=== PATIENT | male | born 1945 | race Caucasian/White ===

== ENCOUNTER 2016-12-07 05:57 | Inpatient (IN) | payer MEDICARE, BC ==
[~2016-12-07 05:57] MED LIST: Albuterol/Ipratropium 3.0-0.5 MG/3 ML Neb Soln NEB ONE; cefOXitin 2 GM in Sodium Chloride 0.9% 50 ML IV ONE
[2016-12-07] MEDS ORDERED: Dextrose 5%-Lactated Ringers 1,000 ML IV SCH ×2 (06:00→07:00)
[2016-12-07] MEDS ORDERED: fentaNYL 250 MCG/5 ML SDV ONE ×2 (07:24→08:21)
[2016-12-07] MEDS ORDERED: Succinylcholine/Normal Saline 200 MG/10 ML Syringe ONE (07:24)
[2016-12-07] MEDS ORDERED: Propofol 200 MG/20 ML SDV ONE (07:24)
[2016-12-07] MEDS ORDERED: Rocuronium 50 MG/5 ML Vial ONE (07:24)
[2016-12-07] MEDS ORDERED: Ondansetron 4 MG/2 ML SDV ONE (07:24)
[2016-12-07] MEDS ORDERED: Midazolam 1 MG/ML 2 ML SDV ONE (07:24)
[2016-12-07] MEDS ORDERED: Dexamethasone 4 MG/ML SDV ONE (07:24)
[2016-12-07] MEDS ORDERED: Neostigmine Methylsulfate 1 MG/ML 5 ML Syringe ONE (07:24)
[2016-12-07] MEDS ORDERED: Etomidate 2 MG/ML 10 ML SDV ONE (07:26)
[2016-12-07] MEDS ORDERED: Levalbuterol HCl 1.25 MG/3 ML Neb NEB ONE (07:30)
[2016-12-07] MEDS ORDERED: ceFAZolin 2 GM in Premix Bag 1 BAG IV ONE (07:45)
[2016-12-07] MEDS ORDERED: ePHEDrine 50 MG/ML SDV ONE (08:05)
[2016-12-07] MEDS ORDERED: Naloxone 0.4 MG/ML SDV IV PRN (08:53)
[2016-12-07] MEDS ORDERED: HYDROmorphone/Normal Saline 15 MG/30 ML PCA IV PRN (09:00)
[2016-12-07] MEDS ORDERED: Ondansetron 4 MG/2 ML SDV IV PRN (10:17)
[2016-12-07] MEDS ORDERED: Levalbuterol HCl 1.25 MG/3 ML Neb INH PRN (10:24)
[2016-12-07] MEDS: Metoclopramide 10 MG/2 ML SDV IV SCH ×3 (10:49→23:35)
[2016-12-07] MEDS: Pantoprazole 40 MG Vial IV SCH (10:49)
[2016-12-07] MEDS ORDERED: Lactated Ringers 1,000 ML ONE (11:42)
[2016-12-07] MEDS: Levalbuterol HCl 1.25 MG/3 ML Neb INH SCH ×2 (13:32→21:00)
[2016-12-07] MEDS: Dextrose 5%-Lactated Ringers 1,000 ML IV SCH ×2 (14:31→20:54)
[2016-12-07] MEDS: ceFAZolin 2 GM in Sodium Chloride 0.9% 50 ML IV SCH ×2 (15:23→23:35)
[2016-12-07] MEDS: Carvedilol 12.5 MG Tab PO SCH (20:59)
[2016-12-07] MEDS: Tamsulosin 0.4 MG Cap.ER PO SCH (20:59)
[2016-12-07] MEDS: QVAR INHALER INH SCH (21:00)
[2016-12-07] MEDS ORDERED: Montelukast 10 MG Tab PO SCH (21:00)
[2016-12-08] MEDS: Dextrose 5%-Lactated Ringers 1,000 ML IV SCH (03:13)
[2016-12-08] MEDS: Metoclopramide 10 MG/2 ML SDV IV SCH ×4 (05:31→22:41)
[2016-12-08] MEDS: ceFAZolin 2 GM in Sodium Chloride 0.9% 50 ML IV SCH (07:32)
[2016-12-08] MEDS: QVAR INHALER INH SCH (07:32)
[2016-12-08] MEDS: Levalbuterol HCl 1.25 MG/3 ML Neb INH SCH (07:32)
[2016-12-08] MEDS ORDERED: Levalbuterol HCl 1.25 MG/3 ML Neb INH PRN (07:56)
[2016-12-08] MEDS ORDERED: Dextrose 5%-Lactated Ringers 1,000 ML IV SCH (08:00)
[2016-12-08] MEDS ORDERED: Losartan 50 MG Tab PO SCH (09:00)
[2016-12-08] MEDS: Carvedilol 12.5 MG Tab PO SCH ×2 (09:13→21:08)
[2016-12-08] MEDS: Pantoprazole 40 MG Vial IV SCH (11:19)
[2016-12-08] MEDS: HYDROmorphone 2 MG Tab PO PRN ×3 (11:33→19:40)
[2016-12-08] MEDS: Tamsulosin 0.4 MG Cap.ER PO SCH (21:08)
[2016-12-09] MEDS: Metoclopramide 10 MG/2 ML SDV IV SCH (05:14)
[2016-12-09 07:46] VITALS: BP 137/87
--- NOTE | 2016-12-10 08:40 | DISCH ---
ADMISSION DIAGNOSES: Gastroesophageal reflux disease refractory to medical management, moderate persistent asthma, dyslipidemia, erectile dysfunction, ejection fraction 39% to 40%, Lexiscan 01/22/2014, environmental allergies, hypertension, obstructive chronic bronchitis, osteoarthrosis involving lower leg, and seasonal affective disorder. 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 HISTORY: David Hebert is a 71-year-old male with longstanding history of GERD refractory to medical management. After preoperative evaluation and discussion of possible risks and possible complications, he wished to proceed with surgical procedure. HOSPITAL COURSE: had his surgery on 12/07/2016. He had no operative complications. On postop day 1, he was started on a clear liquid diet and advanced to full liquid diet. On postop day 2, his pain was well managed. He received dietary instructions. His activity was good. Vital signs were stable, and he was able to be discharged to home. PHYSICAL EXAMINATION: GENERAL: David Hebert is a 71-year-old male. He is alert and orientated. Height is 5 feet 11 inches. Weight is 187 pounds. SKIN: Warm and dry. Color is good. VITAL SIGNS: TPR is 97.7, 78, 18. Blood pressure 116/77. HEENT: Negative. NECK: Supple. HEART: Regular rate and rhythm. LUNGS: Clear. ABDOMEN: Dressings dry and intact. Abdominal binder is on. EXTREMITIES: Without peripheral edema. DISPOSITION: Discharged to home. CONDITION: Stable and improving. FOLLOWUP: Followup appointment with Dagoberto Eagle MD, at [facility] on 12/16/2016 at 8 a.m. HOME MEDICATIONS: Dilaudid 2 mg q.4 hours p.r.n. pain #50. He is to resume his home medication of albuterol; ProAir inhaler 2 puffs every 6 hours; QVAR 80 mcg 2 puffs inhalation twice daily; Pulmicort 0.5 mg inhalation twice daily; carvedilol 12.5 mg oral twice daily; Nexium 40 mg oral daily; Flonase 2 sprays to nasal daily; Advair 250/50 one puff twice daily; albuterol sulfate 2.5 mg/3 mL, 3 mL inhalation every 4 hours p.r.n. shortness of breath; Cozaar 50 mg oral daily; Ocuvite one tablet oral daily; Dulera 200/5 mcg 2 puffs oral twice daily; simvastatin 40 mg oral at bedtime; and Flomax 0.4 mg oral daily. DIET AFTER DISCHARGE: Full liquid diet for 2 weeks. Drink 8 to 10 glasses of water a day. ACTIVITY: No lifting greater than 10 pounds for 2 weeks. Driving; do not drive while on pain medication. Shower and bathing: May shower. Notify provider of fever, increased pain, nausea, or vomiting. Wound incision care; keep site clean and dry. Wear abdominal binder for 2 weeks and as tolerated. Special instructions; use incentive spirometer 10 times every hour while awake for 2 weeks.
--- NOTE | 2016-12-10 09:23 | PN ---
DATE OF SERVICE: 12/08/2016 The patient has been afebrile with stable vital signs. No major problem has been noted overnight. Plan will be to go to a full-liquid diet today, oral pain medication, and have Dietary see the patient regarding dietary management over the next few days. Will tentatively plan for discharge home tomorrow. Dagoberto Eagle MD /[id number]
--- NOTE | 2016-12-11 08:49 | OR ---
DATE OF PROCEDURE: 12/07/2016 PREOPERATIVE DIAGNOSIS: Gastroesophageal reflux disease refractory to medical management. POSTOPERATIVE DIAGNOSES: 1. Gastroesophageal reflux disease refractory to medical management associated with large paraesophageal diaphragmatic hernia. 2. Mediastinal lipoma. OPERATIVE PROCEDURES: 1. Diagnostic laparoscopy with a laparoscopic Lalitha fundoplication along with repair of paraesophageal diaphragmatic hernia with mesh (08799). 2. Excision of mediastinal lipoma (72361). ANESTHESIA: General. CARE SERVICES MANAGER: Tammi Delarosa PA-C. INDICATIONS FOR PROCEDURE: This is 71-year-old presenting with progressively worsening gastroesophageal reflux symptoms. Associated with this is quite a bit in the way of pulmonary symptoms, which were suspicious are related to the reflux problem as well. Plan is to proceed with a Lalitha fundoplication. Potential risks of the procedure, including bleeding, infection, injury to the viscera in the area, or possible complications related to the fundoplication such as dysphagia, gas-bloat syndrome, disorders of gastric emptying rate, as well as possibility of incomplete relief of reflux symptoms were all gone over, along with the remote possibility of cardiopulmonary, septic, or hemorrhagic complications leading to , and he wishes to proceed. DETAILS OF PROCEDURE: The patient was taken to the operating room. After general endotracheal anesthesia was induced, the patient was placed in the lithotomy position, Terry catheter was inserted, and the abdomen was prepped and draped. At 15 cm inferior and 5 cm left of xiphoid process, a transverse incision was made. Peritoneal cavity was entered under direct vision with Optiview trocar and 15 mmHg pressure with CO2. The laparoscope was reinserted. No underlying trocar insertion site injuries were seen. Following this, 4 additional trocars were placed across the upper mid abdomen, and general exploration was undertaken. Upon elevation of the liver, the patient was noted to have a quite large diaphragmatic hernia. This had a major paraesophageal component to it with roughly a third of the stomach being up into the chest. This was gradually reduced, and the patient, upon subsequent dissection, was noted not to have any significant shortening of the esophagus. The peritoneum along the edges of the diaphragmatic hernia was incised and reflected downward. This allowed further dissection of the esophagus from the diaphragmatic crura on each side, and then a retroesophageal window was established. Using continued Harmonic scalpel dissection, the attachments to the distal esophagus were freed up. This eventually led to a very satisfactory intraabdominal esophageal length with Yudy drain being released of any tension around the EG junction. This was measured at 5 cm. In the course of the mediastinal dissection, lipomatous tissue was obtained posterior to the esophagus, as well as a little bit anteriorly. The mediastinal lipoma was then delivered from the field. At this point, the crural repair was accomplished with a series of 0-Ethibond sutures, reinforced with PTFE pledgets. The size of the hiatal hernia led to the decision to proceed with reinforcement of this with Phasix mesh. This was cut such that it lay across the crural repair posteriorly and then alongside the esophagus over the diaphragm on each side, and this was fixed in position with titanium tacking screws. At this point, the omentum was divided away from the greater curvature of the stomach and the mid level of the greater curvature. This was done with Harmonic scalpel, and then dissection continued proximally, dividing the short gastric vessels, including the highest and posterior short gastric vessels. This resulted in a very satisfactory mobile fundus, the latter which was retrieved through the retroesophageal window. A guidewire was then passed orally per Anesthesia and over this, a 54-Spanish Savary dilator was positioned. A 2 cm free stitch fundoplication was then accomplished with 0-Ethibond sutures reinforced with PTFE pledgets. Each of these sutures included bites of the underlying esophagus to help fix it in position, and following the initial fundoplication sutures, on the left and then on the right side, sutures were taken between the diaphragm and the fundus, again with the same suture/pledget combination, to help fix the position of the fundoplication. At this point, no further problems were noted. Trocars were removed. The peritoneal cavity was deflated. The fascia at the 12-mm trocar site, used for the camera, was closed with 0-Vicryl stitch and the skin with 4-0 Vicryl skin stitch. Physician operator assistant i cementing, Tammi Delarosa, played an essential role in assisting in this case, helping to position the patient, retract structures as needed, as well as suturing and cutting sutures as indicated. Her presence improved the patient's safety and decreased the operative time. Dagoberto Eagle MD /[id number]
== END 2016-12-09 08:35 | disposition home or self-care (01) | DRG 327 ==
LOC: JP.SDS 05:57 → JP.MS 05:57 → EDSTATUS 08:00 → JP.2SS 09:45 → UNDOADMIN 09:45 → JP.MS 09:45
PROVIDERS: ADMIT Surgery; ATTEND Surgery
PROC: 0DV44ZZ Restriction of Esophagogastric Junction, Percutaneous Endoscopic Approach (ICD-10-PCS; principal; 2016-12-07)
PROC: 0BUR4JZ (ICD-10-PCS; principal; 2016-12-07)
PROC: 0WBC4ZX Excision of Mediastinum, Percutaneous Endoscopic Approach, Diagnostic (ICD-10-PCS; principal; 2016-12-07)
PROC: 0BUS4JZ (ICD-10-PCS; principal; 2016-12-07)
DX: K21.9 Gastro-esophageal reflux disease without esophagitis (principal); I50.32 Chronic diastolic (congestive) heart failure; K44.9 Diaphragmatic hernia without obstruction or gangrene; I11.0 Hypertensive heart disease with heart failure; G47.30 Sleep apnea, unspecified; Z87.891 Personal history of nicotine dependence; E78.5 Hyperlipidemia, unspecified; J44.9 Chronic obstructive pulmonary disease, unspecified; Z85.828 Personal history of other malignant neoplasm of skin; Z96.652 Presence of left artificial knee joint; Z91.012 Allergy to eggs; Z91.018 Allergy to other foods; Z91.010 Allergy to peanuts; Z88.8 Allergy status to other drugs, medicaments and biological substances; D17.4 Benign lipomatous neoplasm of intrathoracic organs
CPT/HCPCS: 88304; 94640; 94762; A9270-GY; C9113; J0690; J1100; J1170; J2250; J2405; J2704; J2765; J3010; J7042; J7050; J7120

== ENCOUNTER 2016-12-21 05:38 | Day surgery (SDC) | payer MEDICARE, BC ==
[2016-12-21] MEDS: Dextrose 5%-Lactated Ringers 1,000 ML IV SCH ×2 (06:42→10:31)
[2016-12-21] MEDS ORDERED: ceFAZolin 2 GM in Premix Bag 1 BAG IV ONE (07:15)
[2016-12-21] MEDS ORDERED: Meropenem 500 MG SDV ONE (08:00)
[2016-12-21] MEDS ORDERED: Lidocaine 1% with EPINEPHrine 1:100,000 50 ML MDV ONE (08:00)
[2016-12-21] MEDS ORDERED: Bupivacaine 0.5% 50 ML MDV ONE (08:00)
[2016-12-21] MEDS ORDERED: Midazolam 1 MG/ML 2 ML SDV ONE (08:27)
[2016-12-21] MEDS ORDERED: fentaNYL 100 MCG/2 ML SDV ONE ×3 (08:27→09:18)
[2016-12-21] MEDS ORDERED: Etomidate 2 MG/ML 10 ML SDV ONE ×4 (08:32→09:00)
[2016-12-21] MEDS ORDERED: Linezolid 200 MG/100 ML Bag IRR ONE (09:31)
[2016-12-21] MEDS ORDERED: Ketorolac 30 MG/ML SDV IM ONE (10:02)
[2016-12-21] MEDS ORDERED: HYDROmorphone 2 MG Tab PO PRN (10:44)
[2016-12-21 12:14] VITALS: BP 135/87
--- NOTE | 2016-12-23 07:35 | OR ---
DATE OF PROCEDURE: 12/21/2016 PREOPERATIVE DIAGNOSIS: Recurrent incarcerated left inguinal hernia. POSTOPERATIVE DIAGNOSES: 1. Recurrent incarcerated left inguinal hernia. 2. Segments of intraperitoneal mesh x2. 3. Left ilioinguinal nerve at high risk for nerve entrapment. OPERATIVE PROCEDURES: 1. Open repair of recurrent incarcerated left inguinal hernia with mesh (72672). 2. Removal of intraperitoneal mesh (80849). 3. Division of left ilioinguinal nerve (68265). ANESTHESIA: Local plus IV sedation. PREVENTIVE MAINTENANCE ENGINEER: Tammi Delarosa PA-C. INDICATIONS FOR PROCEDURE: This is a 71-year-old male presenting with increasing symptomatic large left inguinal hernia. This was repaired previously many years ago. The patient does not recount any mesh having been used in that area, and the previous operative records are not presently available. Plan is to proceed with an open repair of the recurrent hernia, which is not reducible entirely at this time, and we will likely use a mesh plug technique. Potential risks of procedure including bleeding, infection, injury to underlying viscera, possible recurrence of the hernia, and problems with nerve entrapment were all reviewed, and the patient wishes to proceed. DETAILS OF PROCEDURE: The patient was taken to the operating room and placed in a supine position. After IV sedation was administered, the abdomen and groin areas were prepped and draped. The left inguinal area was then anesthetized with 1% lidocaine mixed with Marcaine, and a standard left inguinal incision was made, reusing the previous incision and extending it somewhat laterally. This was carried down through the skin and subcutaneous tissue. At this point, a fairly tedious dissection ensued. As one dissected further, the patient was noted to have 2 segments of mesh present within the hernia. These had obviously prolapsed in a plane anterior to the Doni's ligament and then inferiorly to the Doni's ligament and inguinal ligament into the area of herniation. These were eventually dissected free from its surrounding soft tissues. Laterally, there was a large peritoneal defect at this point, and the patient had a broad defect through the medial and lateral floors of the inguinal region on the left side. During the course of dissection, the ilioinguinal nerve was noted to be within the field of dissection and certainly likely to be involved in postoperative nerve entrapment and scarring. Given this, this was dissected to the lateral aspect of the incision, divided there, and sent as a separate specimen. At this point, 2 extra large mesh plugs were then placed. One was placed somewhat medially and one lateral to that. The peritoneum was reapproximated at the lateral aspect and dissected free somewhat from the abdominal wall to allow the mesh plug to be placed into that location without grossly being against the viscera, which would likely be the sigmoid colon in this area. The medial plug was then affixed with multiple titanium tacking screws to the bone of Doni's ligament, helping to fix it in that position. The lateral plug was then affixed to the Doni's ligament medially with tacking screws. Then, in each case, the underside of the mesh was brought up underneath the conjoined tendon. It was affixed to the underside of the conjoined tendon with horizontal mattress sutures of 3-0 Vicryl stitch. This included some overlap superiorly between the 2 segments of mesh, and we were then able to secure the mesh laterally underneath the abdominal wall at that level as well. Two sutures were then placed to the inguinal ligament, intentionally making these very superficial over the ligament. These sutures were overlying and somewhat medial to the external iliac vessels, as these coursed underneath the inguinal ligament, as it was felt that we needed to get some fixation in that area in order to prevent herniation from that approach. Once these were all in place, the area was irrigated with Zyvox-containing saline solution. There were some remnants of some mesh at the level of the external oblique aponeurosis, which were, at this point, still quite firmly attached, and this layer was then approximated with a running #2 Vicryl stitch. The subcutaneous tissues were reapproximated with some #4-0 Vicryl stitch and the skin with a 4-0 Vicryl subcuticular stitch. Steri- Strips applied. The patient was taken to the recovery room in satisfactory condition. Physician assistant county attorney, Tammi Delarosa, played an essential role in assisting in this case, helping to position the patient, retract structures as needed, as well as suturing and cutting sutures as indicated. Her presence improved the patient's safety and decreased operative time. Dagoberto Eagle MD /[id number]
== END 2016-12-21 13:08 | disposition home or self-care (01) ==
LOC: JP.SDS 05:38
PROVIDERS: ATTEND Surgery
DX: K40.31 Unilateral inguinal hernia, with obstruction, without gangrene, recurrent (principal)
CPT/HCPCS: 49402; 49521; 64772; A9270; C1781; J0690; J1885; J2020; J2250; J3010; J7042; 88300; 88302; J2185

== ENCOUNTER 2017-02-10 12:32 | Inpatient (IN) | payer MEDICARE, BC ==
[2017-02-10] MEDS ORDERED: Sodium Chloride 0.9% 10 ML Syringe FLUSH PRN (13:37)
[2017-02-10] MEDS ORDERED: Polyethylene Glycol 3350 Powder 17 GM Packet PO PRN (13:37)
[2017-02-10] MEDS ORDERED: Acetaminophen 325 MG Tab PO PRN (13:37)
[2017-02-10] MEDS ORDERED: Ondansetron 4 MG Tab.DIS PO PRN (13:37)
--- NOTE | 2017-02-10 13:45 | PCM.HP ---
H&P History of Present Illness - General Date of Service: 02/10/17 Admit Problem/Dx: Admission Diagnosis/Problem Admission Diagnosis/Problem DVT, Deep venous thrombosis Source of Information: Patient, Family, Provider History Limitations: Reports: No Limitations - History of Present Illness Initial Comments - Free Text/Narative: and a 1 claudio Che presents as a direct admission from the surgery clinic and he presented there for a routine postoperative followup. While there he mentioned that he had some right ankle swelling and a little bit of stiffness. He was sent over for an ultrasound and this revealed an extensive right leg DVT. He reports that he has had only mild swelling for the past couple of days. Swelling only involves his ankle area and he was able to bike more than 8 miles yesterday with no pain in the leg. He does not mention any shortness of breath or cough. No fevers. No chest pain. In general he feels well and was very surprised that he had such a large blood clot. He does not have a history of blood clots and there is no family history of these either. He did have a Lalitha and hernia surgery about 7 weeks ago and has been doing well from the standpoint. He has not taken any pain pills. Right Feet Pain Score (Numeric/FACES): 6 - Related Data Allergies/Adverse Reactions: Allergies Allergy/AdvReac Type Severity Reaction Status Date / Time egg Allergy Severe Anaphylactic Verified 02/10/17 13:44 Shock peanut Allergy Hives Verified 02/10/17 13:44 tramadol Allergy Rash Verified 02/10/17 13:45 Home Medications: Home Meds Carvedilol 12.5 mg PO BID 06/17/13 [History] Simvastatin 40 mg PO BEDTIME 06/17/13 [History] Lutein/Minerals/Vit A,C & E [Ocuvite] 1 tab PO DAILY 08/04/13 [History] Losartan [Cozaar] 50 mg PO DAILY 01/08/15 [History] Tamsulosin HCl [Flomax] 0.4 mg PO DAILY 12/03/16 [History] Levalbuterol Tartrate [Xopenex HFA] 2 puff IH Q4HR PRN 12/21/16 [History] Fluticasone/Salmeterol [Advair 250-50 Diskus] 2 each IH DAILY 02/10/17 [History] Past Medical History HEENT History: Reports: Allergic Rhinitis, Impaired Vision Cardiovascular History: Reports: High Cholesterol, Hypertension, SOB on Exertion Respiratory History: Reports: Asthma, Pneumonia, Recurrent Gastrointestinal History: Reports: Colon Polyp, Gastritis, GERD, Hiatal Hernia Musculoskeletal History: Reports: Arthritis, Back Pain, Chronic, Osteoarthritis Neurological History: Reports: Concussion Oncologic (Cancer) History: Reports: Other (See Below) 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 Dermatologic History: Reports: Eczema - Infectious Disease History Infectious Disease History: Reports: Chicken Pox, Measles - Past Surgical History Head Surgeries/Procedures: Reports: None GI Surgical History: Reports: Colonoscopy, EGD, Hernia, Inguinal, Lalitha Fundoplication, Polypectomy Endocrine Surgical History: Reports: None Neurological Surgical History: Reports: None Musculoskeletal Surgical History: Reports: Knee Replacement, Shoulder Surgery Dermatological Surgical History: Reports: None Social & Family History - Family History Family Medical History: Noncontributory - Tobacco Use Smoking Status *Q: Former Smoker Years of Tobacco use: 20 Used Tobacco, but Quit: Yes Month Tobacco Last Used: june Second Hand Smoke Exposure: No - Caffeine Use Caffeine Use: Reports: Coffee Caffeine Use Comment: 3 cups daily - Alcohol Use Days Per Week of Alcohol Use: 0 - Recreational Drug Use Recreational Drug Use: No H&P Review of Systems - Review of Systems: Review Of Systems: See Below Free Text/Narrative: A complete 12 point review of systems was obtained. Pertinent positives and negatives are noted in the history of present illness. All other systems were reviewed and were negative except as noted. Exam - Exam Exam: See Below - Vital Signs Vital Signs: Last Vital Signs Temp 36.4 C 02/10/17 12:46 Pulse 70 02/10/17 12:46 Resp 18 02/10/17 12:46 BP 129/74 02/10/17 12:46 Pulse Ox 97 02/10/17 12:46 Weight: 83.461 kg - Exam Quality Assessment: No: Supplemental Oxygen General: Alert, Oriented, Cooperative. No: Mild Distress HEENT: Conjunctiva Clear, Mucosa Moist & Charlack. No: Scleral Icterus Neck: Supple, Trachea Midline. No: Lymphadenopathy, Thyromegaly Lungs: Clear to Auscultation, Normal Respiratory Effort Cardiovascular: Regular Rate, Regular Rhythm. No: Systolic Murmur Abdomen: Normal Bowel Sounds, Soft, Tenderness (very mild RLQ). No: Distention Back Exam: Normal Inspection, Full Range of Motion Extremities: Normal Pulses, Edema (mild right ankle and calf edema), Increased Warmth (right calf). No: Cyanosis, Calf Tenderness Peripheral Pulses: 2+: Dorsalis Pedis (L), Dorsalis Pedis (R) Skin: Warm, Dry, Other (varicose veins right lower leg) Neuro Extensive - Mental Status: Alert, Oriented x3, Nl Response to Commands Neuro Extensive - Motor, Sensory, Reflexes: CN II-XII Intact. No: Dysarthria, Abnormal Motor, Tremor Psychiatric: Alert, Normal Affect - Patient Data Result Diagrams: 02/10/17 13:55 02/10/17 13:55 Imaging Impressions last 24 hrs: venous ultrasound right leg - images personally reviewed - there is evidence for extensive DVT extending and from the proximal common femoral vein all the way down to the popliteal vein. *Q Meaningful Use (ADM) - VTE *Q VTE Criteria *Q: - VTE Risk Assess *Q Each Risk Factor Represents 1 Point: History of Prior Major Surgery, Varicose Veins, Swollen Legs, Current Total Score 1 Point Risk Factors: 3 Each Risk Factor Represents 2 Points: Age 60 - 74 Years Total Score 2 Point Risk Factors: 2 Each Risk Factor Represents 3 Points: None Total Score 3 Point Risk Factors: 0 Each Risk Factor Represents 5 Points: None Total Score 5 Point Risk Factors: 0 Venous Thromboembolism Risk Factor Score *Q: 5 - Stroke *Q Stroke Criteria *Q: - AMI *Q AMI Criteria *Q: - Problem List (1) Deep vein thrombosis (DVT) of right lower extremity SNOMED Code(s): 283395381 ICD Code: I82.401 - ACUTE EMBOLISM AND THOMBOS UNSP DEEP VEINS OF R LOW EXTREM Status: Acute Current Visit: Yes Qualifiers: Affected thrombotic vein of extremity: femoral Chronicity: acute Qualified Code(s): I82.411 - Acute embolism and thrombosis of right femoral vein (2) Mild persistent asthma SNOMED Code(s): 549470312 ICD Code: J45.30 - MILD PERSISTENT ASTHMA, UNCOMPLICATED Status: Chronic Current Visit: Yes Qualifiers: Asthma complication type: uncomplicated Qualified Code(s): J45.30 - Mild persistent asthma, uncomplicated Problem List Initiated/Reviewed/Updated: Yes Orders Last 24hrs: Active Orders 24 hr Category Date Time Status Patient Status [ADT] Routine ADT 02/10/17 13:37 Ordered Notify Provider Vital Signs [RC] ASDIRECTED Care 02/10/17 13:39 Ordered Oxygen Therapy [RC] PRN Care 02/10/17 13:37 Ordered Up ad Sapphire [RC] ASDIRECTED Care 02/10/17 13:37 Ordered VTE/DVT Education [RC] Per Unit Routine Care 02/10/17 13:37 Ordered Vital Signs [RC] Q4H Care 02/10/17 13:37 Ordered Regular Diet [DIET] Diet 02/10/17 Lunch Ordered BASIC METABOLIC PANEL,BMP [CHEM] AM Lab 02/11/17 05:11 Ordered BASIC METABOLIC PANEL,BMP [CHEM] Routine Lab 02/10/17 13:37 Ordered CBC W/O DIFF,HEMOGRAM [HEME] AM Lab 02/11/17 05:11 Ordered CBC WITH AUTO DIFF [HEME] Routine Lab 02/10/17 13:37 Ordered INR,PT,PROTHROMBIN TIME [COAG] AM Lab 02/11/17 05:11 Ordered INR,PT,PROTHROMBIN TIME [COAG] Routine Lab 02/10/17 13:37 Ordered Acetaminophen [Tylenol] Med 02/10/17 13:37 Ordered 650 mg PO Q4H PRN Enoxaparin [Lovenox] Med 02/10/17 13:45 Ordered 120 mg SUBCUT Q24H Ondansetron [Zofran ODT] Med 02/10/17 13:37 Ordered 4 mg PO Q6H PRN Polyethylene Glycol 3350 [MiraLAX] Med 02/10/17 13:37 Ordered 17 gm PO DAILY PRN Sodium Chloride 0.9% [Saline Flush] Med 02/10/17 13:37 Ordered 10 ml FLUSH ASDIRECTED PRN Warfarin [Coumadin] Med 02/10/17 13:41 Once 7.5 mg PO ONETIME ONE Saline Lock Insert [OM.PC] Routine Oth 02/10/17 13:37 Ordered Resuscitation Status Routine Resus Stat 02/10/17 13:37 Ordered Assessment/Plan Comment:: Assessment and plan - Acute, symptomatic right leg DVT - extends from the proximal common femoral vein distally to the calf. Mild ankle swelling and only minimal pain at this time. Likely provoked with recent surgery. No family history or personal history of blood clots. No active cancer known at this time. we discussed potential treatment options including initial bridging with heparin versus enoxaparin as well as more of a long-term management with warfarin versus one of the NOAC's. He elected to utilize warfarin based on cost. -Enoxaparin 1.5 mg per kilogram every 24 hours -Initiate warfarin -baseline and daily INR -Referral to the Coumadin clinic at the time of discharge -Anticipate 3-6 months of therapy Mild persistent asthma - no active symptoms at this time. -cont home meds Essential hypertension - plan to continue usual medications. Maintenance issues - - DVT prophylaxis - should be covered by enoxaparin and warfarin - GI prophylaxis - PPI - Nutrition - regular diet - Terry catheter - not indicated CODE STATUS - full code Admission justification - This patient will be admitted for inpatient services and is medically appropriate meeting medical necessity for inpatient admission as outlined in my documentation. I reasonably expect the patient will require inpatient services that span a period time over 2 midnights. I reasonably expect this patient to be discharged or transferred within 96 hours [facility]. Disposition - anticipate discharge home in a couple of days Primary care physician - Dr Gracie Loaiza M.D.
[2017-02-10] MEDS ORDERED: Enoxaparin 120 MG/0.8 ML Syringe SUBCUT SCH (16:00)
[2017-02-10] MEDS ORDERED: Warfarin 2.5 MG Tab PO ONE (16:00)
[2017-02-10] MEDS ORDERED: Simvastatin 20 MG Tab PO SCH (21:00)
[2017-02-10] MEDS: Carvedilol 12.5 MG Tab PO SCH (21:08)
[2017-02-11 08:07] VITALS: BP 147/78
[2017-02-11] MEDS: Carvedilol 12.5 MG Tab PO SCH (09:30)
--- NOTE | 2017-02-11 11:47 | PCM.DCSUM1 ---
Discharge Summary - Hospital Course Brief History: this 71-year-old male with recent Lalitha fundoplication and hernia surgery who presented with right leg swelling to the clinic and was directly admitted for management of a right leg DVT. - Discharge Data Discharge Date: 02/11/17 Discharge Disposition: Home, Self-Care 01 Condition: Good - Discharge Diagnosis/Problem(s) (1) Deep vein thrombosis (DVT) of right lower extremity SNOMED Code(s): 324803708 ICD Code: I82.401 - ACUTE EMBOLISM AND THOMBOS UNSP DEEP VEINS OF R LOW EXTREM Status: Acute Qualifiers: Affected thrombotic vein of extremity: femoral Chronicity: acute Qualified Code(s): I82.411 - Acute embolism and thrombosis of right femoral vein (2) Mild persistent asthma SNOMED Code(s): 495695472 ICD Code: J45.30 - MILD PERSISTENT ASTHMA, UNCOMPLICATED Status: Chronic Qualifiers: Asthma complication type: uncomplicated Qualified Code(s): J45.30 - Mild persistent asthma, uncomplicated - Patient Summary/Data Hospital Course: Chato presented to the surgery clinic for a routine follow-up and mentioned right ankle swelling and pain. Workup there revealed a large right leg DVT. He was admitted to the hospital for initiation of anticoagulation. Warfarin doxepin were initiated at the time of admission. Overnight there were no acute issues. The morning after admission he is essentially pain-free and feels well. He would like to go home at this time. His is comfortable giving him subcutaneous injections of Lovenox apparent. He has not had any bleeding issues with the Jose apparent during the hospital stay. I suspect that this blood clot was provoked with recent surgery. I don't believe that he needs additional workup at this time. I do recommend at least 3 and possibly 6 months of anticoagulation. At the time of discharge the plan is for him to continue Jose apparent 1.5 mg/kg every 24 hours for the next 4 days. He will be taking warfarin 7.5 mg daily. He will be returning to the hospital in 2 days for a repeat INR and then will be referred to the warfarin clinic starting next week. He was initially expected to be hospitalized for at least 2 midnights to manage this large DVT but clinically he improved much faster than I was expecting. He has excellent outpatient resources and is safe for hospital discharge at this time. - Patient Instructions Diet: Regular Diet as Tolerated Activity: As Tolerated Showering/Bathing: May Shower Notify Provider of: Fever, Increased Pain, Nausea and/or Vomiting Other/Special Instructions: 1. You were in the hospital for management of a right leg deep vein thrombosis. This blood clot will be treated with a combination of warfarin and enoxaparin. You will take enoxaparin 120 mg underneath your skin once daily for 4 days (first dose due tomorrow at lunch time). Your warfarin dosing will be 7.5 mg once a day in the afternoon. You should take warfarin as directed by the Coumadin clinic for at least 3 months and maybe up to 6 months for this provoked deep vein thrombosis. 2. Referral to in the Coumadin clinic at [facility] - diagnosis DVT, INR goal 2-3, length of need 3-6 months. 3. Please return to the the emergency room registration desk for an outpatient lab (INR - blood test to monitor warfarin levels) on Wednesday morning. I will contact you with the results and let you know if we need to adjust your Coumadin dosing or not. 4. Please seek medical attention if you develop fever greater than 101, have worsening of your leg swelling or you develop sudden onset of shortness of breath or chest pain. - Discharge Plan Prescriptions/Med Rec: Enoxaparin [Lovenox] 120 mg SUBCUT Q24H #4 syringe Warfarin [Coumadin] 7.5 mg PO DAILY #30 tablet Home Medications: Home Meds Carvedilol 12.5 mg PO BID 06/17/13 [History] Simvastatin 40 mg PO BEDTIME 06/17/13 [History] Lutein/Minerals/Vit A,C & E [Ocuvite] 1 tab PO DAILY 08/04/13 [History] Losartan [Cozaar] 50 mg PO DAILY 01/08/15 [History] Tamsulosin HCl [Flomax] 0.4 mg PO DAILY 12/03/16 [History] Levalbuterol Tartrate [Xopenex HFA] 2 puff IH Q4HR PRN 12/21/16 [History] Fluticasone/Salmeterol [Advair 250-50 Diskus] 2 each IH DAILY 02/10/17 [History] Enoxaparin [Lovenox] 120 mg SUBCUT Q24H #4 syringe 02/11/17 [Rx] Warfarin [Coumadin] 7.5 mg PO DAILY #30 tablet 02/11/17 [Rx] Patient Handouts: Warfarin: What You Need to Know, Warfarin Coagulopathy, How and Where to Give Subcutaneous Injections Using a Prefilled Syringe, Deep Vein Thrombosis Referrals: Ananda Bowman MD [Primary Care Provider] - (1-2 weeks - f/u hospital stay for right leg DVT) - Discharge Summary/Plan Comment DC Time >30 min.: No (25) - Patient Data Vitals - Most Recent: Last Vital Signs Temp 36.5 C 02/11/17 08:06 Pulse 74 02/11/17 09:30 Resp 18 02/11/17 08:06 BP 147/78 H 02/11/17 09:30 Pulse Ox 95 02/11/17 08:06 Weight - Most Recent: 83.461 kg I&O - Last 24 hours: Intake & Output 02/10/17 02/11/17 02/11/17 22:59 06:59 14:59 Intake Total 480 200 120 Balance 480 200 120 Lab Results - Last 24 hrs: Laboratory Results - last 24 hr 02/10/17 02/10/17 02/10/17 Range/Units 13:55 13:55 13:55 WBC 6.7 (4.5-11.0) K/uL RBC 3.84 L (4.30-5.90) M/uL Hgb 11.8 L D (12.0-15.0) g/dL Hct 37.3 L (40.0-54.0) % MCV 97 (80-98) fL MCH 31 (27-31) pg MCHC 32 (32-36) % Plt Count 217 (150-400) K/uL Neut % (Auto) 65 (36-66) % Lymph % (Auto) 21 L (24-44) % [place] % (Auto) 11 H (2-6) % Eos % (Auto) 4 (2-4) % Baso % (Auto) 0 (0-1) % PT 11.5 (9.5-12.0) sec INR 1.07 (0.80-1.20) Sodium 143 (140-148) mmol/L Potassium 3.9 (3.6-5.2) mmol/L Chloride 108 (100-108) mmol/L Carbon Dioxide 30 (21-32) mmol/L Anion Gap 4.7 L (5.0-14.0) mmol/L BUN 13 (7-18) mg/dL Creatinine 0.9 (0.8-1.3) mg/dL Est Cr Clr Drug Dosing 77.86 mL/min Estimated GFR (MDRD) > 60 (>60) Glucose 94 (74-106) mg/dL Calcium 8.7 (8.5-10.1) mg/dL 02/11/17 02/11/17 02/11/17 Range/Units 05:00 05:00 05:00 WBC 5.8 (4.5-11.0) K/uL RBC 3.59 L (4.30-5.90) M/uL Hgb 11.2 L (12.0-15.0) g/dL Hct 35.2 L (40.0-54.0) % MCV 98 (80-98) fL MCH 31 (27-31) pg MCHC 32 (32-36) % Plt Count 211 (150-400) K/uL Neut % (Auto) (36-66) % Lymph % (Auto) (24-44) % [place] % (Auto) (2-6) % Eos % (Auto) (2-4) % Baso % (Auto) (0-1) % PT 11.9 (9.5-12.0) sec INR 1.11 (0.80-1.20) Sodium 144 (140-148) mmol/L Potassium 4.0 (3.6-5.2) mmol/L Chloride 110 H (100-108) mmol/L Carbon Dioxide 29 (21-32) mmol/L Anion Gap 9.0 (5.0-14.0) mmol/L BUN 11 (7-18) mg/dL Creatinine 0.9 (0.8-1.3) mg/dL Est Cr Clr Drug Dosing 77.86 mL/min Estimated GFR (MDRD) > 60 (>60) Glucose 95 (74-106) mg/dL Calcium 8.5 (8.5-10.1) mg/dL Med Orders - Current: Current Medications Acetaminophen (Tylenol) 650 mg PO Q4H PRN PRN Reason: Pain (Mild 1-3)/fever Last Admin: 02/10/17 16:58 Dose: 650 mg Carvedilol (Coreg) 12.5 mg PO BID [facility] Last Admin: 02/11/17 09:30 Dose: 12.5 mg Enoxaparin Sodium (Lovenox) 120 mg SUBCUT Q24H [facility] Last Admin: 02/10/17 15:25 Dose: 120 mg Ondansetron HCl (Zofran Odt) 4 mg PO Q6H PRN PRN Reason: Nausea able to take PO Polyethylene Glycol (Miralax) 17 gm PO DAILY PRN PRN Reason: Constipation Simvastatin (Zocor) 40 mg PO BEDTIME [facility] Last Admin: 02/10/17 21:08 Dose: 40 mg Sodium Chloride (Saline Flush) 10 ml FLUSH ASDIRECTED PRN PRN Reason: Keep Vein Open Last Admin: 02/10/17 14:43 Dose: 10 ml Discontinued Medications Warfarin Sodium (Coumadin) 7.5 mg PO ONETIME ONE Stop: 02/10/17 16:01 Last Admin: 02/10/17 15:25 Dose: 7.5 mg *Q Meaningful Use (DIS) - VTE *Q VTE Criteria *Q: - Stroke *Q Stroke Criteria *Q: - AMI *Q AMI Criteria *Q:
[2017-02-11] MEDS ORDERED: Warfarin 2.5 MG Tab PO ONE (12:30)
[2017-02-11] MEDS ORDERED: Enoxaparin 120 MG/0.8 ML Syringe SUBCUT SCH (13:00)
--- NOTE | 2017-02-11 15:24 | PN ---
DATE OF SERVICE: 02/11/2017 SUBJECTIVE: was a direct admit from the clinic yesterday. He saw Dagoberto Eagle MD, for followup in his laparoscopic Lalitha fundoplication and inguinal hernia. He reported he was having some right leg swelling for the past 3 days and a dull ache. He was admitted to the hospital and found to have a DVT. REVIEW OF SYSTEMS: HEENT: Negative. NECK: Negative. CHEST: No chest pain. Fast irregular heart beat. Denies any shortness of breath. ABDOMEN: No abdominal pain. EXTREMITIES: As noted. NEUROLOGIC: Negative for headaches, dizziness, loss of coordination. Remainder of review of systems negative for any pertinent positives and negatives. OBJECTIVE: GENERAL: David Hebert is a 71-year-old male. VITAL SIGNS: Height is 5 feet 11 inches, weight is 184 pounds. TPR is 97.7, 77, 18. Blood pressure 147/78. HEENT: Negative. NECK: Supple. HEART: Regular rate and rhythm. LUNGS: Clear. ABDOMEN: Negative. EXTREMITIES: Reveal right lower extremity swelling. Pulse is good. NEUROLOGIC: Intact. PSYCHIATRIC: Mood and affect appropriate. SKIN: Without rashes. ASSESSMENT: Deep vein thrombosis, right lower extremity. Mild asthma. SP laparoscopic Lalitha fundoplication and SP inguinal hernia. PLAN: Anticoagulation studies were ordered. Factor V Leiden, prothrombin, anti- prothrombin, protein C deficiency, protein S deficiency. Elevated factor 8, 9, and 11. Dysfibrinognemia, hypercholesterolemia, glycoprotein, lupus anticoagulant, cardiolipin antibiotics, B2 glycoprotein 1 antibiotics, lipoprotein, sticky platelets syndrome. Michela Liz, Director of Nurses, questioned why Dagoberto Eagle MD was ordering anticoagulation therapy and why Surgery was seeing this patient because Dr. Loaiza did the admission and ordered his current anticoagulation therapy. She was checking with Mir Loaiza MD if he wanted these coagulation studies ordered by Dagoberto Eagle MD, at the time of this discharge. Dagoberto Eagle MD was notified. Tammi Delarosa PA-C /[id number]
== END 2017-02-11 12:30 | disposition home or self-care (01) | DRG 301 ==
LOC: JP.2SS 12:32
PROVIDERS: ADMIT Internal Medicine; ATTEND Internal Medicine
DX: I82.411 Acute embolism and thrombosis of right femoral vein (principal); J45.30 Mild persistent asthma, uncomplicated; Z98.890 Other specified postprocedural states; I10 Essential (primary) hypertension
CPT/HCPCS: 36415; 80048; 85025; 85027; 85610; A9270-GY; J1650; J7050

== ENCOUNTER 2017-03-30 00:53 | Observation (INO) | payer MEDICARE, BC ==
--- NOTE | 2017-03-30 02:02 | EDM.PDOC ---
[id number]: BACK PAIN Time Seen by Provider: 03/30/17 01:30 Source of Information: Reports: Patient, Family History Limitations: Reports: No Limitations - History of Present Illness INITIAL COMMENTS - FREE TEXT/NARRATIVE: 71-year-old male who has had worsening low back pain as well as cervical pain for the past 2-3 weeks tonight was suffering from intractable pain, he could not move his head, neck, and could not get out of bed. No incontinence or significant lower extremity weakness or paresthesias, but the pain was unbearable. This was after several doses of Dilaudid and a Tylenol with codeine. It took his 20 minutes just to get him out of bed and another 20 minutes to get in the car to come in for evaluation. He admits he thinks the pain medicine is starting to work because he is starting to move a little more freely but is still very uncomfortable. He was getting physical therapy, but that is being held until he can get an MRI because the physical therapist is concerned he may have a "fracture". Onset: Gradual Duration: Week(s): (Pain is worsening over the last 3 weeks) Location: Reports: Neck, Back Quality: Reports: Sharp, Stabbing Severity: Severe Improves with: Reports: Other (Standing or sitting up is somewhat better, staying still also helps) Worsens with: Reports: Other (Laying down is almost impossible) Associated Symptoms: Reports: Other (He is also struggling with chronic right lower leg pain). 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 (see below) (Several doses of Dilaudid and Tylenol with codeine) Neck Pain Score (Numeric/FACES): 6 - Related Data Allergies Allergy/AdvReac Type Severity Reaction Status Date / Time egg Allergy Severe Anaphylactic Verified 03/30/17 01:06 Shock peanut Allergy Hives Verified 03/30/17 01:06 tramadol Allergy Rash Verified 03/30/17 01:06 Home Meds: Home Meds Carvedilol 12.5 mg PO BID 06/17/13 [History] Simvastatin 40 mg PO BEDTIME 06/17/13 [History] Lutein/Minerals/Vit A,C & E [Ocuvite] 1 tab PO DAILY 08/04/13 [History] Losartan [Cozaar] 50 mg PO DAILY 01/08/15 [History] Tamsulosin HCl [Flomax] 0.4 mg PO DAILY 12/03/16 [History] Levalbuterol Tartrate [Xopenex HFA] 2 puff IH Q4HR PRN 12/21/16 [History] Fluticasone/Salmeterol [Advair 250-50 Diskus] 2 each IH DAILY 02/10/17 [History] Albuterol/Ipratropium [DuoNeb 3.0-0.5 MG/3 ML] 3 ml IH Q4HR PRN 03/30/17 [ History] Fluticasone Propionate [Flonase] 16 gm NS DAILY 03/30/17 [History] Montelukast [Singulair] 4 mg CHEW BEDTIME 03/30/17 [History] Warfarin [Coumadin] 5 mg PO DAILY 03/30/17 [History] Past Medical History HEENT History: Reports: Allergic Rhinitis, Impaired Vision Cardiovascular History: Reports: High Cholesterol, Hypertension, SOB on Exertion Respiratory History: Reports: Asthma, Pneumonia, Recurrent Gastrointestinal History: Reports: Colon Polyp, Gastritis, GERD, Hiatal Hernia Musculoskeletal History: Reports: Arthritis, Back Pain, Chronic, Osteoarthritis Neurological History: Reports: Concussion Oncologic (Cancer) History: Reports: Other (See Below) 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 Dermatologic History: Reports: Eczema - Infectious Disease History Infectious Disease History: Reports: Chicken Pox, Measles - Past Surgical History Head Surgeries/Procedures: Reports: None GI Surgical History: Reports: Colonoscopy, EGD, Hernia, Inguinal, Lalitha Fundoplication, Polypectomy Endocrine Surgical History: Reports: None Neurological Surgical History: Reports: None Musculoskeletal Surgical History: Reports: Knee Replacement, Shoulder Surgery Dermatological Surgical History: Reports: None Social & Family History - Family History Family Medical History: Noncontributory - Tobacco Use Smoking Status *Q: Never Smoker Years of Tobacco use: 20 Used Tobacco, but Quit: Yes Month Tobacco Last Used: june Second Hand Smoke Exposure: No - Caffeine Use Caffeine Use: Reports: Coffee Caffeine Use Comment: 3 cups daily - Alcohol Use Days Per Week of Alcohol Use: 0 - Recreational Drug Use Recreational Drug Use: No ED ROS GENERAL - Review of Systems Review Of Systems: See Below Constitutional: Denies: Fever, Chills HEENT: Reports: No Symptoms Respiratory: Denies: Shortness of Breath, Cough Cardiovascular: Denies: Chest Pain GI/Abdominal: Reports: Other (Recently had 2 abdominal surgeries, hiatal hernia and hernia repair this year). Denies: Abdominal Pain : Reports: No Symptoms Skin: Reports: No Symptoms Neurological: Denies: Headache, Paresthesia, Change in Speech Psychiatric: Reports: No Symptoms ED EXAM, UPPER BACK/NECK PAIN - Physical Exam Exam: See Below Exam Limited By: No Limitations General Appearance: Alert, Mild Distress (Patient is only mildly distressed at this time as he continues to move somewhat more freely) Eye Exam: Bilateral Eye: Normal Inspection Head Exam: Atraumatic Neck Exam: Paraspinous Muscle Tender (Significant paraspinous muscle tenderness and tightness from the lower cervical spine to the upper thoracic spine. Increased pain with extension of the neck) Cardiovascular/Respiratory: Regular Rate, Rhythm Back Exam: Paraspinal Tenderness (Very sore to the paraspinous area the lumbar spine as well) Neurologic: No Motor/Sensory Deficits Psychiatric: Normal Affect, Normal Mood Skin Exam: Normal Color Course - Vital Signs Last Recorded V/S: Last Vital Signs Temp 97.2 F 03/30/17 01:01 Pulse 76 03/30/17 01:01 Resp 18 03/30/17 01:01 BP 141/92 H 03/30/17 01:01 Pulse Ox 97 03/30/17 01:01 - Orders/Labs/Meds Orders: Active Orders 24 hr Category Date Time Status Sodium Chloride 0.9% [Saline Flush] Med 03/30/17 02:16 Active 10 ml FLUSH ASDIRECTED PRN Saline Lock Insert [OM.PC] Routine Oth 03/30/17 02:16 Ordered Medication Orders Hydromorphone HCl (Dilaudid) 1 mg IVPUSH Q1H PRN PRN Reason: Pain Non-Formulary Medication (Albuterol/Ipratropium [Duoneb 3.0-0.5 Mg/3 Ml]) 3 ml IH Q4HR PRN PRN Reason: Wheezing Non-Formulary Medication (Carvedilol [Carvedilol]) 12.5 mg PO BID [facility] Non-Formulary Medication (Fluticasone Propionate [Flonase]) 16 gm NS DAILY [place] Non-Formulary Medication (Fluticasone/Salmeterol [Advair 250-50 Diskus]) 2 each IH DAILY [facility] Non-Formulary Medication (Levalbuterol Tartrate [Xopenex Hfa]) 2 puff IH Q4HR PRN PRN Reason: Wheezing Non-Formulary Medication (Losartan [Cozaar]) 50 mg PO DAILY [facility] Non-Formulary Medication (Lutein/Minerals/Vit A,C & E [Ocuvite]) 1 tab PO DAILY [facility] Non-Formulary Medication (Montelukast [Singulair]) 4 mg CHEW BEDTIME [facility] Non-Formulary Medication (Simvastatin [Simvastatin]) 40 mg PO BEDTIME [facility] Non-Formulary Medication (Tamsulosin Hcl [Flomax]) 0.4 mg PO DAILY [facility] Non-Formulary Medication (Warfarin [Coumadin]) 5 mg PO DAILY [facility] Sodium Chloride (Saline Flush) 10 ml FLUSH ASDIRECTED PRN PRN Reason: Keep Vein Open Last Admin: 03/30/17 02:35 Dose: 10 ml Sodium Chloride (Saline Flush) 10 ml FLUSH ASDIRECTED PRN PRN Reason: Keep Vein Open Meds: Medications Generic Name Dose Route Start Last Admin Trade Name Freq PRN Reason Stop Dose Admin Hydromorphone HCl 1 mg 03/30/17 02:35 Dilaudid IVPUSH Q1H PRN Pain Non-Formulary Medication 3 ml 03/30/17 02:42 Albuterol/Ipratropium [Duoneb 3.0-0.5 Mg/3 Ml] IH Q4HR PRN Wheezing Non-Formulary Medication 12.5 mg 03/30/17 09:00 Carvedilol [Carvedilol] PO BID [facility]INGO Non-Formulary Medication 16 gm 03/30/17 09:00 Fluticasone Propionate [Flonase] NS DAILY [facility] Non-Formulary Medication 2 each 03/30/17 09:00 Fluticasone/Salmeterol [Advair 250-50 Diskus] IH DAILY [facility] Non-Formulary Medication 2 puff 03/30/17 02:42 Levalbuterol Tartrate [Xopenex Hfa] IH Q4HR PRN Wheezing Non-Formulary Medication 50 mg 03/30/17 09:00 Losartan [Cozaar] PO DAILY [facility] Non-Formulary Medication 1 tab 03/30/17 09:00 Lutein/Minerals/Vit A,C & E [Ocuvite] PO DAILY [facility] Non-Formulary Medication 4 mg 03/30/17 21:00 Montelukast [Singulair] CHEW BEDTIME [facility] Non-Formulary Medication 40 mg 03/30/17 21:00 Simvastatin [Simvastatin] PO BEDTIME [facility]ING[facility] Non-Formulary Medication 0.4 mg 03/30/17 09:00 Tamsulosin Hcl [Flomax] PO DAILY [facility] Non-Formulary Medication 5 mg 03/30/17 09:00 Warfarin [Coumadin] PO DAILY [place] Sodium Chloride 10 ml 03/30/17 02:16 03/30/17 02:35 Saline Flush FLUSH 10 ml ASDIRECTED PRN Administration Keep Vein Open Sodium Chloride 10 ml 03/30/17 02:32 Saline Flush FLUSH ASDIRECTED PRN Keep Vein Open - Re-Assessments/Exams Free Text/Narrative Re-Assessment/Exam: 03/30/17 02:00 We discussed the option of admitting the patient for pain control, possibly IV steroid treatment and obtaining an MRI as an inpatient which is much more efficient. Both the patient and his were in agreement with this plan because of their urgent feeling of the need for the MRI. I talked with Dr. David Anaya, on-call physician and he kindly agreed to come in and evaluate the patient to admit and then ultimately turn over to the hospitalist service tomorrow. Departure - Departure Time of Disposition: 02:53 Disposition: Admitted As Inpatient 64 Condition: Fair Clinical Impression: Pain in neck, Acute exacerbation of chronic low back pain - Discharge Information - My Orders Last 24 Hours: My Active Orders 03/30/17 02:16 Sodium Chloride 0.9% [Saline Flush] 10 ml FLUSH ASDIRECTED PRN Saline Lock Insert [OM.PC] Routine - Assessment/Plan Last 24 Hours: My Active Orders 03/30/17 02:16 Sodium Chloride 0.9% [Saline Flush] 10 ml FLUSH ASDIRECTED PRN Saline Lock Insert [OM.PC] Routine
[2017-03-30] MEDS ORDERED: Sodium Chloride 0.9% 10 ML Syringe FLUSH PRN ×2 (02:16→02:32)
[2017-03-30] MEDS ORDERED: Albuterol/Ipratropium 3.0-0.5 MG/3 ML Neb Soln INH PRN (02:42)
[2017-03-30] MEDS ORDERED: Levalbuterol Tartrate HFA 15 GM Inhaler INH PRN (02:42)
[2017-03-30] MEDS: HYDROmorphone 1 MG/ML Syringe IVPUSH PRN ×6 (03:31→10:48)
--- NOTE | 2017-03-30 03:33 | HP ---
CHIEF COMPLAINT: Severe neck and lumbar back pain. HISTORY OF PRESENT ILLNESS: A 71-year-old, who has had a lot of back trouble in the past about three-four years ago. Had an x-ray which showed significant arthritis in his lower back. He has been having for the last six weeks worsening back pain, and lately, he has been having severe pain in his neck also. He has been going to physical therapy, but they told him they would not work on him any more without an MRI because of the severe pain. He has been working with [facility]. Plan is to do an MRI and I think an order has been placed, but tonight, he was lying in bed and had severe pain in his neck and lower back. It took 20 minutes to get out of bed even after he took a Dilaudid. He came into the emergency room, was feeling better after the Dilaudid, sounds like it is worse when he lay's down. He has had ongoing problems with pain in his right foot and leg, which he has had a lot of problems with a fractured foot, which he had surgery which is a Work Comp injury and has arthritis in his right knee that he needs probably to have replaced. He had the left one done in the past. He has been taking Dilaudid, Tylenol with Codeine which does help a little bit, but lately has not been cutting the pain. He this year has had hiatal hernia surgery and had difficult hernia surgery in his groin, ended up developing a DVT in his right leg, which he is on anticoagulation now for. He has had no heart problems. Does have a history of hypertension, also has history of hyperlipidemia and asthma. CURRENT MEDICATIONS: DuoNeb p.r.n., carvedilol 12.5 mg b.i.d., Flonase nasal spray, two sprays in each nostril daily, Advair 250/50 b.i.d., Xopenex inhaler p.r.n., losartan 50 mg daily, lutein daily, Singulair 4 mg daily, simvastatin 40 mg at bedtime, Flomax 0.4 mg daily, warfarin 5 mg daily. ALLERGIES: EGG, PEANUT, TRAMADOL. SOCIAL HISTORY: Remote smoker. Quit 30 years ago and also quit alcohol at that time. FAMILY HISTORY: Noncontributory. REVIEW OF SYSTEMS: Denies headaches, vision changes, upper respiratory symptoms. No chest pain, but does get shortness of breath and his chest feels little bit tight with his asthma right now. No nausea, vomiting, diarrhea, or constipation. No urinary problems. He does have chronic swelling of his right foot which has been worse lately and has been having swelling in his knee on the right side. Denies any specific skin problems. No neurologic complaints other than his back and neck pain. PHYSICAL EXAMINATION: VITAL SIGNS: Weight 83.4 kg, temp 36.2, pulse 76, blood pressure 141/92, respirations 18, O2 saturation 97% on room air. GENERAL: The patient is alert and oriented x3, sitting up on the edge of the gurney. HEENT: Unremarkable. NECK: Fairly supple. It hurts when he moves. No masses, thyromegaly, JVD, or carotid bruits. He did have discomfort posteriorly in the paraspinal muscles. He has no specific muscle spasms or other deformity was identified. LUNGS: Clear. HEART: Regular without murmurs. ABDOMEN: Soft, nontender, no mass or organomegaly palpated. BACK: He did have really no tenderness or pain, deformity in the thoracic spine, but did have discomfort of the spinous process, paraspinal muscles in the lumbar spine, but no muscle spasm or other deformity was identified. EXTREMITIES: He did have swelling of his right foot and ankle. No pain in his calf. Did have swelling of his right knee. Does have some varicose veins. SKIN: Negative. NEURO: Cranial nerves II through XII are grossly intact. His right leg symptoms are difficult to tell if it is radicular or if it is from his other chronic problems. ASSESSMENT: Severe worsening neck and lumbar back pain. We will admit him under observation. Anticipate less than two midnight stay, IV Dilaudid. He seems to have tolerated the oral Dilaudid and we will see if we can get an MRI of the cervical and lumbar spine while he is in the hospital, transfer his care to the hospitalist service in the morning. OTHER MEDICAL PROBLEMS: As listed above. David Anaya MD /[id number]
[2017-03-30] MEDS ORDERED: Formoterol/Mometasone 200-5 MCG 8.8 GM Inhaler IH SCH (09:00)
[2017-03-30] MEDS: CARVEDILOL 12.5 MG PO SCH ×2 (10:43→20:40)
[2017-03-30] MEDS: Beta-Carotene (Vitamin A) w/Vitamin C & E plus Minerals Tab PO SCH (10:46)
[2017-03-30] MEDS: ADVAIR INH SCH ×2 (10:48→20:41)
[2017-03-30] MEDS: Enoxaparin 100 MG/1 ML Syringe SUBCUT SCH ×2 (10:49→22:13)
[2017-03-30] MEDS: Ondansetron 4 MG/2 ML SDV IVPUSH PRN ×2 (12:35→20:43)
--- NOTE | 2017-03-30 13:03 | MR ---
Lumbar Spine Comp wo Cont HISTORY: Severe pain. COMPARISON: None TECHNIQUE: The lumbar spine was imaged in the axial, coronal, and sagittal planes utilizing T1, T2, and STIR techniques. FINDINGS: The conus terminates in its anatomic location and is normal in appearance. The lumbar vert ebrae demonstrate normal alignment. No compression deformities are demonstrated. There is degenerati ve marrow endplate edema at L2/3. No destructive marrow signal changes are demonstrated. Evaluation of the disc spaces reveals the following findings: L1-L2: There is advanced degenerative disc space loss. There is a mild central disc bulge. There is no significant spinal or foraminal stenosis. L2-L3: There is a annular disc bulge. There is no spinal or foraminal stenosis. L3-L4: There is advanced disc space narrowing. There is a annular disc bulge. There is facet arthrop athy. There is moderate bilateral foraminal stenosis, right greater than left. There is no spinal st enosis. L4-L5: There is disc space loss. There is a mild disc bulge. There is facet hypertrophy. There is mo derate bilateral foraminal stenosis. L5-S1: There is disc space narrowing. There is a annular disc bulge. Facet arthropathy and bulging d isc contributes to severe left foraminal stenosis. There is mild narrowing on the right. There is no spinal stenosis. IMPRESSION: 1. Multilevel degenerative disc disease. There is disc space loss with disc bulges. There are no fin dings of spinal stenosis. 2. There are multiple sites of foraminal stenosis. The foraminal narrowing is most significant at th e left aspect of L5/S1. There is also bilateral moderate narrowing at L3/4 and L4/5.
--- NOTE | 2017-03-30 13:08 | MR ---
Cervical Spine Comp wo Cont HISTORY: Severe neck pain. COMPARISON: None TECHNIQUE: The cervical spine was imaged in the sagittal and axial planes utilizing T1, T2, STIR, an d gradient echo techniques. FINDINGS: Limited evaluation of the posterior fossa and brainstem demonstrate no abnormalities. Ther e is normal signal intensity throughout the visualized spinal cord. The vertebral bodies are normal in height. There is mild retrolisthesis at the C3/4 level. There is mild anterolisthesis at C4/5 and C5/6. No destructive marrow signal changes are demonstrated. Evaluation of the disc spaces reveals the following findings: The C1-C2 articulation demonstrates no abnormalities. C2-C3: There is no spinal or foraminal stenosis. C3-C4: There is retrolisthesis. There is central osteophytic disc complex. There is moderate spinal stenosis. The central canal measures 7 mm. Uncinate hypertrophy contributes to moderate bilateral fo raminal stenosis. C4-C5: There is anterior listhesis. There is facet hypertrophy. There is no significant spinal or fo raminal stenosis. C5-C6: Os. There is mild anterior listhesis. There is no significant spinal or foraminal stenosis. C6-C7: There is advanced disc space loss. There is mild central osteophytic disc. There is no signif icant spinal or foraminal stenosis. C7-T1: Within normal limits. IMPRESSION 1. Moderate central canal stenosis at C3/4. There is also moderate bilateral foraminal stenosis. 2. Additional degenerative findings as detailed above.
--- NOTE | 2017-03-30 14:12 | PCM.PN ---
- General Info Date of Service: 03/30/17 - Review of Systems General: Denies: Fever, Weakness, Chills Pulmonary: Reports: No Symptoms Cardiovascular: Reports: No Symptoms Gastrointestinal: Reports: No Symptoms Musculoskeletal: Reports: Neck Pain, Back Pain Systems Review Comment:: Mr. Hebert is a 71-year-old gentleman who was admitted early this morning with severe neck and lower back pain. He has been troubled with lower back pain over the past few weeks and intermittently has severe pain related to muscle spasm. Over the past few days is now developed neck pain bilaterally in the lateral posterior neck again associated with severe muscle spasms. MRI has been performed of the cervical and lumbar spine and shows several degenerative changes, there is moderate spinal stenosis and neural foraminal narrowing. He has no radicular features in the arms or legs. Lumbar spine also shows significant degenerative changes with disc space narrowing and neural foraminal narrowing. - Patient Data Vitals - Most Recent: Last Vital Signs Temp 97.0 F 03/30/17 12:26 Pulse 68 03/30/17 12:26 Resp 18 03/30/17 12:26 BP 123/94 H 03/30/17 12:26 Pulse Ox 97 03/30/17 12:26 Weight - Most Recent: 185 lb 0.014 oz I&O - Last 24 Hours: Intake & Output 03/29/17 03/30/17 03/30/17 22:59 06:59 14:59 Intake Total 480 Output Total 400 Balance 80 Lab Results Last 24 Hours: Laboratory Results - last 24 hr 03/30/17 03/30/17 03/30/17 Range/Units 04:15 04:15 04:20 WBC 8.0 (4.5-11.0) K/uL RBC 3.61 L (4.30-5.90) M/uL Hgb 11.1 L (12.0-15.0) g/dL Hct 34.7 L (40.0-54.0) % MCV 96 (80-98) fL MCH 31 (27-31) pg MCHC 32 (32-36) % Plt Count 229 (150-400) K/uL Neut % (Auto) 58 (36-66) % Lymph % (Auto) 22 L (24-44) % [place] % (Auto) 16 H (2-6) % Eos % (Auto) 3 (2-4) % Baso % (Auto) 1 (0-1) % PT 16.4 H (9.5-12.0) sec INR 1.51 H D (0.80-1.20) Sodium 141 (140-148) mmol/L Potassium 3.9 (3.6-5.2) mmol/L Chloride 106 (100-108) mmol/L Carbon Dioxide 31 (21-32) mmol/L Anion Gap 4.5 L (5.0-14.0) mmol/L BUN 10 (7-18) mg/dL Creatinine 1.0 (0.8-1.3) mg/dL Est Cr Clr Drug Dosing 69.78 mL/min Estimated GFR (MDRD) > 60 (>60) Glucose 91 (74-106) mg/dL Calcium 8.6 (8.5-10.1) mg/dL Total Bilirubin 0.7 (0.2-1.0) mg/dL AST 25 (15-37) U/L ALT 29 (12-78) U/L Alkaline Phosphatase 54 (46-116) U/L C-Reactive Protein 1.42 H (0.0-0.3) mg/dL Total Protein 6.3 L (6.4-8.2) g/dL Albumin 3.0 L (3.4-5.0) g/dL Globulin 3.3 (2.3-3.5) g/dL Albumin/Globulin Ratio 0.9 L (1.2-2.2) Med Orders - Current: Current Medications Albuterol/Ipratropium (Duoneb 3.0-0.5 Mg/3 Ml) 3 ml INH Q4H PRN PRN Reason: Wheezing Carvedilol (Coreg) 12.5 mg PO BID [facility] Last Admin: 03/30/17 10:43 Dose: 12.5 mg Enoxaparin Sodium (Lovenox) 90 mg SUBCUT Q12H [facility] Last Admin: 03/30/17 10:49 Dose: 90 mg Fluticasone Propionate (Flonase) 0 gm NASBOTH DAILY [facility] Hydromorphone HCl (Dilaudid) 1 mg IVPUSH Q1H PRN PRN Reason: Pain Last Admin: 03/30/17 10:48 Dose: 1 mg Levalbuterol HCl (Xopenex Hfa) 0 gm INH Q4H PRN PRN Reason: Wheezing Losartan Potassium (Cozaar) 50 mg PO DAILY [facility] Last Admin: 03/30/17 10:45 Dose: 50 mg Montelukast Sodium (Singulair) 4 mg CHEW BEDTIME [facility] Multivitamins/Minerals (Prosight) 1 tab PO DAILY [facility] Last Admin: 03/30/17 10:46 Dose: 1 tab Ondansetron HCl (Zofran) 4 mg IVPUSH Q4H PRN PRN Reason: Nausea/Vomiting Last Admin: 03/30/17 12:35 Dose: 4 mg Advair 500/50 (Ptom) 0 each INH BIDRT [facility] Last Admin: 03/30/17 10:48 Dose: 1 each Simvastain 40mg ( (Ptom)) 0 each PO BEDTIME [facility] Sodium Chloride (Saline Flush) 10 ml FLUSH ASDIRECTED PRN PRN Reason: Keep Vein Open Tamsulosin HCl (Flomax) 0.4 mg PO DAILY [facility] Last Admin: 03/30/17 10:47 Dose: 0.4 mg Warfarin Sodium (Coumadin) 5 mg PO DAILY@1300 [facility] Discontinued Medications Sodium Chloride (Saline Flush) 10 ml FLUSH ASDIRECTED PRN PRN Reason: Keep Vein Open Last Admin: 03/30/17 02:35 Dose: 10 ml - Exam Quality Assessment: DVT Prophylaxis General: Alert, Oriented, Cooperative, Moderate Distress Lungs: Clear to Auscultation, Normal Respiratory Effort Cardiovascular: Regular Rate, Regular Rhythm, No Murmurs GI/Abdominal Exam: Normal Bowel Sounds, Soft, Non-Tender, No Organomegaly, No Distention Back Exam: Decreased Range of Motion, Muscle Spasm, Paraspinal Tenderness Extremities: Normal Inspection, Normal Range of Motion, Non-Tender, No Pedal Edema, Normal Capillary Refill Skin: Warm, Dry, Intact Neurological: Normal Tone, Strength Equal Bilateral, Sensation Intact - Problem List Review Problem List Initiated/Reviewed/Updated: Yes - My Orders Last 24 Hours: My Active Orders 03/30/17 10:00 Enoxaparin [Lovenox] 90 mg SUBCUT Q12H 03/30/17 12:27 Ondansetron [Zofran] 4 mg IVPUSH Q4H PRN 03/30/17 14:04 HYDROmorphone [Dilaudid] 2 mg PO Q3H PRN LORazepam [Ativan] 0.5 mg PO Q4H PRN 03/30/17 14:05 PT Evaluation and Treatment [CONS] Routine - Plan Plan:: ASSESSMENT AND PLAN Cervical pain-chronic ache with intermittent spasms of pain that seemed to be related to muscle spasm. MRI shows degenerative changes with moderate spinal stenosis and neural foraminal narrowing. No symptoms of spinal cord or nerve root impingement. -Physical therapy consult -Pain medication as needed -Lorazepam as needed for muscle spasm Lumbar spine pain-MRI shows degenerative changes and disc space disease, no evidence of nerve root impingement or spinal stenosis. -Management as above -We'll plan for referral to chronic pain center in [place] Right leg deep vein thrombosis-INR is subtherapeutic -Therapeutic dosing of Lovenox -Continue warfarin therapy -Recheck INR in a.m. MAINTENANCE ISSUES -DVT prophylaxis;current therapy with Lovenox should provide adequate DVT prophylaxis -GI prophylaxis;not indicated -Terry catheter;not indicated -Nutrition;regular diet -Nicotinic dependence;not required CODE STATUS-full code ADMISSION STATUS-this patient will be admitted to observation status, expect no more than a one night hospital stay for evaluation and management of problems as outlined above. DISPOSITION-anticipate discharge to home after the hospital stay. PRIMARY CARE PROVIDER-Dr. Bowman
[2017-03-30] MEDS: Fluticasone Propionate Nasal Spray (PTOM) NASBOTH SCH (14:13)
[2017-03-30] MEDS: WARFARIN 5 MG PO SCH (14:13)
[2017-03-30] MEDS: LORazepam 0.5 MG Tab PO PRN ×2 (14:13→20:43)
[2017-03-30] MEDS ORDERED: Docusate Sodium 100 MG Cap PO PRN (14:18)
[2017-03-30] MEDS ORDERED: Ondansetron 4 MG/2 ML SDV IVPUSH ONE (15:30)
[2017-03-30] MEDS ORDERED: LORazepam 2 MG/ML MDV IVPUSH ONE (16:15)
[2017-03-30] MEDS: HYDROmorphone 2 MG Tab PO PRN ×2 (20:43→23:40)
[2017-03-30] MEDS ORDERED: SIMVASTATIN 40 MG PO SCH (21:00)
[2017-03-30] MEDS ORDERED: MONTELUKAST 4 MG CHEW SCH (21:00)
[2017-03-30] MEDS ORDERED: Simvastatin 20 MG Tab PO SCH (21:00)
[2017-03-31] MEDS: LORazepam 2 MG/ML MDV IVPUSH PRN ×2 (00:24→07:11)
--- NOTE | 2017-03-31 01:34 | PCM.SN ---
- Free Text/Narrative Note: time 2409 consult with ICU Nurse; Mr. Hebert is having back pain, anxiety and nausea, they have tried zofran, po pain medication. requesting Ativan a; back pain, anxiety, nausea p; Ativan 2 mg IV every 2 hours prn pain, anxiety and nausea. continue with present plan of care
[2017-03-31] MEDS: CARVEDILOL 12.5 MG PO SCH (10:14)
[2017-03-31] MEDS: Enoxaparin 100 MG/1 ML Syringe SUBCUT SCH (10:17)
[2017-03-31] MEDS: Beta-Carotene (Vitamin A) w/Vitamin C & E plus Minerals Tab PO SCH (10:17)
[2017-03-31] MEDS: Ondansetron 4 MG/2 ML SDV IVPUSH PRN ×2 (10:37→16:05)
[2017-03-31] MEDS ORDERED: Lactated Ringers 1,000 ML IV SCH (10:45)
[2017-03-31] MEDS ORDERED: Doxycycline 100 MG in Sodium Chloride 0.9% 100 ML IV SCH (11:00)
--- NOTE | 2017-03-31 11:18 | CR ---
Chest 1V Frontal FINDINGS: There is mild cardiac enlargement. The vascular structures are within normal limits.. No i nfiltrates or effusions are demonstrated. The skeletal structures are unremarkable. IMPRESSION: 1. No acute findings.
--- NOTE | 2017-03-31 12:59 | CT ---
Head wo Cont HISTORY: Headache COMPARISON: None TECHNIQUE: Noncontrast enhanced axial cuts were obtained of the brain. Total DLP: 753. FINDINGS:There is no cerebral or subdural hemorrhage. There is no mass effect or edema. The ventricl es and CSF spaces are appropriate for age. No space occupying lesions are demonstrated. The orbital structures are unremarkable. The sinuses demonstrate normal aeration. IMPRESSION: Negative exam.
[2017-03-31] MEDS: ADVAIR INH SCH (13:14)
[2017-03-31] MEDS: Fluticasone Propionate Nasal Spray (PTOM) NASBOTH SCH (13:14)
[2017-03-31] MEDS: Lactated Ringers 1,000 ML IV SCH ×2 (13:48→15:54)
[2017-03-31] MEDS: Morphine 2 MG/ML Syringe IVPUSH PRN ×3 (13:55→18:08)
[2017-03-31] MEDS: WARFARIN 5 MG PO SCH (14:05)
[2017-03-31] MEDS ORDERED: Pantoprazole 40 MG Vial IVPUSH SCH (16:00)
--- NOTE | 2017-03-31 16:25 | PCM.DCSUM1 ---
Discharge Summary - Hospital Course Brief History: Mr. Hebert is a 71-year-old gentleman who was admitted to observation status for further evaluation and management of new severe cervical pain. - Discharge Data Discharge Date: 03/31/17 Discharge Disposition: DC/Tfer to Acute Hospital 02 Condition: Serious - Discharge Diagnosis/Problem(s) (1) Severe headache SNOMED Code(s): 45942957 ICD Code: R51 - HEADACHE Status: Acute Current Visit: Yes (2) Nausea & vomiting SNOMED Code(s): 05196260 ICD Code: R11.2 - NAUSEA WITH VOMITING, UNSPECIFIED Status: Acute Current Visit: Yes (3) DVT (deep venous thrombosis) SNOMED Code(s): 904779812 ICD Code: I82.409 - ACUTE EMBOLISM AND THOMBOS UNSP DEEP VN UNSP LOWER EXTREMITY Status: Acute Current Visit: Yes (4) Pain in neck SNOMED Code(s): 44495219 ICD Code: M54.2 - CERVICALGIA Status: Acute Current Visit: Yes (5) Mild persistent asthma SNOMED Code(s): 077585564 ICD Code: J45.30 - MILD PERSISTENT ASTHMA, UNCOMPLICATED Status: Chronic Current Visit: No Qualifiers: Asthma complication type: uncomplicated Qualified Code(s): J45.30 - Mild persistent asthma, uncomplicated - Patient Summary/Data Consults: Consultations 03/30/17 14:05 PT Evaluation and Treatment [CONS] Routine Please Evaluate and Treat. PT Reason for Consult: Ambulation This query below is only for informational purposes and is not editable. Admission Diagnosis/Problem: Back pain Hospital Course: Mr. Hebert is a 71-year-old gentleman who presented to the emergency department with a 2 to three-day history of new pain in his neck. The pain and progressed the point that it was very severe and he was unable to sleep because the pain. He described a chronic ache in the posterior aspect of the neck would become more severe with turning his head [id number]. On admission he was given pain medication as needed and an MRI was ordered for the following morning. When seen for evaluation on the morning after admission he seemed to have significant muscle spasm in the neck associated with movement. MRI was obtained of the cervical spine and showed evidence of moderate spinal stenosis with areas of neural foraminal narrowing. He denied any radicular features, weakness or sensory changes. Shortly after the MRI was obtained he began to develop an intense headache associated with intractable nausea and vomiting. He was treated with pain medication and antiemetic therapy but symptoms persisted. Reevaluation with laboratory studies on the day of transfer showed a normal white blood cell count, a CRP of 2.5, and a sedimentation rate of 41. He did have mild to moderate hypertension but was otherwise hemodynamically stable and remained afebrile throughout his hospitalization at this facility. Other labs were unremarkable, CT scan of the head without contrast was also unremarkable. He does have a history of right leg swelling which developed approximately 6 weeks ago. At that time venous Doppler studies documented a large deep vein thrombosis involving the right leg. He was treated with Lovenox and started on oral anticoagulation with warfarin. Prior to this admission his most recent INR in the clinic had been within therapeutic range. On admission to this facility his INR was found to be subtherapeutic at 1.5. He was started on a therapeutic dose of Lovenox 90 mg subcutaneously every 12 hours. On the day of transfer his INR had come up to 1.86. Because of his anticoagulation with warfarin and Lovenox was felt that would not be safe to proceed with lumbar puncture for further evaluation of his severe headache. I discussed his clinical course and findings with the neurologist on-call at [facility] in [facility]. He will be transferred there via [facility] ambulance for further evaluation and management of his current symptoms. - Patient Instructions Diet: NPO Activity: As Tolerated Other/Special Instructions: Patient will be transferred to [facility] in [facility] via [facility] ambulance, for further subspecialty evaluation and management - Discharge Plan Home Medications: Home Meds Carvedilol 12.5 mg PO BID 06/17/13 [History] Simvastatin 40 mg PO BEDTIME 06/17/13 [History] Lutein/Minerals/Vit A,C & E [Ocuvite] 1 tab PO DAILY 08/04/13 [History] Losartan [Cozaar] 50 mg PO DAILY 01/08/15 [History] Tamsulosin HCl [Flomax] 0.4 mg PO DAILY 12/03/16 [History] Levalbuterol Tartrate [Xopenex HFA] 2 puff IH Q4HR PRN 12/21/16 [History] Albuterol/Ipratropium [DuoNeb 3.0-0.5 MG/3 ML] 3 ml IH Q4HR PRN 03/30/17 [ History] Fluticasone Propionate [Flonase] 2 spray NASBOTH DAILY 03/30/17 [History] Fluticasone/Salmeterol [Advair Diskus 500-50] 1 puff INH BID 03/30/17 [History] Montelukast [Singulair] 4 mg CHEW BEDTIME 03/30/17 [History] Warfarin [Coumadin] 5 mg PO DAILY 03/30/17 [History] Enoxaparin [Lovenox] 90 mg SUBCUT Q12H syringe 03/31/17 [Rx] Lactated Ringers [Ringers, Lactated] 125 ml IV ASDIRECTED #0 bag 03/31/17 [Rx] Morphine 2 - 4 mg IVPUSH Q1H PRN #0 syringe 03/31/17 [Rx] Ondansetron [Zofran] 4 mg IVPUSH Q4H PRN #0 vial 03/31/17 [Rx] Referrals: Ananda Bowman MD [Primary Care Provider] - - Patient Data Vitals - Most Recent: Last Vital Signs Temp 97.1 F 03/31/17 14:02 Pulse 83 03/31/17 14:02 Resp 15 03/31/17 14:02 BP 149/102 H 03/31/17 14:02 Pulse Ox 99 03/31/17 14:02 Weight - Most Recent: 185 lb 0.014 oz Lab Results - Last 24 hrs: Laboratory Results - last 24 hr 03/31/17 03/31/17 03/31/17 Range/Units 10:57 10:57 10:58 WBC 8.8 (4.5-11.0) K/uL RBC 4.13 L (4.30-5.90) M/uL Hgb 12.5 (12.0-15.0) g/dL Hct 39.0 L (40.0-54.0) % MCV 94 (80-98) fL MCH 30 (27-31) pg MCHC 32 (32-36) % Plt Count 256 (150-400) K/uL Neut % (Auto) 74 H (36-66) % Lymph % (Auto) 13 L (24-44) % Pepin % (Auto) 12 H (2-6) % Eos % (Auto) 1 L (2-4) % Baso % (Auto) 0 (0-1) % ESR 41 H (0-20) mm/hr PT 20.1 H (9.5-12.0) sec INR 1.83 H (0.80-1.20) Sodium 138 L (140-148) mmol/L Potassium 3.8 (3.6-5.2) mmol/L Chloride 104 (100-108) mmol/L Carbon Dioxide 28 (21-32) mmol/L Anion Gap 9.8 (5.0-14.0) mmol/L BUN 11 (7-18) mg/dL Creatinine 0.8 (0.8-1.3) mg/dL Est Cr Clr Drug Dosing 87.23 mL/min Estimated GFR (MDRD) > 60 (>60) Glucose 103 (74-106) mg/dL Calcium 8.8 (8.5-10.1) mg/dL Total Bilirubin 0.7 (0.2-1.0) mg/dL AST 23 (15-37) U/L ALT 31 (12-78) U/L Alkaline Phosphatase 61 (46-116) U/L C-Reactive Protein 2.30 H (0.0-0.3) mg/dL Total Protein 6.8 (6.4-8.2) g/dL Albumin 2.9 L (3.4-5.0) g/dL Globulin 3.9 H (2.3-3.5) g/dL Albumin/Globulin Ratio 0.7 L (1.2-2.2) Urine Color Urine Appearance Urine pH (4.5-8.0) Ur Specific [place] (1.008-1.030) Urine Protein (NEGATIVE) mg/dL Urine Glucose (UA) (NEGATIVE) mg/dL Urine Ketones (NEGATIVE) mg/dL Urine Occult Blood (NEGATIVE) Urine Nitrite (NEGAITVE) Urine Bilirubin (NEGATIVE) Urine Urobilinogen (NORMAL) mg/dL Ur Leukocyte Esterase (NEGATIVE) Urine RBC (0-5) Urine WBC (0-5) Ur Epithelial Cells Amorphous Sediment Urine Bacteria Urine Mucus 03/31/17 Range/Units 12:57 WBC (4.5-11.0) K/uL RBC (4.30-5.90) M/uL Hgb (12.0-15.0) g/dL Hct (40.0-54.0) % MCV (80-98) fL MCH (27-31) pg MCHC (32-36) % Plt Count (150-400) K/uL Neut % (Auto) (36-66) % Lymph % (Auto) (24-44) % Pepin % (Auto) (2-6) % Eos % (Auto) (2-4) % Baso % (Auto) (0-1) % ESR (0-20) mm/hr PT (9.5-12.0) sec INR (0.80-1.20) Sodium (140-148) mmol/L Potassium (3.6-5.2) mmol/L Chloride (100-108) mmol/L Carbon Dioxide (21-32) mmol/L Anion Gap (5.0-14.0) mmol/L BUN (7-18) mg/dL Creatinine (0.8-1.3) mg/dL Est Cr Clr Drug Dosing mL/min Estimated GFR (MDRD) (>60) Glucose (74-106) mg/dL Calcium (8.5-10.1) mg/dL Total Bilirubin (0.2-1.0) mg/dL AST (15-37) U/L ALT (12-78) U/L Alkaline Phosphatase (46-116) U/L C-Reactive Protein (0.0-0.3) mg/dL Total Protein (6.4-8.2) g/dL Albumin (3.4-5.0) g/dL Globulin (2.3-3.5) g/dL Albumin/Globulin Ratio (1.2-2.2) Urine Color Yellow Urine Appearance Slightly cloudy Urine pH 6.0 (4.5-8.0) Ur Specific [place] 1.020 (1.008-1.030) Urine Protein Negative (NEGATIVE) mg/dL Urine Glucose (UA) Normal (NEGATIVE) mg/dL Urine Ketones 15 H (NEGATIVE) mg/dL Urine Occult Blood Negative (NEGATIVE) Urine Nitrite Negative (NEGAITVE) Urine Bilirubin Negative (NEGATIVE) Urine Urobilinogen 1 (NORMAL) mg/dL Ur Leukocyte Esterase Negative (NEGATIVE) Urine RBC 0-5 (0-5) Urine WBC 0-5 (0-5) Ur Epithelial Cells Not seen Amorphous Sediment Moderate Urine Bacteria Rare Urine Mucus Moderate Med Orders - Current: Current Medications Albuterol/Ipratropium (Duoneb 3.0-0.5 Mg/3 Ml) 3 ml INH Q4H PRN PRN Reason: Wheezing Carvedilol (Coreg) 12.5 mg PO BID [facility] Last Admin: 03/31/17 10:14 Dose: 12.5 mg Docusate Sodium (Colace) 100 mg PO BID PRN PRN Reason: Constipation Last Admin: 03/30/17 20:43 Dose: 100 mg Enoxaparin Sodium (Lovenox) 90 mg SUBCUT Q12H [facility] Last Admin: 03/31/17 10:17 Dose: 90 mg Fluticasone Propionate (Flonase) 0 gm NASBOTH DAILY [facility] Last Admin: 03/31/17 13:14 Dose: Not Given Hydromorphone HCl (Dilaudid) 2 mg PO Q3H PRN PRN Reason: Pain Last Admin: 03/30/17 23:40 Dose: 2 mg Lactated Ringer's (Ringers, Lactated) 1,000 mls @ 125 mls/hr IV ASDIRECTED [facility] Last Admin: 03/31/17 15:54 Dose: 125 mls/hr Levalbuterol HCl (Xopenex Hfa) 0 gm INH Q4H PRN PRN Reason: Wheezing Lorazepam (Ativan) 0.5 mg PO Q4H PRN PRN Reason: Other Last Admin: 03/30/17 20:43 Dose: 0.5 mg Lorazepam (Ativan) 2 mg IVPUSH Q2H PRN PRN Reason: Nausea Last Admin: 03/31/17 07:11 Dose: 2 mg Losartan Potassium (Cozaar) 50 mg PO DAILY [facility] Last Admin: 03/31/17 10:16 Dose: 50 mg Montelukast Sodium (Singulair) 4 mg CHEW BEDTIME [facility] Last Admin: 03/30/17 20:42 Dose: 4 mg Morphine Sulfate (Morphine) 2 - 4 mg IVPUSH Q1H PRN PRN Reason: Pain Last Admin: 03/31/17 16:05 Dose: 2 mg Multivitamins/Minerals (Prosight) 1 tab PO DAILY [facility] Last Admin: 03/31/17 10:17 Dose: 1 tab Ondansetron HCl (Zofran) 4 mg IVPUSH Q4H PRN PRN Reason: Nausea/Vomiting Last Admin: 03/31/17 16:05 Dose: 4 mg Pantoprazole Sodium (Protonix Iv) 40 mg IVPUSH Q12H [facility] Last Admin: 03/31/17 15:53 Dose: 40 mg Advair 500/50 (Ptom) 0 each INH BIDRT [facility] Last Admin: 03/31/17 13:14 Dose: Not Given Simvastain 40mg ( (Ptom)) 0 each PO BEDTIME [facility] Last Admin: 03/30/17 20:42 Dose: 1 each Sodium Chloride (Saline Flush) 10 ml FLUSH ASDIRECTED PRN PRN Reason: Keep Vein Open Tamsulosin HCl (Flomax) 0.4 mg PO DAILY [facility] Last Admin: 03/31/17 10:15 Dose: 0.4 mg Warfarin Sodium (Coumadin) 5 mg PO DAILY@1300 [facility] Last Admin: 03/31/17 14:05 Dose: 5 mg Discontinued Medications Hydromorphone HCl (Dilaudid) 1 mg IVPUSH Q1H PRN PRN Reason: Pain Last Admin: 03/30/17 10:48 Dose: 1 mg Lactated Ringer's (Ringers, Lactated) 1,000 mls @ 500 mls/hr IV ASDIRECTED [facility] Stop: 03/31/17 14:46 Last Admin: 03/31/17 11:39 Dose: 500 mls/hr Doxycycline Hyclate 100 mg/ (Sodium Chloride) 100 mls @ 100 mls/hr IV Q12H [facility] Last Admin: 03/31/17 11:38 Dose: 100 mls/hr Lorazepam (Ativan) 0.5 mg IVPUSH ONETIME ONE Stop: 03/30/17 16:16 Last Admin: 03/30/17 16:29 Dose: 0.5 mg Ondansetron HCl (Zofran) 4 mg IVPUSH ONETIME ONE Stop: 03/30/17 15:31 Last Admin: 03/30/17 15:00 Dose: 4 mg Sodium Chloride (Saline Flush) 10 ml FLUSH ASDIRECTED PRN PRN Reason: Keep Vein Open Last Admin: 03/30/17 02:35 Dose: 10 ml *Q Meaningful Use (DIS) - VTE *Q VTE Criteria *Q: - Stroke *Q Stroke Criteria *Q: - AMI *Q AMI Criteria *Q:
[2017-03-31 16:43] VITALS: BP 154/104
[2017-03-31] MEDS ORDERED: Simvastatin 20 MG Tab PO SCH (21:00)
== END 2017-03-31 18:16 ==
LOC: JP.ED 00:53 → JP.ICU 02:32
PROVIDERS: ADMIT Family Medicine; ATTEND Hospitalist
DX: R51 Headache (principal); R11.2 Nausea with vomiting, unspecified; I82.409 Acute embolism and thrombosis of unspecified deep veins of unspecified lower extremity; M54.2 Cervicalgia; J45.30 Mild persistent asthma, uncomplicated; Z79.01 Long term (current) use of anticoagulants; Z79.899 Other long term (current) drug therapy; Z91.010 Allergy to peanuts; Z91.012 Allergy to eggs; Z88.8 Allergy status to other drugs, medicaments and biological substances; Z87.891 Personal history of nicotine dependence
CPT/HCPCS: 36415; 70450; 71010; 72141; 72148; 80053; 81001; 85025; 85610; 85651; 86140; 86666; 87040; 87476; 96361; 96365; 96372; 96375; 96376; 99285; A9270; C9113; G0378; J1170; J1650; J2060; J2270; J2405; J7030; J7050; J7120; 99217; 99219; 99284

== ENCOUNTER 2017-05-03 07:19 | Day surgery (SDC) | payer MEDICARE, BC ==
[~2017-05-03 07:19] MED LIST changes: -Albuterol/Ipratropium 3.0-0.5 MG/3 ML Neb Soln NEB ONE; +Bupivacaine 0.5%/EPINEPHrine 1:200,000 50 ML MDV ONE; +Meropenem 500 MG SDV ONE; -cefOXitin 2 GM in Sodium Chloride 0.9% 50 ML IV ONE
[2017-05-03] MEDS: Dextrose 5%-Lactated Ringers 1,000 ML IV SCH ×3 (08:24→22:51)
[2017-05-03] MEDS ORDERED: Propofol 200 MG/20 ML SDV ONE (08:36)
[2017-05-03] MEDS ORDERED: Glycopyrrolate 0.2 MG/ML 5 ML MDV ONE (08:36)
[2017-05-03] MEDS ORDERED: Succinylcholine 200 MG/10 ML MDV ONE (08:36)
[2017-05-03] MEDS ORDERED: Rocuronium 50 MG/5 ML Vial ONE (08:36)
[2017-05-03] MEDS ORDERED: Dexamethasone 4 MG/ML SDV ONE (08:36)
[2017-05-03] MEDS ORDERED: Ondansetron 4 MG/2 ML SDV ONE (08:36)
[2017-05-03] MEDS ORDERED: ceFAZolin 2 GM in Sodium Chloride 0.9% 50 ML IV ONE (09:00)
[2017-05-03] MEDS ORDERED: Albuterol/Ipratropium 3.0-0.5 MG/3 ML Neb Soln NEB ONE (09:00)
[2017-05-03] MEDS ORDERED: Etomidate 2 MG/ML 10 ML SDV ONE (09:29)
[2017-05-03] MEDS ORDERED: Lidocaine 1% with EPINEPHrine 1:100,000 50 ML MDV ONE (09:38)
[2017-05-03] MEDS ORDERED: Bupivacaine 0.5% 50 ML MDV ONE (09:38)
[2017-05-03] MEDS ORDERED: HYDROmorphone/Normal Saline 15 MG/30 ML PCA IV PRN (09:49)
[2017-05-03] MEDS ORDERED: Naloxone 0.4 MG/ML SDV IV PRN (09:50)
[2017-05-03] MEDS ORDERED: Cyclobenzaprine 10 MG Tab PO PRN (12:46)
[2017-05-03] MEDS ORDERED: Albuterol/Ipratropium 3.0-0.5 MG/3 ML Neb Soln INH PRN (12:47)
[2017-05-03] MEDS ORDERED: Ondansetron 4 MG/2 ML SDV IVPUSH PRN (12:47)
[2017-05-03] MEDS ORDERED: Warfarin 2.5 MG, Warfarin 5 MG PO ONE ×2 (14:00)
[2017-05-03] MEDS: Docusate Sodium 100 MG Cap PO SCH (15:19)
[2017-05-03] MEDS: Albuterol/Ipratropium 3.0-0.5 MG/3 ML Neb Soln INH SCH ×2 (17:25→20:20)
[2017-05-03] MEDS: ceFAZolin 2 GM in Sodium Chloride 0.9% 50 ML IV SCH (17:25)
[2017-05-03] MEDS: Acetaminophen/oxyCODONE 325-5 MG Tab PO PRN ×2 (17:28→22:43)
[2017-05-03] MEDS ORDERED: Tamsulosin 0.4 MG Cap.ER PO SCH (21:00)
[2017-05-03] MEDS ORDERED: SINGULAIR 4 MG PO SCH (21:00)
[2017-05-03] MEDS: Carvedilol 12.5 MG Tab PO SCH (21:20)
[2017-05-03] MEDS: ADVAIR INH SCH (21:24)
[2017-05-04] MEDS: ceFAZolin 2 GM in Sodium Chloride 0.9% 50 ML IV SCH ×2 (00:02→07:55)
[2017-05-04] MEDS: Acetaminophen/oxyCODONE 325-5 MG Tab PO PRN (03:03)
[2017-05-04] MEDS: Albuterol/Ipratropium 3.0-0.5 MG/3 ML Neb Soln INH SCH (07:56)
[2017-05-04] MEDS: ADVAIR INH SCH (07:56)
[2017-05-04 08:14] VITALS: BP 120/70
[2017-05-04] MEDS ORDERED: Losartan 50 MG Tab PO SCH (09:00)
[2017-05-04] MEDS ORDERED: Polyethylene Glycol 3350 Powder 17 GM Packet PO ONE (09:00)
[2017-05-04] MEDS ORDERED: Warfarin 2.5 MG, Warfarin 5 MG PO ONE ×2 (10:00)
[2017-05-04] MEDS: Docusate Sodium 100 MG Cap PO SCH (10:11)
[2017-05-04] MEDS: Carvedilol 12.5 MG Tab PO SCH (10:12)
--- NOTE | 2017-05-06 09:50 | DISCH ---
FINAL DIAGNOSIS: Recurrent incarcerated left inguinal hernia. SECONDARY DIAGNOSES: 1. History of deep vein thrombosis. 2. History of hyperlipidemia. 3. Mild congestive heart failure. 4. History of gastroesophageal reflux disease, status post Lalitha fundoplication. 5. Hypertension. 6. Obstructive sleep apnea, on CPAP. 7. Chronic neck pain and sciatica. OPERATIVE PROCEDURE: On 05/03/2017, open repair of recurrent incarcerated left inguinal hernia with mesh. HOSPITAL COURSE: This 71-year-old male is presenting with painful incarcerated recurrent hernia. This was repaired on the date of admission with mesh plug technique. Postoperatively, this patient has done reasonably well, except for some discomfort at the incision site, as one would expect. He has been switched over to Percocet overnight and will be discharged home with Percocet 5/325 mg 1 to 2 tabs q.4 hours p.r.n. pain #50, along with ibuprofen to be taken p.r.n. Previously, he has had problems with constipation following surgery, and we will be quite aggressive with that, so he is not straining the hernia repair, and he will be resuming his usual medications. We will give Lovenox today, as well as Coumadin at slightly higher than the baseline dose. He has 5 more Lovenox to take beginning tomorrow, and he has been instructed to finish those off, and he also will be seen in the Coumadin clinic on in 48 hours, and they will adjust his Coumadin dosing at that time as necessary. DISCHARGE MEDICATION: Include Lovenox and Coumadin as noted above, and Percocet 5/325 mg 1 to 2 tabs q.4 hours p.r.n. pain #50, ibuprofen 600 mg q.i.d. p.r.n., senna plus two tablets p.o. daily x2 months and then p.r.n., MiraLAX 85 grams in 20 ounces of Gatorade daily x2 weeks and then daily p.r.n. Followup with Dr. Eagle will be at [facility] on 05/12/2017.
--- NOTE | 2017-05-09 10:33 | OR ---
DATE OF PROCEDURE: 05/03/2017 PREOPERATIVE DIAGNOSIS: Recurrent incarcerated left inguinal hernia. POSTOPERATIVE DIAGNOSIS: Recurrent incarcerated left inguinal hernia. OPERATIVE PROCEDURE: Open repair of recurrent incarcerated left inguinal hernia with mesh- plug technique ([id number]). ANESTHESIA: General. INDICATION FOR PROCEDURE: This is a 71-year-old male presenting with recurrence of a recently repaired multiply recurrent left inguinal hernia. The plan is to proceed with repair of this. We initially were contemplating doing this laparoscopically, but there appeared to be quite a bit in the way of dense inflammation and incarceration of the hernia at this point making safe reduction from the laparoscopic approach somewhat problematic. Given this, an open approach would be once again undertaken. Potential risks including bleeding, infection, injury to underlying viscera, possible recurrence of the hernia once again were all reviewed, and the patient wishes to proceed. DETAILS OF PROCEDURE: The patient was taken to the operating room and placed in a supine position. After general endotracheal anesthesia was induced, the abdomen and groin areas were prepped and draped. The previous left inguinal incision was then made and carried down through the skin and subcutaneous tissue, and through the external oblique aponeurosis. The cord structures were able to be reflected downward. The patient did have intact mesh directly posterior to the cord structures. The hernia appeared to have recurred going more or less anterior to the previous mesh, downward toward the area of the pubic tubercle. This area will be initially dissected free and returned back into the peritoneal cavity. An extra large mesh plug was then selected. This was initially fixed to the pubic tubercle and medial aspect of Doni's ligament with titanium tacking screws; the underside of the conjoint tendon medially, superiorly, and laterally with horizontal mattress sutures of 0 Vicryl stitch. Once these were in place, the conjoint tendon was then once again sutured to the beginning of the pubic tubercle to that point, and the exposed area of the Doni's ligament with a running #1 Vicryl stitch as well. At this point, the repair appeared to be reasonably completed. The external oblique aponeurosis was then approximated with some 3-0 Vicryl stitch, and the skin with a 4-0 Vicryl subcuticular stitch. Dressing was applied. The patient was taken to the recovery room in a satisfactory condition. Dagoberto Eagle MD /[id number]
== END 2017-05-04 10:30 | disposition home or self-care (01) ==
LOC: JP.SDS 07:19 → JP.MS 10:45 → JP.SDS 05-04 10:30
PROVIDERS: ATTEND Surgery
DX: K40.31 Unilateral inguinal hernia, with obstruction, without gangrene, recurrent (principal); E78.5 Hyperlipidemia, unspecified; J45.40 Moderate persistent asthma, uncomplicated; I10 Essential (primary) hypertension; J44.9 Chronic obstructive pulmonary disease, unspecified; Z88.5 Allergy status to narcotic agent; Z91.012 Allergy to eggs; Z91.010 Allergy to peanuts; Z79.899 Other long term (current) drug therapy; Z98.890 Other specified postprocedural states
CPT/HCPCS: 36415; 49521; 80048; 83735; 84100; 85027; 85610; 94762; A9270; C1781; J0330; J0690; J1100; J1170; J1650; J2405; J3010; J7042; J7050; J7620; J2185; J2704

== ENCOUNTER 2019-08-07 05:21 | Inpatient (IN) | payer MEDICARE ==
[2019-08-07] MEDS: Nozin Nasal Sanitizer NASBOTH SCH ×2 (05:49→21:53)
[2019-08-07] MEDS ORDERED: Povidone-Iodine 10% Soln 118.25 ML Bottle ONE (06:31)
[2019-08-07] MEDS ORDERED: Lactated Ringers 1,000 ML IV SCH (07:00)
[2019-08-07] MEDS ORDERED: fentaNYL 100 MCG/2 ML SDV ONE ×3 (07:26→08:09)
[2019-08-07] MEDS ORDERED: Midazolam 1 MG/ML 2 ML SDV ONE ×3 (07:26→08:09)
[2019-08-07] MEDS ORDERED: ceFAZolin 2 GM in Premix Bag 1 BAG IV ONE (07:30)
[2019-08-07] MEDS ORDERED: ceFAZolin 2 GM in Sodium Chloride 0.9% 50 ML IV ONE (07:30)
[2019-08-07] MEDS ORDERED: Lactated Ringers 1,000 ML ONE (08:57)
[2019-08-07] MEDS ORDERED: Magnesium Hydroxide 400 MG/5 ML Susp 30 ML Cup PO PRN (09:30)
[2019-08-07] MEDS ORDERED: Acetaminophen 325 MG Tab PO PRN (09:30)
[2019-08-07] MEDS ORDERED: Acetaminophen/HYDROcodone 325-5 MG Tab PO PRN (09:30)
[2019-08-07] MEDS ORDERED: Albuterol/Ipratropium 3.0-0.5 MG/3 ML Neb Soln INH PRN (09:39)
[2019-08-07] MEDS ORDERED: Albuterol 8 GM Inhaler INH PRN (09:39)
--- NOTE | 2019-08-07 10:23 | CR ---
Knee 1V or 2V Rt: 08/07/2019 9:46 AM INDICATION: post op right total knee COMPARISON: 02/28/2019. FINDINGS/IMPRESSION: Interval changes of right total knee arthroplasty are present without apparent hardware complication or periprosthetic fracture. Remote patellar fracture again noted. Expected postsurgical changes are present, including subcutaneous and intra-articular air.
[2019-08-07] MEDS: Acetaminophen/oxyCODONE 325-5 MG Tab PO PRN ×3 (12:23→20:28)
[2019-08-07] MEDS: Morphine 2 MG/ML Syringe IVPUSH PRN ×6 (12:37→21:47)
[2019-08-07] MEDS: Ketorolac 30 MG/ML SDV IVPUSH SCH ×2 (13:27→21:55)
[2019-08-07] MEDS: ceFAZolin 1 GM in Premix Bag 1 BAG IV SCH ×2 (15:06→21:56)
[2019-08-07] MEDS: Pantoprazole 40 MG Tab.CR PO SCH (16:33)
[2019-08-07] MEDS: Sodium Chloride 0.9% 1,000 ML IV SCH (16:55)
[2019-08-07] MEDS: Ondansetron 4 MG/2 ML SDV IVPUSH PRN (20:35)
[2019-08-07] MEDS ORDERED: SACUBITRIL PO SCH (21:00)
[2019-08-07] MEDS ORDERED: Non-Formulary Medication 1 Each (Fluticasone/Salmeterol [Advair 250-50 Diskus] 1 PUFF) INH SCH (21:00)
[2019-08-07] MEDS ORDERED: [UNRECOGNIZED DRUG - OTHER] PO SCH (21:00)
[2019-08-07] MEDS ORDERED: VALSARTAN PO SCH (21:00)
[2019-08-07] MEDS ORDERED: Non-Formulary Medication 1 Each (Simvastatin [Simvastatin] 40 MG) PO SCH (21:00)
[2019-08-07] MEDS: ADVAIR INH SCH (21:53)
[2019-08-07] MEDS: Docusate Sodium 100 MG Cap PO SCH (21:53)
[2019-08-07] MEDS: ENTRESTO PO SCH (21:54)
[2019-08-07] MEDS: Simvastatin 20 MG Tab PO SCH (21:55)
[2019-08-08] MEDS: Acetaminophen/oxyCODONE 325-5 MG Tab PO PRN ×3 (01:06→20:10)
[2019-08-08] MEDS: Sodium Chloride 0.9% 1,000 ML IV SCH ×2 (01:07→18:12)
[2019-08-08] MEDS: Ketorolac 30 MG/ML SDV IVPUSH SCH ×3 (05:27→21:35)
[2019-08-08] MEDS: ceFAZolin 1 GM in Premix Bag 1 BAG IV SCH ×2 (05:32→16:52)
[2019-08-08] MEDS: ADVAIR INH SCH ×2 (07:23→21:31)
[2019-08-08] MEDS: Pantoprazole 40 MG Tab.CR PO SCH ×2 (07:39→15:32)
[2019-08-08] MEDS ORDERED: PAROXETINE 10 MG PO SCH (09:00)
[2019-08-08] MEDS: Docusate Sodium 100 MG Cap PO SCH ×2 (09:31→21:32)
[2019-08-08] MEDS: Enoxaparin 30 MG/0.3 ML Syringe SUBCUT SCH (09:32)
[2019-08-08] MEDS: Fluticasone Propionate Nasal Spray 16 GM Bottle NASBOTH SCH (09:32)
[2019-08-08] MEDS: Tamsulosin 0.4 MG Cap.ER PO SCH (09:32)
[2019-08-08] MEDS: Furosemide 20 MG Tab PO SCH (09:32)
[2019-08-08] MEDS: PARoxetine 20 MG Tab PO SCH (09:33)
[2019-08-08] MEDS: ENTRESTO PO SCH ×2 (09:33→21:32)
[2019-08-08] MEDS: Metoprolol Succinate 50 MG Tab.ER PO SCH (09:34)
[2019-08-08] MEDS: LUTEIN 10 MG PO SCH (09:41)
[2019-08-08] MEDS: Ondansetron 4 MG/2 ML SDV IVPUSH PRN ×2 (10:38→16:55)
[2019-08-08] MEDS: Nozin Nasal Sanitizer NASBOTH SCH ×2 (12:09→21:30)
[2019-08-08] MEDS ORDERED: Warfarin 5 MG Tab PO ONE (15:00)
[2019-08-08] MEDS: Morphine 2 MG/ML Syringe IVPUSH PRN ×2 (15:38→18:06)
[2019-08-08] MEDS: Simvastatin 20 MG Tab PO SCH (21:33)
[2019-08-09] MEDS: ceFAZolin 1 GM in Premix Bag 1 BAG IV SCH ×2 (00:26→07:22)
[2019-08-09] MEDS: Acetaminophen/oxyCODONE 325-5 MG Tab PO PRN ×2 (00:31→09:52)
[2019-08-09] MEDS: Ketorolac 30 MG/ML SDV IVPUSH SCH (05:18)
[2019-08-09] MEDS: ADVAIR INH SCH (07:16)
[2019-08-09] MEDS: Pantoprazole 40 MG Tab.CR PO SCH (07:21)
[2019-08-09] MEDS: Tamsulosin 0.4 MG Cap.ER PO SCH (08:34)
[2019-08-09] MEDS: Nozin Nasal Sanitizer NASBOTH SCH (08:34)
[2019-08-09] MEDS: Docusate Sodium 100 MG Cap PO SCH (08:34)
[2019-08-09] MEDS: PARoxetine 20 MG Tab PO SCH (08:35)
[2019-08-09] MEDS: Furosemide 20 MG Tab PO SCH (08:35)
[2019-08-09] MEDS: Fluticasone Propionate Nasal Spray 16 GM Bottle NASBOTH SCH (08:35)
[2019-08-09] MEDS: ENTRESTO PO SCH (08:36)
[2019-08-09] MEDS: LUTEIN 10 MG PO SCH (08:37)
[2019-08-09] MEDS: Metoprolol Succinate 50 MG Tab.ER PO SCH (08:37)
[2019-08-09] MEDS: Enoxaparin 30 MG/0.3 ML Syringe SUBCUT SCH (10:09)
[2019-08-09 10:42] VITALS: BP 104/61; PULSE 73
--- NOTE | 2019-08-09 12:28 | PCM.SURGPN ---
- General Info Date of Service: 08/08/19 Date of Surgery/Procedure: 08/07/19 POD#: 1 Functional Status: Reports: Pain Controlled, Tolerating Diet, Ambulating, Urinating - Review of Systems General: Reports: Fever, Chills HEENT: Reports: No Symptoms Pulmonary: Reports: No Symptoms Cardiovascular: Reports: No Symptoms Gastrointestinal: Reports: Nausea Genitourinary: Reports: No Symptoms Musculoskeletal: Reports: Leg Pain Skin: Reports: No Symptoms Neurological: Reports: No Symptoms Psychiatric: Reports: No Symptoms - Patient Data Vitals - Most Recent: Last Vital Signs Temp 37.1 C 08/09/19 10:41 Pulse 73 08/09/19 10:41 Resp 16 08/09/19 10:41 BP 104/61 08/09/19 10:41 Pulse Ox 93 L 08/09/19 10:41 Weight - Most Recent: 85.729 kg I&O - Last 24 Hours: Intake & Output 08/08/19 08/09/19 08/09/19 22:59 06:59 14:59 Intake Total 2323 565 400 Balance 2323 565 400 Lab Results Last 24 Hrs: Laboratory Results - last 24 hr 08/09/19 08/09/19 08/09/19 Range/Units 05:30 05:30 05:30 WBC 8.7 (4.5-11.0) K/uL RBC 2.96 L (4.30-5.90) M/uL Hgb 8.9 L (12.0-15.0) g/dL Hct 28.7 L (40.0-54.0) % MCV 97 (80-98) fL MCH 30 (27-31) pg MCHC 31 L (32-36) % Plt Count 132 L (150-400) K/uL Neut % (Auto) 71 H (36-66) % Lymph % (Auto) 14 L (24-44) % [place] % (Auto) 13 H (2-6) % Eos % (Auto) 2 (2-4) % Baso % (Auto) 0 (0-1) % PT 14.3 H (9.5-12.0) sec INR 1.35 H (0.80-1.20) Sodium 138 L (140-148) mmol/L Potassium 3.8 (3.6-5.2) mmol/L Chloride 105 (100-108) mmol/L Carbon Dioxide 25 (21-32) mmol/L Anion Gap 11.8 (5.0-14.0) mmol/L BUN 13 (7-18) mg/dL Creatinine 0.9 (0.8-1.3) mg/dL Est Cr Clr Drug Dosing 73.23 mL/min Estimated GFR (MDRD) > 60 (>60) Glucose 90 (74-106) mg/dL Calcium 7.8 L (8.5-10.1) mg/dL Med Orders - Current: Current Medications Acetaminophen (Tylenol) 650 mg PO Q4H PRN PRN Reason: Pain/Fever Last Admin: 08/07/19 20:29 Dose: 650 mg Hydrocodone Bitart/Acetaminophen (Index 325-5 Mg) 1 tab PO Q3H PRN PRN Reason: Pain (mild 1-3) Last Admin: 08/07/19 14:10 Dose: 1 tab Albuterol (Ventolin Hfa) 0 gm INH Q4H PRN PRN Reason: Shortness of Breath Albuterol/Ipratropium (Duoneb 3.0-0.5 Mg/3 Ml) 3 ml INH Q4H PRN PRN Reason: Wheezing Bandage/Support Products ( [employer]al [employer]) 1 applic NASBOTH BID [facility] Last Admin: 08/09/19 08:34 Dose: 1 applic Docusate Sodium (Colace) 100 mg PO BID [facility] Last Admin: 08/09/19 08:34 Dose: 100 mg Enoxaparin Sodium (Lovenox) 30 mg SUBCUT DAILY [facility] Last Admin: 08/09/19 10:09 Dose: 30 mg Fluticasone Propionate (Flonase) 0 gm NASBOTH DAILY [facility] Last Admin: 08/09/19 08:35 Dose: 1 applic Furosemide (Lasix) 20 mg PO DAILY [facility] Last Admin: 08/09/19 08:35 Dose: 20 mg Cefazolin Sodium/Dextrose 1 gm (/ Premix) 50 mls @ 100 mls/hr IV Q8H [facility] Last Admin: 08/09/19 07:22 Dose: 100 mls/hr Ketorolac Tromethamine (Toradol) 30 mg IVPUSH Q8H [facility] Stop: 08/12/19 14:01 Last Admin: 08/09/19 05:18 Dose: 30 mg Magnesium Hydroxide (Milk Of Magnesia) 30 ml PO BID PRN PRN Reason: Constipation Metoprolol Succinate (Toprol Xl) 50 mg PO DAILY [facility] Last Admin: 08/09/19 08:37 Dose: 50 mg Morphine Sulfate (Morphine) 2 mg IVPUSH Q1H PRN PRN Reason: Breakthrough Pain Last Admin: 08/08/19 18:06 Dose: 2 mg Ondansetron HCl (Zofran) 4 mg IVPUSH Q6H PRN PRN Reason: Nausea/Vomiting Last Admin: 08/08/19 16:55 Dose: 4 mg Oxycodone/Acetaminophen (Percocet 325-5 Mg) 1 - 2 tab PO Q4H PRN PRN Reason: Pain Last Admin: 08/09/19 09:52 Dose: 2 tab Pantoprazole Sodium (Protonix) 40 mg PO BIDAC [facility] Last Admin: 08/09/19 07:21 Dose: 40 mg Paroxetine HCl (Paxil) 10 mg PO DAILY [facility] Last Admin: 08/09/19 08:35 Dose: 10 mg Lutein 10mg Tab ( (Ptom)) 0 each PO DAILY [facility] Last Admin: 08/09/19 08:37 Dose: 1 each Advair Diskus 250/50 ((Ptom)) 1 each INH BIDRT [facility] Last Admin: 08/09/19 07:16 Dose: 1 each Entresto 49mg/51mg (Tab (Ptom)) 0 each PO BID [facility] Last Admin: 08/09/19 08:36 Dose: 1 each Simvastatin (Zocor) 40 mg PO BEDTIME [facility] Last Admin: 08/08/19 21:33 Dose: 40 mg Tamsulosin HCl (Flomax) 0.4 mg PO DAILY [facility] Last Admin: 08/09/19 08:34 Dose: 0.4 mg Warfarin Sodium (Coumadin) 10 mg PO ONETIME ONE Stop: 08/09/19 12:31 Last Admin: 08/09/19 11:46 Dose: 10 mg Discontinued Medications Fentanyl (Sublimaze) Confirm Administered Dose 100 mcg .ROUTE .STK-MED ONE Stop: 08/07/19 07:27 Fentanyl (Sublimaze) Confirm Administered Dose 100 mcg .ROUTE .STK-MED ONE Stop: 08/07/19 07:52 Fentanyl (Sublimaze) Confirm Administered Dose 100 mcg .ROUTE .STK-MED ONE Stop: 08/07/19 08:10 Tranexamic Acid 870 mg/ Sodium (Chloride) 58.7 mls @ 235 mls/hr IV ONETIME ONE Stop: 08/07/19 07:44 Last Admin: 08/07/19 08:00 Dose: 235 mls/hr Lactated Ringer's (Ringers, Lactated) 1,000 mls @ 75 mls/hr IV ASDIRECTED [facility] Last Admin: 08/07/19 06:18 Dose: 75 mls/hr Cefazolin Sodium 2 gm/ Sodium (Chloride) 50 mls @ 100 mls/hr IV ONETIME ONE Stop: 08/07/19 07:59 Last Admin: 08/07/19 07:35 Dose: 100 mls/hr Lactated Ringer's (Ringers, Lactated) Confirm Administered Dose 1,000 mls @ as directed .ROUTE .STK-MED ONE Stop: 08/07/19 08:58 Cefazolin Sodium/Dextrose 1 gm (/ Premix) 50 mls @ 100 mls/hr IV Q8H [facility] Stop: 08/08/19 06:59 Last Admin: 08/08/19 05:32 Dose: 100 mls/hr Sodium Chloride (Normal Saline) 1,000 mls @ 125 mls/hr IV ASDIRECTED [facility] Last Admin: 08/08/19 18:12 Dose: 125 mls/hr Tranexamic Acid 870 mg/ Sodium (Chloride) 58.7 mls @ 235 mls/hr IV ONETIME ONE Stop: 08/07/19 11:14 Last Admin: 08/07/19 11:18 Dose: 235 mls/hr Ketorolac Tromethamine (Toradol) 15 mg IVPUSH Q8H [facility] Stop: 08/12/19 14:01 Last Admin: 08/08/19 05:27 Dose: 15 mg Midazolam HCl (Versed 1 Mg/Ml) Confirm Administered Dose 2 mg .ROUTE .STK-MED ONE Stop: 08/07/19 07:27 Midazolam HCl (Versed 1 Mg/Ml) Confirm Administered Dose 2 mg .ROUTE .STK-MED ONE Stop: 08/07/19 07:52 Midazolam HCl (Versed 1 Mg/Ml) Confirm Administered Dose 2 mg .ROUTE .STK-MED ONE Stop: 08/07/19 08:10 Povidone Iodine (Betadine 10% Soln) Confirm Administered Dose 1 ml .ROUTE .STK- MED ONE Stop: 08/07/19 06:32 Last Admin: 08/07/19 08:24 Dose: 25 ml Warfarin Sodium (Coumadin) 10 mg PO ONETIME ONE Stop: 08/08/19 15:01 Last Admin: 08/08/19 15:31 Dose: 10 mg Warfarin Sodium (Coumadin) 10 mg PO ONETIME ONE Stop: 08/09/19 15:01 - Exam Wound/Incisions: Dressing Dry and Intact General: Alert, Oriented HEENT: Pupils Equal Neck: Supple Lungs: Clear to Auscultation, Normal Respiratory Effort Cardiovascular: Regular Rate, Regular Rhythm GI/Abdominal Exam: Normal Bowel Sounds, Soft, Non-Tender, No Distention Extremities: Joint Swelling, Limited Range of Motion Skin: Warm, Dry Neurological: No New Focal Deficit Psy/Mental Status: Alert, Normal Affect, Normal Mood - Problem List & Annotations (1) Status post total right knee replacement SNOMED Code(s): 2310313485382, 4451142260617 Code(s): Z96.651 - PRESENCE OF RIGHT ARTIFICIAL KNEE JOINT Status: Acute Current Visit: Yes - Problem List Review Problem List Initiated/Reviewed/Updated: Yes - My Orders Last 24 Hours: Active Orders 24 hr Category Date Time Status Admission Status [Patient Status] [ADT] Routine ADT 08/08/19 11:30 Active Ready for Discharge [RC] PER UNIT ROUTINE Care 08/09/19 10:32 Active INR,PT,PROTHROMBIN TIME [COAG] AM Lab 08/10/19 05:11 Ordered Ketorolac [Toradol] Med 08/08/19 14:00 Active 30 mg IVPUSH Q8H Warfarin [Coumadin] Med 08/09/19 12:30 Once 10 mg PO ONETIME ONE ceFAZolin [Ancef] 1 gm Med 08/08/19 16:00 Active Premix Bag 1 bag IV Q8H Medication Orders Acetaminophen (Tylenol) 650 mg PO Q4H PRN PRN Reason: Pain/Fever Last Admin: 08/07/19 20:29 Dose: 650 mg Hydrocodone Bitart/Acetaminophen (Index 325-5 Mg) 1 tab PO Q3H PRN PRN Reason: Pain (mild 1-3) Last Admin: 08/07/19 14:10 Dose: 1 tab Albuterol (Ventolin Hfa) 0 gm INH Q4H PRN PRN Reason: Shortness of Breath Albuterol/Ipratropium (Duoneb 3.0-0.5 Mg/3 Ml) 3 ml INH Q4H PRN PRN Reason: Wheezing Bandage/Support Products ( Nasal [employer]) 1 applic NASBOTH BID [facility] Last Admin: 08/09/19 08:34 Dose: 1 applic Admin: 08/08/19 21:30 Dose: 1 applic Admin: 08/08/19 12:09 Dose: Admin: 08/07/19 21:53 Dose: Not Given Admin: 08/07/19 05:49 Dose: 1 applic Docusate Sodium (Colace) 100 mg PO BID [facility] Last Admin: 08/09/19 08:34 Dose: 100 mg Admin: 08/08/19 21:32 Dose: 100 mg Admin: 08/08/19 09:31 Dose: 100 mg Admin: 08/07/19 21:53 Dose: 100 mg Enoxaparin Sodium (Lovenox) 30 mg SUBCUT DAILY [facility] Last Admin: 08/09/19 10:09 Dose: 30 mg Admin: 08/08/19 09:32 Dose: 30 mg Fluticasone Propionate (Flonase) 0 gm NASBOTH DAILY [facility] Last Admin: 08/09/19 08:35 Dose: 1 applic Admin: 08/08/19 09:32 Dose: 1 applic Furosemide (Lasix) 20 mg PO DAILY [facility] Last Admin: 08/09/19 08:35 Dose: 20 mg Admin: 08/08/19 09:32 Dose: 20 mg Cefazolin Sodium/Dextrose 1 gm (/ Premix) 50 mls @ 100 mls/hr IV Q8H [facility] Last Admin: 08/09/19 07:22 Dose: 100 mls/hr Infusion: 08/09/19 00:56 Dose: 100 mls/hr Admin: 08/09/19 00:26 Dose: 100 mls/hr Infusion: 08/08/19 17:22 Dose: 100 mls/hr Admin: 08/08/19 16:52 Dose: 100 mls/hr Ketorolac Tromethamine (Toradol) 30 mg IVPUSH Q8H [facility] Stop: 08/12/19 14:01 Last Admin: 08/09/19 05:18 Dose: 30 mg Admin: 08/08/19 21:35 Dose: 30 mg Admin: 08/08/19 14:18 Dose: 30 mg Magnesium Hydroxide (Milk Of Magnesia) 30 ml PO BID PRN PRN Reason: Constipation Metoprolol Succinate (Toprol Xl) 50 mg PO DAILY [facility] Last Admin: 08/09/19 08:37 Dose: 50 mg Admin: 08/08/19 09:34 Dose: 50 mg Morphine Sulfate (Morphine) 2 mg IVPUSH Q1H PRN PRN Reason: Breakthrough Pain Last Admin: 08/08/19 18:06 Dose: 2 mg Admin: 08/08/19 15:38 Dose: 2 mg Admin: 08/07/19 21:47 Dose: 2 mg Admin: 08/07/19 18:46 Dose: 2 mg Admin: 08/07/19 16:41 Dose: 2 mg Admin: 08/07/19 14:37 Dose: 2 mg Admin: 08/07/19 13:12 Dose: 2 mg Admin: 08/07/19 12:37 Dose: 2 mg Ondansetron HCl (Zofran) 4 mg IVPUSH Q6H PRN PRN Reason: Nausea/Vomiting Last Admin: 08/08/19 16:55 Dose: 4 mg Admin: 08/08/19 10:38 Dose: 4 mg Admin: 08/07/19 20:35 Dose: 4 mg Oxycodone/Acetaminophen (Percocet 325-5 Mg) 1 - 2 tab PO Q4H PRN PRN Reason: Pain Last Admin: 08/09/19 09:52 Dose: 2 tab Admin: 08/09/19 00:31 Dose: 2 tab Admin: 08/08/19 20:10 Dose: 2 tab Admin: 08/08/19 12:10 Dose: 2 tab Admin: 08/08/19 01:06 Dose: 2 tab Admin: 08/07/19 20:28 Dose: 2 tab Admin: 08/07/19 16:42 Dose: 2 tab Admin: 08/07/19 12:23 Dose: 1 tab Pantoprazole Sodium (Protonix) 40 mg PO BIDAC [facility] Last Admin: 08/09/19 07:21 Dose: 40 mg Admin: 08/08/19 15:32 Dose: 40 mg Admin: 08/08/19 07:39 Dose: 40 mg Admin: 08/07/19 16:33 Dose: 40 mg Paroxetine HCl (Paxil) 10 mg PO DAILY [facility] Last Admin: 08/09/19 08:35 Dose: 10 mg Admin: 08/08/19 09:33 Dose: 10 mg Lutein 10mg Tab ( (Ptom)) 0 each PO DAILY [facility] Last Admin: 08/09/19 08:37 Dose: 1 each Admin: 08/08/19 09:41 Dose: 1 each Advair Diskus 250/50 ((Ptom)) 1 each INH BIDRT [facility] Last Admin: 08/09/19 07:16 Dose: 1 each Admin: 08/08/19 21:31 Dose: 1 each Admin: 08/08/19 07:23 Dose: 1 each Admin: 08/07/19 21:53 Dose: 1 each Entresto 49mg/51mg (Tab (Ptom)) 0 each PO BID [facility] Last Admin: 08/09/19 08:36 Dose: 1 each Admin: 08/08/19 21:32 Dose: 1 each Admin: 08/08/19 09:33 Dose: 1 each Admin: 08/07/19 21:54 Dose: 1 each Simvastatin (Zocor) 40 mg PO BEDTIME [facility] Last Admin: 08/08/19 21:33 Dose: 40 mg Admin: 08/07/19 21:55 Dose: 40 mg Tamsulosin HCl (Flomax) 0.4 mg PO DAILY [facility] Last Admin: 08/09/19 08:34 Dose: 0.4 mg Admin: 08/08/19 09:32 Dose: 0.4 mg Warfarin Sodium (Coumadin) 10 mg PO ONETIME ONE Stop: 08/09/19 12:31 Last Admin: 08/09/19 11:46 Dose: 10 mg - Assessment Assessment (Free Text/Narrative):: Did very well yesterday after procedure. More pain and didn't sleep well last night. Having slight chills and temp spike to 100. No other symptoms of infection and WBC 9.6 this morning. - Plan Plan (Free Text/Narrative):: Continue IV Ancef thru tonight, D/C if afebrile, recheck CBC, BMP, PT/INR in am. Coumadin 10 mg today. Continue PT/OT.
[2019-08-09] MEDS ORDERED: Warfarin 5 MG Tab PO ONE ×2 (12:30→15:00)
--- NOTE | 2019-08-15 09:47 | OR ---
CORRECTED COPY: 08/15/2019 DATE OF PROCEDURE: 08/07/2019 SURGEON: Mateo Araujo MD PREOPERATIVE DIAGNOSIS: Osteoarthritis, right knee. POSTOPERATIVE DIAGNOSIS: Osteoarthritis, right knee. PROCEDURE PERFORMED: Right total knee arthroplasty using [employer] components with a size 9 femur, 29 mm patellar button, 10 mm insert. ANESTHESIA: Spinal with sedation. INDICATIONS: is a 73-year-old gentleman with history of progressive pain in the right knee for the past year. He has a history of previous trauma to the right knee including partial patellectomy. X-rays reveal end-stage osteoarthritis. He now presents for right total knee arthroplasty. Risks, benefits, potential complications of the procedure were discussed. DESCRIPTION OF PROCEDURE: After adequate anesthesia was obtained, the patient was placed supine with a tourniquet about the upper thigh. The leg was prepped and draped in a sterile fashion. Leg was then exsanguinated and then an incision was made in the anterior aspect of the knee, carried down through the subcutaneous tissues. Incision was made slightly more lateral than typical due to an old medial scar and attempt was made to increase the width of the skin bridge to prevent wound complications. Medial parapatellar approach was utilized. The patella was everted and showed significant wear. The patella was very wide, but extremely narrow in the anterior inferior dimension due to previous patellectomy. Intramedullary canal of the femur was drilled. A guide was placed and distal femur was cut. Extramedullary tibial guide was then placed, secured and proximal tibia was cut with an oscillating saw. The remaining menisci were excised. The femur was then sized to a 9 component, cutting jig was placed and the remaining femoral cuts were made. The trial was placed and an intramedullary notch cut was made for a posterior cruciate sacrificing component. The tibia was then sized, baseplate was secured with small pins. Metaphysis was drilled and punched. The trial polyethylene was placed. Knee was taken through range of motion and was pretty stable. Patella was resurfaced with the 29 mm patellar button, which was the largest that the superior and inferior dimension of the patella could accommodate. This did show some lateral tracking and a lateral release was performed. The trials were removed. The knee was thoroughly irrigated with pulse lavage. Bone surfaces were dried. Components were cemented in place. Excess cement was removed. The knee was held in full extension as the cement cured with the trial insert. The trial was removed, the knee was irrigated, and the final polyethylene was snapped into position. The knee was irrigated once again with pulse lavage, followed by a dilute Betadine solution, which was left in place for 2-1/2 minutes and then irrigated once again with pulse lavage. The knee was closed with #2 Ethibond in interrupted fashion, 2-0 Vicryl in the subcu and running 3-0 Monocryl. Steri- Strips were applied. Light compressive dressing was then placed. The patient tolerated procedure well with no complications, taken from the operating room in stable condition. Mateo Araujo MD /[id number] MTDD
== END 2019-08-09 13:37 | disposition home or self-care (01) | DRG 470 ==
LOC: JP.SDS 05:21 → JP.MS 09:30 → JP.SDSSCHI 09:30 → UNDOADMOB 09:30 → JP.SDS 08-08 11:29 → INTOOBSV 08-08 11:30 → JP.SDSSCHI 08-08 11:30 → OBSVTOIN 08-08 11:30 → UNDODISIN 08-09 12:20
PROVIDERS: ADMIT Specialist; ATTEND Specialist
PROC: 0SRC0J9 Replacement of Right Knee Joint with Synthetic Substitute, Cemented, Open Approach (ICD-10-PCS; principal; 2019-08-08)
DX: M17.11 Unilateral primary osteoarthritis, right knee (principal); I50.32 Chronic diastolic (congestive) heart failure; J44.9 Chronic obstructive pulmonary disease, unspecified; I11.0 Hypertensive heart disease with heart failure; Z99.81 Dependence on supplemental oxygen; Z85.828 Personal history of other malignant neoplasm of skin; Z96.659 Presence of unspecified artificial knee joint; G47.33 Obstructive sleep apnea (adult) (pediatric); Z86.718 Personal history of other venous thrombosis and embolism; K21.9 Gastro-esophageal reflux disease without esophagitis; F41.9 Anxiety disorder, unspecified; I25.10 Atherosclerotic heart disease of native coronary artery without angina pectoris; J45.40 Moderate persistent asthma, uncomplicated; Z85.22 Personal history of malignant neoplasm of nasal cavities, middle ear, and accessory sinuses; E78.5 Hyperlipidemia, unspecified; E04.9 Nontoxic goiter, unspecified; M19.90 Unspecified osteoarthritis, unspecified site; Z79.899 Other long term (current) drug therapy; Z91.018 Allergy to other foods; Z91.012 Allergy to eggs; Z88.5 Allergy status to narcotic agent
CPT/HCPCS: 36415; 73560-26-RT; 73560-RT; 80048; 85025; 85027; 85610; 86850; 86900; 86901; 94640; 97110-GP; 97116-GP; 97140-GP; 97162-GP; 97165-GO; 97530-GP; A9270-GY; C1713; C1776; J0690; J1650; J1885; J2250; J2270; J2405; J3010; J7030; J7050; J7120

== ENCOUNTER 2020-03-15 06:47 | Day surgery (SDC) | payer MEDICARE ==
[2020-03-15] MEDS ORDERED: fentaNYL 250 MCG/5 ML SDV ONE (07:37)
[2020-03-15] MEDS ORDERED: Neostigmine Methylsulfate 1 MG/ML 5 ML Syringe ONE (07:38)
[2020-03-15] MEDS ORDERED: Etomidate 2 MG/ML 10 ML SDV ONE (07:38)
[2020-03-15] MEDS ORDERED: Dexamethasone 4 MG/ML SDV ONE (07:38)
[2020-03-15] MEDS ORDERED: Ondansetron 4 MG/2 ML SDV ONE (07:38)
[2020-03-15] MEDS ORDERED: Rocuronium 50 MG/5 ML Vial ONE (07:38)
[2020-03-15] MEDS ORDERED: Propofol 200 MG/20 ML SDV ONE (07:38)
[2020-03-15] MEDS ORDERED: Glycopyrrolate 0.2 MG/ML 5 ML MDV ONE (07:38)
[2020-03-15] MEDS ORDERED: Albuterol/Ipratropium 3.0-0.5 MG/3 ML Neb Soln NEB ONE (07:45)
[2020-03-15] MEDS ORDERED: Sodium Chloride 0.9% 1,000 ML IV SCH (07:45)
[2020-03-15] MEDS ORDERED: metroNIDAZOLE/Normal Saline 500 MG in Premix Bag 1 BAG IV ONE (08:00)
[2020-03-15] MEDS ORDERED: ceFAZolin 2 GM in Premix Bag 1 BAG IV ONE (08:00)
[2020-03-15] MEDS ORDERED: ceFAZolin 2 GM in Sodium Chloride 0.9% 100 ML IV ONE (08:00)
[2020-03-15] MEDS: Lidocaine 1% with EPINEPHrine 1:100,000 50 ML MDV ONE ×2 (09:02→09:35)
[2020-03-15] MEDS: Bupivacaine 0.5% 50 ML MDV ONE ×2 (09:03→09:35)
[2020-03-15] MEDS ORDERED: Benzocaine/Cetylpyridinium/Menthol Lozenge MUCMEM PRN (09:48)
[2020-03-15] MEDS ORDERED: Acetaminophen/HYDROcodone 325-5 MG Tab PO PRN (09:48)
[2020-03-15] MEDS ORDERED: Docusate Sodium 100 MG Cap PO PRN (09:48)
[2020-03-15] MEDS ORDERED: Zolpidem 5 MG Tab PO PRN (09:48)
[2020-03-15] MEDS ORDERED: hydrOXYzine HCL 100 MG/2 ML SDV IM PRN (09:48)
[2020-03-15] MEDS ORDERED: fentaNYL 100 MCG/2 ML SDV IVPUSH PRN (09:49)
--- NOTE | 2020-03-15 11:06 | OR ---
DATE OF PROCEDURE: 03/15/2020 SURGEON: Poli Escoto MD PREOPERATIVE DIAGNOSIS: Incarcerated recurrent inguinal hernia, left. POSTOPERATIVE DIAGNOSIS: Incarcerated recurrent inguinal hernia, left. PROCEDURE: Laparoscopic total extraperitoneal hernia repair, converted to open hernia repair. COMPLICATIONS: None. IMPORT/EXPORT FREIGHT FORWARDER: None. ANESTHESIA: General. RISKS: Risks, benefits, alternatives, and limitations including, but not limited to infection, bleeding, injury to abdominal structures, requirement for open surgery, cardiovascular issues, and other risks not listed here were explained to the patient, who wished to proceed. PROCEDURE IN DETAIL: The patient was placed in supine position. An infraumbilical midline incision was made. This was then carried down with electrocautery to the external oblique which was opened. The rectus sheath was parted to the left and interposed on the left side. A Pean was used to dissect the preperitoneal plane. The balloon was introduced and advanced and insufflated. It was immediately noted that the patient had incarcerated bowel precluding any safe laparoscopic repair. Therefore, this was converted to an open procedure. The fascia was closed with #1 Vicryl, after the air was removed. Skin was closed with 3-0 Vicryl and 4-0 Vicryl in an interrupted running fashion. The previous incision was opened. This was carried down to electrocautery. The patient was noted to have an incarcerated small bowel through an indirect hernia to the side of the mesh. Sharp dissection was used to deflect this incarcerated bowel back into the abdomen. An extra-large plug and patch system was then placed. This was hand-sewn with interrupted Vicryl sutures. The overlay patch was then placed in proximity to the pubic symphysis and then also closed. The external oblique, which had been fused anatomically at this time, was also closed over the defect. Skin was closed with 3-0 Vicryl and 4-0 Vicryl in interrupted running fashion and Dermabond was applied. The patient tolerated the procedure well. Poli Escoto MD /[id number]
[2020-03-15 11:37] VITALS: BP 126/68; PULSE 85
== END 2020-03-15 12:16 | disposition home or self-care (01) ==
LOC: JP.SDS 06:47
PROVIDERS: ATTEND Surgery
DX: K40.31 Unilateral inguinal hernia, with obstruction, without gangrene, recurrent (principal); Z53.31 Laparoscopic surgical procedure converted to open procedure; I11.0 Hypertensive heart disease with heart failure; I50.22 Chronic systolic (congestive) heart failure; I25.10 Atherosclerotic heart disease of native coronary artery without angina pectoris; K21.9 Gastro-esophageal reflux disease without esophagitis; F41.9 Anxiety disorder, unspecified; D68.59 Other primary thrombophilia; J44.1 Chronic obstructive pulmonary disease with (acute) exacerbation; Z79.899 Other long term (current) drug therapy; Z79.51 Long term (current) use of inhaled steroids; Z79.82 Long term (current) use of aspirin; Z91.018 Allergy to other foods; Z91.012 Allergy to eggs; Z91.010 Allergy to peanuts; Z88.8 Allergy status to other drugs, medicaments and biological substances; Z11.59 Encounter for screening for other viral diseases
CPT/HCPCS: 49521; A9270; C1781; J0171; J0690; J1100; J2405; J2710; J2795; J3010; J3410; J3490; J7030; J7050; U0002; J2704; J7620-GY

== ENCOUNTER 2020-10-01 05:30 | Day surgery (SDC) | payer MEDICARE ==
[2020-10-01] MEDS ORDERED: Dextrose 5%-Lactated Ringers 1,000 ML IV SCH (06:00)
[2020-10-01] MEDS ORDERED: Acetaminophen 500 MG Tab PO ONE (06:00)
[2020-10-01] MEDS ORDERED: Lidocaine 1% with EPINEPHrine 1:100,000 50 ML MDV ONE (06:53)
[2020-10-01] MEDS ORDERED: Bupivacaine 0.5% 50 ML MDV ONE (06:53)
[2020-10-01] MEDS ORDERED: Albuterol/Ipratropium 3.0-0.5 MG/3 ML Neb Soln NEB ONE (07:00)
[2020-10-01] MEDS ORDERED: fentaNYL 250 MCG/5 ML SDV ONE (07:13)
[2020-10-01] MEDS ORDERED: Neostigmine Methylsulfate 1 MG/ML 5 ML Syringe ONE (07:14)
[2020-10-01] MEDS ORDERED: Dexamethasone 4 MG/ML SDV ONE (07:14)
[2020-10-01] MEDS ORDERED: Rocuronium 50 MG/5 ML Vial ONE (07:14)
[2020-10-01] MEDS ORDERED: Ondansetron 4 MG/2 ML SDV ONE (07:14)
[2020-10-01] MEDS ORDERED: Succinylcholine 200 MG/10 ML MDV ONE (07:14)
[2020-10-01] MEDS ORDERED: Glycopyrrolate 0.2 MG/ML 5 ML MDV ONE (07:14)
[2020-10-01] MEDS ORDERED: Propofol 200 MG/20 ML SDV ONE (07:14)
[2020-10-01] MEDS ORDERED: ceFAZolin 2 GM in Premix Bag 1 BAG IV ONE (07:15)
[2020-10-01] MEDS ORDERED: Meropenem 500 MG SDV ONE (08:55)
[2020-10-01] MEDS ORDERED: Acetaminophen/HYDROcodone 325-5 MG Tab PO PRN (10:58)
[2020-10-01 11:59] VITALS: BP 106/66; PULSE 79
--- NOTE | 2020-10-13 11:10 | OR ---
DATE OF PROCEDURE: 10/01/2020 SURGEON: Dagoberto Eagle MD PREOPERATIVE DIAGNOSIS: Incarcerated recurrent left inguinal hernia. POSTOPERATIVE DIAGNOSES: 1. Incarcerated recurrent direct left inguinal hernia. 2. Migration of a portion of intraperitoneal mesh becoming adherent to the sigmoid colon. OPERATIVE PROCEDURES: Left inguinal exploration with, 1. Open repair of incarcerated recurrent left inguinal hernia with mesh ([id number]). 2. Removal of portion of intraperitoneal mesh adherent to sigmoid colon ([id number]). ANESTHESIA: General. PHYSICAL FITNESS TRAINER: Tammi Delarosa PA-C INDICATIONS FOR PROCEDURE: The patient presents with recurrence of the left inguinal hernia and he has had 2 previous repairs on this side and at this point, had incarcerated segment over the area of the inguinal floor. Plan is to proceed with an open repair. Given the complexity of the situation, a general anesthetic will be planned. Potential risks of the procedure including bleeding, infection, injury to the nerves or surrounding viscera in the area, problems with the hernia mesh becoming infected or the hernia recurring once again were all reviewed, and the patient wishes to proceed. DETAILS OF PROCEDURE: The patient was taken to the operating room and placed in the supine position. After general endotracheal anesthesia was induced, the abdomen and groin areas were prepped and draped. The previous left inguinal incision was then reused and carried down through the skin and subcutaneous tissue and through the external oblique aponeurosis, the patient was noted to have recurrence of the hernia between the 2 portions of the mesh plug that were present one medial and one lateral. This appeared to be in a plane medial to the inferior epigastric vessels, thus, it would be a direct hernia. Upon incision of the hernia sac, some omentum was present. This was dissected free. As one dissected further, it was noted that some of the previous mesh had migrated intraperitoneally was adherent to the sigmoid colon. This was carefully dissected free from the sigmoid colon without any significant deserosalization being evident in that portion of the mesh excised. An extra large mesh plug was then placed into the defect. It was affixed to the Doni ligament with titanium tacking screws and then to the edges of the conjoint tendon and adjacent segments of mesh with horizontal mattress sutures of 0 Vicryl stitch. At that point, no further major problems were noted. The conjoined tendon was reapproximated to the shelving portion of the inguinal ligament with a #1 Vicryl stitch. The flat portion of the mesh plug system was not reemployed in this case, and the external oblique aponeurosis was approximated with some 3-0 Vicryl stitch, subcutaneous tissue with 4-0 Vicryl stitch, and the skin with giovanna. Prior to closure, the wound was anesthetized with 1% lidocaine mixed with Marcaine. Physician assistant wrestling coach, Tammi Delarosa, played an essential role in assisting in this case, helping to position the patient, retract structures as needed, as well as suturing and cutting sutures when indicated. Her presence improved the patient's safety and decreased the operative time. Dagoberto Eagle MD /[id number]
== END 2020-10-01 12:04 | disposition home or self-care (01) ==
LOC: JP.SDS 05:30
PROVIDERS: ATTEND Surgery
DX: K40.31 Unilateral inguinal hernia, with obstruction, without gangrene, recurrent (principal); E78.5 Hyperlipidemia, unspecified; I50.22 Chronic systolic (congestive) heart failure; D68.59 Other primary thrombophilia; J45.20 Mild intermittent asthma, uncomplicated; I11.0 Hypertensive heart disease with heart failure; G47.33 Obstructive sleep apnea (adult) (pediatric); Z79.899 Other long term (current) drug therapy; Z88.8 Allergy status to other drugs, medicaments and biological substances; Z91.010 Allergy to peanuts; Z79.82 Long term (current) use of aspirin; Z98.890 Other specified postprocedural states; Z87.891 Personal history of nicotine dependence
CPT/HCPCS: 49521; 88300; 94640; A9270; C1713; C1781; J0330; J0690; J1100; J2020; J2185; J2405; J2704; J2710; J3010; J3490; J7121; J7620-GY

== ENCOUNTER 2020-11-07 07:19 | Day surgery (SDC) | payer MEDICARE ==
[2020-11-07] MEDS ORDERED: Dextrose 5%-Lactated Ringers 1,000 ML IV SCH (08:00)
[2020-11-07] MEDS ORDERED: Midazolam 1 MG/ML 2 ML SDV ONE (08:25)
[2020-11-07] MEDS ORDERED: fentaNYL 100 MCG/2 ML SDV ONE (08:25)
[2020-11-07] MEDS ORDERED: Propofol 200 MG/20 ML SDV ONE (08:26)
[2020-11-07] MEDS ORDERED: Albuterol/Ipratropium 3.0-0.5 MG/3 ML Neb Soln NEB ONE (08:30)
[2020-11-07 11:22] VITALS: BP 117/76; PULSE 62
--- NOTE | 2020-11-11 10:36 | OR ---
DATE OF PROCEDURE: 11/07/2020 SURGEON: Dagoberto Eagle MD PREOPERATIVE DIAGNOSIS: Recurrent gastroesophageal reflux disease. POSTOPERATIVE DIAGNOSIS: Large recurrent hiatal hernia with active gastroesophageal reflux disease. OPERATIVE PROCEDURE: Esophagogastroduodenoscopy with: 1. Biopsies of esophagogastric junction for histologic evaluation. 2. Biopsies of antrum for CLOtest. ANESTHESIA: IV sedation. INDICATION FOR PROCEDURE: The patient is a 74-year-old status post a laparoscopic Lalitha fundoplication in 2017. Up until recently, he has done quite well. He has now developed recurrent problems with heartburn and regurgitation with throat irritation as such associated with the reflux. Plan was to proceed with upper GI endoscopy with biopsies and/or dilation as indicated. Potential risks including bleeding and perforation were discussed, and the patient wishes to proceed. DETAILS OF PROCEDURE: The patient was taken to the operating room, placed in a left lateral decubitus position. IV sedation was administered, after which the upper GI endoscope was passed orally through the length of the esophagus, into the stomach with retroflexion view of the fundus, and thereafter through the pyloric channel, and into the junction of the third and fourth portions of the duodenum. Findings included some redness in the hypopharynx and larynx. The upper esophageal sphincter and esophageal body were unremarkable. The patient did have roughly a 4 to 5 cm recurrent hiatal hernia which was associated with active gastroesophageal reflux disease at the EG junction. No stricturing or plaquing was seen. At the level of the hiatal hernia, there were some gastric erosions likely related to the mechanical stress of that portion of stomach rolling over back and forth across the diaphragm during the respiratory cycle. Remainder of the stomach and the duodenum were unremarkable. At this point, biopsies were obtained from the antrum and sent for CLOtest for H. pylori. Multiple biopsies from the esophagogastric junction were then obtained and sent for histologic evaluation. Minimal bleeding from the biopsy sites was seen and the procedure then concluded. Plan at this point would be to proceed with a repeat laparoscopy, possible laparotomy and either redo fundoplication and hiatal hernia repair and a resectional procedure depending on the quality of the tissues identified at the time of the procedure the latter of which would include a partial gastrectomy and/or esophagogastrectomy with Colleen-en-Y reconstruction. This was reviewed with the patient and and they wished to proceed. The surgery will be scheduled for next week. The patient will be set up to see Dr. 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 The potential risks of procedure were reviewed at length with the patient and and they wished to proceed. Dagoberto Eagle MD /[id number]
== END 2020-11-07 12:11 | disposition home or self-care (01) ==
LOC: JP.SDS 07:19
PROVIDERS: ATTEND Surgery
DX: K21.9 Gastro-esophageal reflux disease without esophagitis (principal); K44.9 Diaphragmatic hernia without obstruction or gangrene; G47.33 Obstructive sleep apnea (adult) (pediatric); I50.9 Heart failure, unspecified; J45.909 Unspecified asthma, uncomplicated; Z98.84 Bariatric surgery status
CPT/HCPCS: 43239; 87081; 94640; J2250; J2704; J3010; J7121; J7620-GY

== ENCOUNTER 2020-11-10 06:18 | Emergency (ER) | payer MEDICARE ==
[2020-11-10 06:48] VITALS: BP 105/64; PULSE 71
[2020-11-10] MEDS ORDERED: fentaNYL 100 MCG/2 ML SDV IM ONE (06:51)
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
--- NOTE | 2020-11-10 07:22 | CRLCR ---
INDICATION: fall, pain HISTORY: Pain after fall. COMPARISON: None. TECHNIQUE: Right wrist, 3 views. FINDINGS: No fracture is identified. The proximal and distal rows of the carpus are intact. There is no lunate or perilunate dislocation on the lateral projection. No articular erosion. No periarticular osteopenia. No radiopaque foreign body. IMPRESSION: No acute fracture is demonstrated. Dictated by Poli Rojas MD @ 11/10/2020 7:21:17 AM Dictated by: Poli Rojas MD @ 11/10/2020 07:21:26 (Electronically Signed)
== END 2020-11-10 08:05 | disposition home or self-care (01) ==
LOC: JP.ED 06:18
DX: S63.501A Unspecified sprain of right wrist, initial encounter (principal); E78.00 Pure hypercholesterolemia, unspecified; I10 Essential (primary) hypertension; J45.909 Unspecified asthma, uncomplicated; K21.9 Gastro-esophageal reflux disease without esophagitis; M19.90 Unspecified osteoarthritis, unspecified site; Z79.01 Long term (current) use of anticoagulants; Z91.012 Allergy to eggs; Z91.018 Allergy to other foods; Z91.010 Allergy to peanuts; Z88.5 Allergy status to narcotic agent; Z91.048 Other nonmedicinal substance allergy status; Z79.82 Long term (current) use of aspirin; Z79.899 Other long term (current) drug therapy; W00.0XXA Fall on same level due to ice and snow, initial encounter
CPT/HCPCS: 73110; 96372; 99283; J3010

== ENCOUNTER 2020-11-15 05:32 | Inpatient (IN) | payer MEDICARE ==
[2020-11-15] MEDS ORDERED: Dextrose 5%-Lactated Ringers 1,000 ML IV SCH (06:00)
[2020-11-15] MEDS ORDERED: Acetaminophen 500 MG Tab PO ONE (06:00)
[2020-11-15] MEDS ORDERED: Albuterol/Ipratropium 3.0-0.5 MG/3 ML Neb Soln NEB ONE (06:00)
[2020-11-15] MEDS ORDERED: cefOXitin 2 GM in Sodium Chloride 0.9% 50 ML IV ONE (06:00)
[2020-11-15] MEDS ORDERED: Meropenem 500 MG SDV ONE (06:33)
[2020-11-15] MEDS ORDERED: fentaNYL 250 MCG/5 ML SDV ONE ×3 (07:01→08:11)
[2020-11-15] MEDS ORDERED: Glycopyrrolate 0.2 MG/ML 5 ML MDV ONE (07:02)
[2020-11-15] MEDS ORDERED: Rocuronium 50 MG/5 ML Vial ONE (07:02)
[2020-11-15] MEDS ORDERED: Dexamethasone 4 MG/ML SDV ONE (07:02)
[2020-11-15] MEDS ORDERED: Succinylcholine 200 MG/10 ML MDV ONE (07:02)
[2020-11-15] MEDS ORDERED: Ondansetron 4 MG/2 ML SDV ONE (07:02)
[2020-11-15] MEDS ORDERED: Neostigmine Methylsulfate 1 MG/ML 5 ML Syringe ONE (07:02)
[2020-11-15] MEDS ORDERED: Propofol 200 MG/20 ML SDV ONE (07:02)
[2020-11-15] MEDS: Formoterol/Mometasone 200-5 MCG 8.8 GM Inhaler IH SCH ×3 (07:06→20:04)
[2020-11-15] MEDS ORDERED: Lidocaine 2% Jelly 10 ML Urojet ONE (07:26)
[2020-11-15] MEDS ORDERED: Ketamine 500 MG/5 ML MDV IV SCH (07:30)
[2020-11-15] MEDS ORDERED: Ketamine 50 MG in Sodium Chloride 0.9% 49.5 ML IV SCH (07:30)
[2020-11-15] MEDS ORDERED: Ropivacaine 44 ML, dexAMETHasone 8 MG, EPINEPHrine 0.4 MG, Sodium Chloride 0.9% 33.6 ML NERVRT SCH ×4 (07:30)
[2020-11-15] MEDS ORDERED: diphenhydrAMINE 25 MG Cap PO PRN (10:01)
[2020-11-15] MEDS ORDERED: Ondansetron 4 MG/2 ML SDV IVPUSH PRN (10:01)
[2020-11-15] MEDS ORDERED: diphenhydrAMINE 50 MG/ML SDV IVPUSH PRN ×2 (10:01→11:00)
[2020-11-15] MEDS ORDERED: Naloxone 0.4 MG/ML SDV IVPUSH PRN (10:01)
[2020-11-15] MEDS ORDERED: Acetaminophen 500 MG Tab PO PRN (11:00)
[2020-11-15] MEDS ORDERED: Cyclobenzaprine 10 MG Tab PO PRN (11:00)
[2020-11-15] MEDS ORDERED: hydrOXYzine HCL 100 MG/2 ML SDV IM PRN (11:00)
[2020-11-15] MEDS ORDERED: Labetalol 20 MG/4 ML Syringe IVPUSH PRN (11:00)
[2020-11-15] MEDS ORDERED: Naloxone 0.4 MG/ML SDV IV PRN (11:00)
[2020-11-15] MEDS ORDERED: Albuterol/Ipratropium 3.0-0.5 MG/3 ML Neb Soln INH PRN (11:00)
[2020-11-15] MEDS: HYDROmorphone/Normal Saline 15 MG/30 ML PCA IV PRN (11:08)
[2020-11-15] MEDS: Dextrose 5%-Lactated Ringers 1,000 ML IV SCH ×2 (11:18→23:58)
[2020-11-15] MEDS: Albuterol/Ipratropium 3.0-0.5 MG/3 ML Neb Soln INH SCH ×3 (11:22→20:04)
[2020-11-15] MEDS ORDERED: Scopolamine 1.5 MG Transdermal Patch TOP SCH (11:30)
[2020-11-15] MEDS: SCOPOLAMINE PATCH CHECK TOP SCH (13:51)
[2020-11-15] MEDS: cefOXitin 2 GM in Sodium Chloride 0.9% 50 ML IV SCH ×2 (13:51→19:34)
[2020-11-15] MEDS: Acetaminophen 500 MG Tab PO SCH ×2 (14:34→21:04)
[2020-11-15] MEDS: Pantoprazole 40 MG Vial IVPUSH SCH (14:34)
[2020-11-15] MEDS: MVI, Adult with Vitamin K 10 ML, Thiamine 200 MG, Zinc/Copper/Manganese/Selenium 1 ML i... IV SCH ×4 (16:31)
[2020-11-15] MEDS: ENTRESTO PO SCH (20:05)
[2020-11-15] MEDS: Ondansetron 4 MG/2 ML SDV IVPUSH PRN (20:09)
[2020-11-16] MEDS: cefOXitin 2 GM in Sodium Chloride 0.9% 50 ML IV SCH ×4 (01:57→20:22)
[2020-11-16] MEDS ORDERED: Iopamidol 612 MG/ML 50 ML SDV PO STA (03:36)
[2020-11-16] MEDS: Acetaminophen 500 MG Tab PO SCH ×3 (05:40→22:26)
[2020-11-16] MEDS: Albuterol/Ipratropium 3.0-0.5 MG/3 ML Neb Soln INH SCH ×4 (06:58→20:34)
[2020-11-16] MEDS: Formoterol/Mometasone 200-5 MCG 8.8 GM Inhaler IH SCH ×2 (08:28→20:26)
[2020-11-16] MEDS: valACYclovir 1,000 MG Tab PO SCH (08:56)
[2020-11-16] MEDS: Bisacodyl 5 MG Tab PO SCH ×2 (08:56→20:26)
[2020-11-16] MEDS: PARoxetine 20 MG Tab PO SCH (08:57)
[2020-11-16] MEDS: Enoxaparin 100 MG/1 ML Syringe SUBCUT SCH (08:57)
[2020-11-16] MEDS: Aspirin 81 MG Tab.Chew PO SCH (08:57)
[2020-11-16] MEDS: Docusate Sodium 100 MG Cap PO SCH ×2 (08:58→20:26)
[2020-11-16] MEDS: SCOPOLAMINE PATCH CHECK TOP SCH (08:59)
[2020-11-16] MEDS: ENTRESTO PO SCH ×2 (08:59→20:27)
[2020-11-16] MEDS: Metoprolol Succinate 25 MG Tab.ER PO SCH (09:00)
[2020-11-16] MEDS: Pantoprazole 40 MG Vial IVPUSH SCH (13:30)
[2020-11-16] MEDS: MVI, Adult with Vitamin K 10 ML, Thiamine 200 MG, Zinc/Copper/Manganese/Selenium 1 ML i... IV SCH ×4 (17:01)
[2020-11-16] MEDS: Ondansetron 4 MG/2 ML SDV IVPUSH PRN (18:08)
[2020-11-16] MEDS ORDERED: Lidocaine 2% Jelly 10 ML Urojet MUCMEM ONE (18:33)
[2020-11-16] MEDS: Tamsulosin 0.4 MG Cap.ER PO SCH (20:27)
[2020-11-17] MEDS: Dextrose 5%-Lactated Ringers 1,000 ML IV SCH ×2 (01:13→20:52)
[2020-11-17] MEDS: Ondansetron 4 MG/2 ML SDV IVPUSH PRN ×2 (01:53→19:22)
[2020-11-17] MEDS: Acetaminophen 500 MG Tab PO SCH ×3 (05:24→21:02)
[2020-11-17] MEDS: Metoclopramide 10 MG/2 ML SDV IVPUSH PRN ×3 (05:28→20:36)
[2020-11-17] MEDS: Albuterol/Ipratropium 3.0-0.5 MG/3 ML Neb Soln INH SCH ×4 (07:19→20:48)
[2020-11-17] MEDS: Formoterol/Mometasone 200-5 MCG 8.8 GM Inhaler IH SCH ×2 (08:26→20:48)
[2020-11-17] MEDS: Metoprolol Succinate 25 MG Tab.ER PO SCH (08:42)
[2020-11-17] MEDS: Aspirin 81 MG Tab.Chew PO SCH (08:43)
[2020-11-17] MEDS: Bisacodyl 5 MG Tab PO SCH ×2 (08:43→20:47)
[2020-11-17] MEDS: valACYclovir 1,000 MG Tab PO SCH (08:43)
[2020-11-17] MEDS: Enoxaparin 100 MG/1 ML Syringe SUBCUT SCH (08:43)
[2020-11-17] MEDS: PARoxetine 20 MG Tab PO SCH (08:43)
[2020-11-17] MEDS: SCOPOLAMINE PATCH CHECK TOP SCH (08:44)
[2020-11-17] MEDS: ENTRESTO PO SCH ×2 (08:44→20:49)
[2020-11-17] MEDS: Docusate Sodium 100 MG Cap PO SCH ×2 (08:44→20:47)
[2020-11-17] MEDS ORDERED: Cyanocobalamin (Vitamin B12) 1,000 MCG/ML SDV IM ONE (09:00)
[2020-11-17] MEDS: Pantoprazole 40 MG Vial IVPUSH SCH (13:31)
[2020-11-17] MEDS: MVI, Adult with Vitamin K 10 ML, Thiamine 200 MG, Zinc/Copper/Manganese/Selenium 1 ML i... IV SCH ×8 (14:10→16:35)
[2020-11-17] MEDS: Tamsulosin 0.4 MG Cap.ER PO SCH (20:48)
[2020-11-18] MEDS: HYDROmorphone/Normal Saline 15 MG/30 ML PCA IV PRN (04:08)
[2020-11-18] MEDS: Acetaminophen 500 MG Tab PO SCH ×3 (06:22→22:22)
[2020-11-18] MEDS: Dextrose 5%-Lactated Ringers 1,000 ML IV SCH ×2 (06:26→22:25)
[2020-11-18] MEDS: Albuterol/Ipratropium 3.0-0.5 MG/3 ML Neb Soln INH SCH ×4 (07:14→20:22)
[2020-11-18] MEDS: PARoxetine 20 MG Tab PO SCH (08:09)
[2020-11-18] MEDS: LORazepam 0.5 MG Tab PO PRN ×3 (08:09→20:24)
[2020-11-18] MEDS: Formoterol/Mometasone 200-5 MCG 8.8 GM Inhaler IH SCH ×2 (08:10→20:19)
[2020-11-18] MEDS: ENTRESTO PO SCH ×2 (08:10→20:23)
[2020-11-18] MEDS: Aspirin 81 MG Tab.Chew PO SCH (08:10)
[2020-11-18] MEDS: Enoxaparin 100 MG/1 ML Syringe SUBCUT SCH (08:10)
[2020-11-18] MEDS: Docusate Sodium 100 MG Cap PO SCH ×2 (08:10→20:23)
[2020-11-18] MEDS: Bisacodyl 5 MG Tab PO SCH ×2 (08:10→20:22)
[2020-11-18] MEDS: Metoprolol Succinate 25 MG Tab.ER PO SCH (08:11)
[2020-11-18] MEDS: valACYclovir 1,000 MG Tab PO SCH (08:11)
--- NOTE | 2020-11-18 09:29 | PN ---
DATE OF SERVICE: 11/18/2020 SUBJECTIVE: reports his pain is controlled. His oral intake was 470. Terry catheter was removed, and prior to that he had 3250 output. MARIA ESTHER drain put out 100 mL of a light pink drainage. He has been afebrile, up, ambulating. Staff has noted an increase in anxiety. OBJECTIVE: GENERAL: David Hebert is a 74-year-old male. He is alert and orientated. VITAL SIGNS: TPR 96.6, 75, 16, blood pressure 119/75. HEENT: Negative. NECK: Supple. HEART: Regular rate and rhythm. LUNGS: Clear. ABDOMEN: Dressings dry and intact. Abdominal binder is on. MARIA ESTHER drain intact. EXTREMITIES: Without peripheral edema. ASSESSMENT: Diagnostic laparoscopy turned to laparotomy. 1. Esophagogastrectomy with Colleen-en-Y ET. 2. Repair of recurrent paraesophageal hernia. POSTOPERATIVE DIAGNOSES: Recurrent paraesophageal hernia with severe scarring of stomach and esophageal gastrojejunostomy. Date of procedure: 11/15/2020. Surgeon: Dagoberto Eagle MD. PLAN: 1. Ativan mg p.o. q.4 hours p.r.n. anxiety. 2. Ensure Clear q.i.d. and p.r.n. 3. Dietary consultation. 4. Step 2 gastric bypass diet without cereal. 5. Communication order: 3 med cups per hour, 1 every 20 minutes to assure adequate oral intake. 6. We will evaluate p.r.n. or in a.m. Tammi Delarosa PA-C /[id number]
--- NOTE | 2020-11-18 10:19 | CR ---
UGI Limited HISTORY: Postbariatric surgery FINDINGS: Patient swallowed water-soluble contrast. Upright views of the abdomen show no evidence of extravasation or obstruction. There is a surgical drain left upper quadrant. There is a small amount of free intraperitoneal air postop. IMPRESSION: Status post bariatric surgery No extravasation or obstruction seen
[2020-11-18] MEDS: Pantoprazole 40 MG Delayed-Release Granules 1 Packet PO SCH (12:14)
--- NOTE | 2020-11-18 15:01 | PN ---
DATE OF SERVICE: 11/17/2020 The patient has been afebrile with stable vital signs. Having some dysphagia likely related to some esophageal dysmotility. He is able to keep medications down. Plan will be order a step-2 diet without solids and Brodie today. He retained urine overnight and Terry catheter was placed. He has been getting his Flomax, and we will try getting the bladder catheter out tomorrow. Dagoberto Eagle MD /[id number]
[2020-11-18] MEDS: MVI, Adult with Vitamin K 10 ML, Thiamine 200 MG, Zinc/Copper/Manganese/Selenium 1 ML i... IV SCH ×4 (15:20)
--- NOTE | 2020-11-18 16:10 | PN ---
DATE OF SERVICE: 11/16/2020 The patient is postop day 1 from an esophagogastrectomy and closure of recurrent paraesophageal hernia for recurrent reflux disease, but clinically he has done well overnight. Upper GI looks good. We will restart his usual medications today. He reports already started on Entresto and Toprol yesterday. We will give some bowel stimulation clear liquid diet today, but add some Ensure Clear and then progress to more of a step-2 diet tomorrow. Dagoberto Eagle MD /[id number]
[2020-11-18] MEDS: Tamsulosin 0.4 MG Cap.ER PO SCH (20:23)
[2020-11-19] MEDS: Acetaminophen 500 MG Tab PO SCH (05:36)
[2020-11-19 06:58] VITALS: BP 126/75; PULSE 84
[2020-11-19] MEDS: Albuterol/Ipratropium 3.0-0.5 MG/3 ML Neb Soln INH SCH (07:10)
[2020-11-19] MEDS ORDERED: HYDROmorphone 2 MG Tab PO PRN (07:13)
[2020-11-19] MEDS ORDERED: Magnesium Hydroxide 400 MG/5 ML Susp 30 ML Cup PO ONE (07:30)
[2020-11-19] MEDS: Pantoprazole 40 MG Delayed-Release Granules 1 Packet PO SCH (08:04)
[2020-11-19] MEDS: Enoxaparin 100 MG/1 ML Syringe SUBCUT SCH (08:04)
[2020-11-19] MEDS: Bisacodyl 5 MG Tab PO SCH (08:04)
[2020-11-19] MEDS: LORazepam 0.5 MG Tab PO PRN (08:04)
[2020-11-19] MEDS: Aspirin 81 MG Tab.Chew PO SCH (08:04)
[2020-11-19] MEDS: Docusate Sodium 100 MG Cap PO SCH (08:04)
[2020-11-19] MEDS: ENTRESTO PO SCH (08:05)
[2020-11-19] MEDS: valACYclovir 1,000 MG Tab PO SCH (08:05)
[2020-11-19] MEDS: Metoprolol Succinate 25 MG Tab.ER PO SCH (08:05)
[2020-11-19] MEDS: PARoxetine 20 MG Tab PO SCH (08:05)
[2020-11-19] MEDS: Formoterol/Mometasone 200-5 MCG 8.8 GM Inhaler IH SCH (08:08)
[2020-11-19] MEDS ORDERED: Warfarin 5 MG Tab PO ONE (09:00)
--- NOTE | 2020-11-19 09:22 | DISCH ---
ADMISSION DIAGNOSES: Gastroesophageal reflux disease refractory to medical management, anxiety, asthma, dyslipidemia, ejection fraction 39% to 40%, environmental allergies, history of deep venous thrombosis, chronic low back pain, essential hypertension, and chronic systolic congestive heart failure. DISCHARGE DIAGNOSES: Diagnostic laparoscopy turned to laparotomy for: 1. Esophagogastrectomy with Colleen-en-Y. 2. Repair of recurrent paraesophageal hernia. POSTOPERATIVE DIAGNOSES: 1. Recurrent paraesophageal hernia with severe scarring of stomach and esophagogastrojejunostomy. 2. Date of procedure: 11/15/2020. Surgeon: Dagoberto Eagle MD. HISTORY: David Hebert is a 74-year-old male who is status post Lalitha fundoplication with continued GERD, refractory to medical management and surgical procedure. After preoperative evaluation and discussion of possible risks and possible complications, he wished to proceed with surgical procedure. HOSPITAL COURSE: had his surgery on 11/15/2020. He had no operative complications. On postoperative day #1, he was started on Lovenox, his home medication, IV was decreased. He was given Ensure 3 times a day and bowel stimulation. On postoperative day 2, he was started on step 2 gastric bypass diet with no cereal. Terry was discontinued, but had to be put back in later that day. On postoperative day 3, Terry was discontinued. He was started on Ativan 0.5 mg for anxiety and nausea. He was given 3 med cups to gradually increase oral intake, and on postoperative day 4, he was able to be discharged to home without any complications. He had adequate dietary instruction. OBJECTIVE: GENERAL: David Hebert is a pleasant 74-year-old male, height is 5 feet 11 inches, weight is 188 pounds. BMI is 26. VITAL SIGNS: TPR is 97.7, 84, and 18. Blood pressure 126/75. HEENT: Negative. NECK: Supple. HEART: Regular rate and rhythm. LUNGS: Clear. ABDOMEN: Dressings dry and intact. Aquacel dressing is on. Abdominal binder is on. EXTREMITIES: Without peripheral edema. DISPOSITION: Discharged to home. CONDITION: Stable and improving. HOME MEDICATION: 1. Ativan 0.5 mg p.o. q.6 hours p.r.n. anxiety, #20. 2. Colace 100 mg p.o. b.i.d., #60. 3. Dilaudid 2 mg every 4 hours p.r.n. pain, #30. 4. Dulcolax 10 mg tabs p.o. b.i.d., #30. 5. Zofran ODT 4 mg q.6 hours p.r.n. nausea. He is to resume his home medication: 1. Tylenol 1000 mg every 8 hours p.r.n. 2. Valacyclovir 1000 mg p.o. daily. 3. Coumadin 5 mg p.o. daily. 4. Flomax 0.4 mg p.o. daily. 5. Simvastatin 40 mg at bedtime. 6. Entresto 49/51 mg, 1 tablet b.i.d. 7. Pantoprazole 40 mg p.o. b.i.d. 8. Paxil 10 mg p.o. daily. 9. Metoprolol-XL 25 mg p.o. daily. 10.Flonase 2 sprays in each nostril once daily. 11.Advair 250/50 Diskus 1 puff inhalation b.i.d. 12.Diprolene 0.5% lotion 1 applicator topical b.i.d. 13.Aspirin 81 mg p.o. daily. 14.DuoNeb 3 mL inhalation every 4 hours p.r.n. wheezing. 15.Albuterol inhaler 2 puffs every 4 hours p.r.n. wheezing. 16.Dulcolax. FOLLOWUP APPOINTMENTS: With Dagoberto Eagle MD, on 11/27/2020 at 10 a.m. DIET: Step 2 gastric bypass diet without cereal. Drink 8 to 10 glasses of water a day. ACTIVITY: Walk 6 times daily inside your home. No lifting greater than 10 pounds for 6 weeks. INSTRUCTIONS: Incision care: Wear abdominal binder for 6 weeks if tolerated. Take off Aquacel dressing in 3 days, on Wednesday11/22/2020. Shower: May shower. Drive: Do not drive for 1 week. SPECIAL INSTRUCTIONS: Use incentive spirometer 10 times every hour while awake for 1 week. /[id number]
--- NOTE | 2020-11-27 11:32 | OR ---
DATE OF PROCEDURE: 11/15/2020 SURGEON: Dagoberto Eagle MD PREOPERATIVE DIAGNOSIS: Recurrent gastroesophageal reflux disease associated with chronic paraesophageal diaphragmatic hernia. POSTOPERATIVE DIAGNOSES: 1. Recurrent gastroesophageal reflux disease associated with chronic paraesophageal diaphragmatic hernia. 2. Severe scarring and distortion of stomach and esophagogastric junction necessitating resectional procedure. OPERATIVE PROCEDURES: Diagnostic laparoscopy converted to laparotomy with: 1. Esophagogastrectomy with Colleen-en-Y esophagojejunostomy (70161). 2. Repair of recurrent paraesophageal diaphragmatic hernia (37496). ANESTHESIA: General. RECEPTION INTERVIEWER: Tammi Delarosa PA-C. INDICATIONS FOR PROCEDURE: A 74-year-old presenting with quite severe recurrent gastroesophageal reflux disease, status post previous Lalitha fundoplication. Recent endoscopy showed recurrence of the hiatal hernia and active inflammation in the area of the distal esophagus. Plan is to proceed with a diagnostic laparoscopy, laparotomy if necessary. We will inspect the area of the previous fundoplication and if it is feasible we will take this down and redo of fundoplication along with hiatal hernia repair that would be undertaken. If there is severe scarring and distortion at the area around the esophagogastric junction and fundoplication, resectional procedure may be warranted to be sure that we are able to control the reflux symptoms. Potential risks of the procedure including bleeding, infection, leaks from GI tract closures, problems with recurrence of the reflux over time, ongoing dysphagia, disorders of gastric emptying rate, and increased reflux symptoms were all reviewed along with the possibility of cardiopulmonary, septic, or hemorrhagic complications leading to , and the patient wishes to proceed. DETAILS OF PROCEDURE: The patient was taken to the operating room, and after general endotracheal anesthesia was induced, he was placed in a lithotomy position, Terry catheter was inserted, and the abdomen prepped and draped. 15 cm inferior and 5 cm left of the xiphoid process, a transverse incision was made, the peritoneal cavity entered under direct vision with an Optiview trocar inflated to 15 mmHg pressure with CO2. 5 mm trocars were then placed in the left subcostal area, right mid abdomen, and in the xiphoid area. Bilateral transversus abdominis plane blocks were then placed. The liver was then retracted. Initial dissection revealed large paraesophageal hernia to have occurred. As the dissection proceed, it became evident that this tissue is very thinned out and friable in the area of esophagogastric junction, previous fundoplication, and it would be safe to proceed with a resectional procedure. Trocars were removed and the upper midline incision was made, carried to the full-thickness abdominal wall. At this point, some additional adhesions between the liver and the area of the fundoplication and recurrent hiatal hernia were taken down and the liver was retracted medially. This allowed cautery dissection around the area of the edges of hiatal hernia and eventual reduction of the esophagus and previous fundoplication into the intraabdominal location. The diaphragmatic hernia was then closed at this point with some 0 Ethibond sutures reinforced with PTFE pledgets. The stomach was then opened and an anvil of a 28 mm EEA stapler was then passed into what was fairly dilated distal esophagus. The area just above the esophagogastric junction was then divided with MAN black loads removing some of the distal esophagus. The area of gastrotomy and previous fundoplication were then resected with a series of MAN black and purple loads as well and specimen consisting of the esophagogastrectomy and previous fundoplication were then delivered from the field. At this point, the anvil of the EEA stapler system which was located in the esophagus was brought out through the end of the esophagus just posterior of the staple line. The Colleen limb was then fashioned with the small bowel being divided 30 cm distal to the ligament of Treitz. This was then traced out 80 cm further distally where the [id number] enteroenterostomy was accomplished with internal firing of the Endo-MAN 60 mm stapler. Common opening was then closed transversely with the same stapler and angles anastomosed and mesenteric defect approximated with some 3-0 Vicryl stitch. The opening made bluntly in the avascular portion of the transverse mesocolon. This came up nicely to the area of the divided esophagus without tension. The Colleen limb was then opened and main body of EEA stapler passed few centimeters within the small bowel, brought up the anvil united with it thus creating the esophagojejunostomy. Upon removal of the stapler, double donuts of mucosa were noted within it. Of note, the proximal ring of tissue was consistent with esophageal mucosa confirming that an esophagogastrectomy had been performed. The small bowel was closed off with a MAN stapler and the esophagojejunostomy was then reinforced with some 3-0 Vicryl seromuscular stitch over the anterior 2/3rd of the anastomosis. The area was irrigated with antibiotic-containing saline solution and the esophagojejunostomy was reinforced with some fibrin sealant. Point where the small bowel passed through the transverse mesocolon was then reinforced with some 3-0 Vicryl seromuscular stitch to limit chances of hernia formation through that defect. Single Wesley-Sanchez drain was then placed through the left lateral trocar site and positioned adjacent to the esophagojejunostomy, from there up into the splenic fossa. The midline fascia was then approximated with #2 Vicryl stitch, subcutaneous tissue with some 4-0 Vicryl stitch, and the skin with giovanna. Dressing was applied. The patient was taken to the recovery room in satisfactory condition. Physician assistant professor of geography, Tammi Delarosa PA-C, played an essential role in assisting in this case helping to position the patient, retract structures as needed, as well as suturing and cutting sutures when indicated. Her presence improved patient safety and decreased operative time. Dagoberto Eagle MD /[id number]
== END 2020-11-19 09:44 | disposition home or self-care (01) | DRG 327 ==
LOC: JP.SDSSCHI 05:32 → JP.SDS 05:32 → JP.MS 09:50 → EDSTATUS 13:15
PROVIDERS: ADMIT Surgery; ATTEND Surgery
PROC: 0D150ZA Bypass Esophagus to Jejunum, Open Approach (ICD-10-PCS; principal; 2020-11-15)
PROC: 0DB60ZZ Excision of Stomach, Open Approach (ICD-10-PCS; 2020-11-15)
PROC: 0DB50ZZ Excision of Esophagus, Open Approach (ICD-10-PCS; 2020-11-15)
PROC: 0BQT0ZZ Repair Diaphragm, Open Approach (ICD-10-PCS; 2020-11-15)
PROC: 0DJ04ZZ Inspection of Upper Intestinal Tract, Percutaneous Endoscopic Approach (ICD-10-PCS; 2020-11-15)
DX: K21.9 Gastro-esophageal reflux disease without esophagitis (principal); K44.0 Diaphragmatic hernia with obstruction, without gangrene; I50.22 Chronic systolic (congestive) heart failure; F41.9 Anxiety disorder, unspecified; E78.5 Hyperlipidemia, unspecified; M54.5 Low back pain; G89.29 Other chronic pain; I11.0 Hypertensive heart disease with heart failure; Z96.659 Presence of unspecified artificial knee joint; I25.10 Atherosclerotic heart disease of native coronary artery without angina pectoris; N40.1 Benign prostatic hyperplasia with lower urinary tract symptoms; J45.20 Mild intermittent asthma, uncomplicated; R35.1 Nocturia; Z86.718 Personal history of other venous thrombosis and embolism; Z91.012 Allergy to eggs; Z91.010 Allergy to peanuts; Z88.6 Allergy status to analgesic agent; Z91.09 Other allergy status, other than to drugs and biological substances; Z79.01 Long term (current) use of anticoagulants; Z79.82 Long term (current) use of aspirin; Z79.899 Other long term (current) drug therapy; Z79.51 Long term (current) use of inhaled steroids
CPT/HCPCS: 36415; 51702; 74240; 74240-26; 80053; 83735; 83880; 84100; 85025; 85610; 86850; 86900; 86901; 88307; 93005; 94640; 94762; A9270-GY; C9113; J0171; J0330; J0694; J1100; J1170; J1650; J2185; J2405; J2704; J2710; J2765; J2795; J3010; J3410; J3411; J3420; J3490; J7121; J7620-GY; Q9967

== ENCOUNTER 2020-12-27 09:17 | Day surgery (SDC) | payer MEDICARE ==
[~2020-12-27 09:17] MED LIST changes: -Bupivacaine 0.5%/EPINEPHrine 1:200,000 50 ML MDV ONE; -Meropenem 500 MG SDV ONE; +Propofol 200 MG/20 ML SDV ONE; +fentaNYL 100 MCG/2 ML SDV ONE
[2020-12-27] MEDS ORDERED: Cyanocobalamin (Vitamin B12) 1,000 MCG/ML SDV IM ONE (10:00)
[2020-12-27] MEDS ORDERED: Albuterol/Ipratropium 3.0-0.5 MG/3 ML Neb Soln NEB ONE (10:00)
[2020-12-27] MEDS ORDERED: MVI, Adult with Vitamin K 10 ML, Thiamine 200 MG, Chromium/Copper/Mang/Selen/Zn 1 ML in... IV ONE ×4 (10:00)
[2020-12-27] MEDS ORDERED: Midazolam 1 MG/ML 2 ML SDV ONE (12:22)
[2020-12-27 13:28] VITALS: BP 130/95; PULSE 77
--- NOTE | 2021-01-17 13:08 | OR ---
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 OPERATIVE PROCEDURE: Upper GI endoscopy with dilation of esophagojejunostomy (93558) ANESTHESIA: IV sedation. INDICATIONS FOR PROCEDURE: A 75-year-old male, presenting with some bowel wall stricturing at esophagojejunostomy and some dysphagia referable to esophagus and some difficulty in managing certain solid foods. He does have dilated, somewhat tortuous distal esophagus as well, and this along with probable stricturing is contributing to the patient's symptoms. Plan is to proceed with upper GI endoscopy with dilation as indicated. Potential risks including bleeding and perforation were discussed, and the patient wishes to proceed. DETAILS OF PROCEDURE: The patient was taken to the operating room, placed in a left lateral decubitus position. IV sedation was administered, after which the upper GI endoscope was passed orally through the length of the esophagus into the level of the esophagojejunostomy. This was noted to be moderately strictured. This was associated with some scarring but also quite a bit in the way of subcu edema. Bard gastrointestinal catheter was centered across the anastomosis and inflated to 36-Macedonian size. This was held in position for 1 minute, after which the balloon catheter was deflated and withdrawn. The scope could not be passed through the esophagojejunostomy initially, now could easily be passed through that anastomosis. No complications were evident. Procedure was concluded. The patient was taken to the recovery room in satisfactory condition. Dagoberto Eagle MD /[id number]
== END 2020-12-27 14:13 | disposition home or self-care (01) ==
LOC: JP.SDS 09:17
PROVIDERS: ATTEND Surgery
DX: K22.2 Esophageal obstruction (principal); K22.8 Other specified diseases of esophagus; I11.0 Hypertensive heart disease with heart failure; I50.20 Unspecified systolic (congestive) heart failure; I25.10 Atherosclerotic heart disease of native coronary artery without angina pectoris; J45.909 Unspecified asthma, uncomplicated; G47.33 Obstructive sleep apnea (adult) (pediatric); Z91.012 Allergy to eggs; Z91.010 Allergy to peanuts; Z91.018 Allergy to other foods; Z88.6 Allergy status to analgesic agent
CPT/HCPCS: 36415; 80053; 82728; 83735; 84100; 85027; 94640; J2250; J2704; J3010; J3411; J3420; J7120; J7620-GY

== ENCOUNTER 2021-01-30 08:41 | Day surgery (SDC) | payer MEDICARE ==
[2021-01-30] MEDS ORDERED: MVI, Adult with Vitamin K 10 ML, Zinc/Copper/Manganese/Selenium 1 ML, Thiamine 100 MG i... IV ONE ×4 (09:30)
[2021-01-30] MEDS ORDERED: Albuterol/Ipratropium 3.0-0.5 MG/3 ML Neb Soln NEB ONE (09:50)
[2021-01-30] MEDS ORDERED: fentaNYL 100 MCG/2 ML SDV ONE (10:19)
[2021-01-30] MEDS ORDERED: Propofol 200 MG/20 ML SDV ONE (10:19)
[2021-01-30 12:25] VITALS: BP 106/68; PULSE 71
--- NOTE | 2021-02-09 15:11 | OR ---
DATE OF PROCEDURE: 01/30/2021 SURGEON: Dagoberto Eagle MD PREOPERATIVE DIAGNOSIS: Persistent dysphagia referable to esophagojejunal anastomosis. POSTOPERATIVE DIAGNOSIS: Mild stricture at esophagojejunal anastomosis. OPERATIVE PROCEDURE: Upper gastrointestinal endoscopy with dilation of esophagojejunal anastomosis (58100). ANESTHESIA: IV sedation. INDICATION FOR PROCEDURE: A 75-year-old status post esophagogastrectomy for recurrent gastroesophageal reflux disease following a previous Lalitha fundoplication. He has had some persistent problems with dysphagia and some continued weight loss. Plan is to proceed with upper GI endoscopy with dilation as indicated. Potential risks including bleeding and perforation were discussed, and the patient wishes to proceed. DETAILS OF PROCEDURE: The patient was taken to the operating room and placed in a left lateral decubitus position. IV sedation was administered, after which the upper GI endoscope was passed orally through the length of the esophagus and into the area of the esophagojejunal anastomosis and from there roughly 20 cm into the Colleen limb. Findings included normal hypopharynx, larynx, upper esophageal sphincter, and esophageal body. At the EG junction, there was some mild dilation of the distal esophagus. The esophagojejunal anastomosis, however, was quite patent with the gastroscope easily then being passed through the area. There was no significant mucosal inflammation present and the remainder of the Colleen limb visualized was unremarkable. At this point, gastrointestinal catheter was centered across the anastomosis and inflated to 45-Belarusian size as well as modest amount of additional dilation, and the procedure then concluded. The patient was taken to the recovery room in satisfactory condition. Overall, the patient has a patent esophagojejunal anastomosis although somewhat narrowed. I suspect much of the symptoms have to do with element of esophageal dysmotility. This was evident on the postoperative upper GI x-ray where there was a tortuosity of the distal esophagus. The patient will be receiving some additional dietary counseling in terms of maintenance with adequate caloric and protein intake. We will see him back in roughly 10 days for recheck. Dagoberto Eagle MD /[id number]
== END 2021-01-30 13:30 | disposition home or self-care (01) ==
LOC: JP.SDS 08:41
PROVIDERS: ATTEND Surgery
DX: K91.89 Other postprocedural complications and disorders of digestive system (principal); K22.2 Esophageal obstruction; J45.909 Unspecified asthma, uncomplicated; G47.33 Obstructive sleep apnea (adult) (pediatric); I11.0 Hypertensive heart disease with heart failure; I50.9 Heart failure, unspecified; E78.5 Hyperlipidemia, unspecified; Z98.0 Intestinal bypass and anastomosis status; Z98.84 Bariatric surgery status
CPT/HCPCS: 43249; 94640; J2704; J3010; J3411; J7620-GY

== ENCOUNTER 2021-02-14 07:09 | Day surgery (SDC) | payer MEDICARE ==
[2021-02-14] MEDS ORDERED: Neostigmine Methylsulfate 1 MG/ML 5 ML Syringe ONE (07:10)
[2021-02-14] MEDS ORDERED: Propofol 200 MG/20 ML SDV ONE ×2 (07:10→07:26)
[2021-02-14] MEDS ORDERED: Ondansetron 4 MG/2 ML SDV ONE ×2 (07:10→08:51)
[2021-02-14] MEDS ORDERED: Succinylcholine 200 MG/10 ML MDV ONE (07:10)
[2021-02-14] MEDS ORDERED: fentaNYL 250 MCG/5 ML SDV ONE (07:10)
[2021-02-14] MEDS ORDERED: Dexamethasone 4 MG/ML SDV ONE ×2 (07:10→08:51)
[2021-02-14] MEDS ORDERED: Rocuronium 50 MG/5 ML Vial ONE (07:10)
[2021-02-14] MEDS ORDERED: Glycopyrrolate 0.2 MG/ML 5 ML MDV ONE (07:10)
[2021-02-14] MEDS ORDERED: Albuterol/Ipratropium 3.0-0.5 MG/3 ML Neb Soln NEB ONE (07:21)
[2021-02-14] MEDS ORDERED: Scopolamine 1.5 MG Transdermal Patch TOP ONE (07:22)
[2021-02-14] MEDS ORDERED: fentaNYL 100 MCG/2 ML SDV ONE (07:26)
[2021-02-14] MEDS ORDERED: Dextrose 5%-Lactated Ringers 1,000 ML IV SCH (08:00)
[2021-02-14] MEDS ORDERED: Ondansetron 4 MG Tab.DIS PO PRN (10:26)
[2021-02-14] MEDS ORDERED: Albuterol/Ipratropium 3.0-0.5 MG/3 ML Neb Soln INH PRN (10:44)
[2021-02-14] MEDS ORDERED: VERIFY SCOP PATCH TOP SCH (12:00)
[2021-02-14] MEDS: Pantoprazole 40 MG Tab.CR PO SCH (12:08)
[2021-02-14] MEDS ORDERED: Warfarin 5 MG Tab PO SCH (13:00)
[2021-02-14] MEDS ORDERED: MVI, Adult with Vitamin K 10 ML, Zinc/Copper/Manganese/Selenium 1 ML, Thiamine 100 MG i... IV ONE ×4 (16:00)
[2021-02-14] MEDS: Nystatin Susp 100,000 Unit/ML 5 ML UD Cup PO SCH ×2 (16:29→21:43)
[2021-02-14] MEDS ORDERED: Tamsulosin 0.4 MG Cap.ER PO SCH (21:00)
[2021-02-14] MEDS ORDERED: [UNRECOGNIZED DRUG - OTHER] PO SCH (21:00)
[2021-02-14] MEDS ORDERED: atorvaSTATin 20 MG Tab PO SCH (21:00)
[2021-02-14] MEDS: ADVIAR INH SCH (21:43)
[2021-02-14] MEDS ORDERED: diphenhydrAMINE 25 MG Cap PO PRN (21:54)
[2021-02-15] MEDS ORDERED: Metoprolol Succinate 25 MG Tab.ER PO SCH (09:00)
[2021-02-15] MEDS ORDERED: Aspirin 81 MG Tab.EC PO SCH (09:00)
[2021-02-15] MEDS ORDERED: PARoxetine 20 MG Tab PO SCH ×2 (09:00)
[2021-02-15] MEDS ORDERED: Fluticasone Propionate Nasal Spray 16 GM Bottle NASBOTH SCH (09:00)
[2021-02-15] MEDS ORDERED: valACYclovir 1,000 MG Tab PO SCH (09:00)
[2021-02-15 09:10] VITALS: BP 106/70; PULSE 69
[2021-02-15] MEDS: Nystatin Susp 100,000 Unit/ML 5 ML UD Cup PO SCH (09:11)
[2021-02-15] MEDS: Pantoprazole 40 MG Tab.CR PO SCH (09:11)
[2021-02-15] MEDS: ADVIAR INH SCH (09:12)
[2021-02-15] MEDS ORDERED: Scopolamine 1.5 MG Transdermal Patch TRDERM STA (09:18)
--- NOTE | 2021-02-17 15:16 | DISCH ---
FINAL DIAGNOSES: 1. Persistent dysphagia status post esophagogastrectomy with Colleen-en-Y conversion. 2. History of congestive heart failure. 3. History of deep venous thrombosis. 4. Obstructive sleep apnea, on CPAP. 5. Hypertension. 6. Asthma. OPERATIVE PROCEDURE: Upper gastrointestinal endoscopy with placement of esophagogastric jejunal stent that was done on 02/14/2021. SUMMARY: This is a 75-year-old male presenting with some ongoing dysphagia. He is status post esophagogastrectomy. Upper endoscopy does show a small amount of gastric mucosa at the anastomosis, but the anastomosis basically right at the cuff of the esophagogastric junction. Appears to have some persistent dysphagia. Appears to have probably some element of esophageal motility disorder as even with the area being fairly wide open, he has trouble maintaining a liquid diet. He had a stent placed on the date of admission. This was then dilated up to 45-Japanese size, and on x-ray was quite wide open, appeared to be well seated both by x-ray and endoscopy. Overnight, he complained of some discomfort in that area, but generally appears to be fairly mild. He did have a single episode of some nausea which was controlled with Zofran. He will be discharged home with a liquid diet for 5 days and then try some soft solids and staying in an upright position for half hour or so after oral intake to minimize aspiration risk. He will be sent home with Zofran 4 mg ODT q.4 hours p.r.n. pain, #30, refill x2 and scopolamine patch which I would be removing in 3 days, and then follow up with Dr. Eagle at [facility] on 02/26/2021 with Dietary to see the patient at that time as well. He was given a dietary log book to keep some record to what does well and does not do well in terms of postoperative cramping and such, and also was instructed that for dietary supplements, use diabetic supplement such as Glucerna or the BOOST diabetic formula to limit the amount of sugar, but at the same time maintain good calorie intake. /[id number]
--- NOTE | 2021-02-21 13:12 | OR ---
DATE OF PROCEDURE: 02/14/2021 SURGEON: Dagoberto Eagle MD PREOPERATIVE DIAGNOSIS: Persistent dysphagia status post esophagogastrectomy. POSTOPERATIVE DIAGNOSES: 1. Persistent dysphagia status post esophagogastrectomy. 2. 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 PROCEDURES PERFORMED: Upper gastrointestinal endoscopy with: 1. Dilation of esophagogastric junction. 2. Placement of covered stent overlying distal esophagus and esophagogastric junction (40415). ANESTHESIA: IV sedation. INDICATIONS FOR PROCEDURE: This is a 75-year-old status post esophagogastrectomy for recurrent gastroesophageal reflux disease following a previous Lalitha fundoplication. He has had problems with persistent dysphagia and increasingly problematic malnutrition. Plan is to proceed with an upper endoscopy with stent placement to hopefully allow him to begin taking in more significant amounts of oral intake. The potential risks including bleeding and perforation were discussed, and the patient wishes to proceed. DETAILS OF PROCEDURE: The patient was taken to the operating room and placed in a left lateral decubitus position. IV sedation was administered after which the upper GI endoscope was passed orally through the length of the esophagus and into the area of the proximal jejunal anastomosis. The patient was noted to have a small cuff of some gastric tissue remaining. Otherwise, the scope was easily passed into the [place]. There was significant fungal overgrowth of the proximal half of the esophagus. Otherwise, the area of the distal esophagus and esophagogastric jejunostomy was wide open, i.e., there was no mechanical obstruction present. At this point, a wire was then placed into the [place] limb roughly 20 cm distal to the jejunal anastomosis and the gastric scope then withdrawn, leaving the wire in place. Over this, then a 120 cm covered stent with a central neck of 23 mm was centered across the anastomosis with fluoroscopic surveillance and deployed there. Upon completion of that, then the scope was then placed back into the area to expand the neck somewhat further. A 45-Maltese balloon was then inflated across the central aspect of the stent which did result in a significant increase in the diameter at that level. The scope was then withdrawn. There were no evident complications. The patient will be admitted overnight to make sure controlling nausea satisfactorily and oral intake is able to be resumed satisfactorily as well. We will start the patient on Mycostatin swish and swallow 5-day course of that as well. Dagoberto Eagle MD /[id number]
== END 2021-02-15 09:35 | disposition home or self-care (01) ==
LOC: JP.SDS 07:09 → JP.MS 09:10 → JP.SDS 02-15 09:35
PROVIDERS: ATTEND Surgery
DX: R13.10 Dysphagia, unspecified (principal); B37.81 Candidal esophagitis; I11.0 Hypertensive heart disease with heart failure; G47.33 Obstructive sleep apnea (adult) (pediatric); J45.909 Unspecified asthma, uncomplicated; I50.22 Chronic systolic (congestive) heart failure; N40.1 Benign prostatic hyperplasia with lower urinary tract symptoms; R35.1 Nocturia; E78.5 Hyperlipidemia, unspecified; I25.10 Atherosclerotic heart disease of native coronary artery without angina pectoris; Z87.891 Personal history of nicotine dependence; Z91.010 Allergy to peanuts; Z98.84 Bariatric surgery status; Z79.899 Other long term (current) drug therapy; Z79.01 Long term (current) use of anticoagulants; Z91.012 Allergy to eggs; Z88.8 Allergy status to other drugs, medicaments and biological substances; Z98.890 Other specified postprocedural states
CPT/HCPCS: 36415; 43266; 83735; 83880; 84100; 85610; 94640; A9270; C1874; J1100; J1790; J2405; J2704; J3010; J3411; J7121; J0330; J2710; J3490; J7620-GY

== ENCOUNTER 2021-02-18 14:32 | Emergency (ER) | payer MEDICARE ==
[2021-02-18 15:13] VITALS: BP 99/67; PULSE 78
[2021-02-18] MEDS ORDERED: Sodium Chloride 0.9% 10 ML Syringe FLUSH PRN (15:30)
[2021-02-18] MEDS ORDERED: Nitroglycerin 0.4 MG Tab.SL SL PRN (15:30)
[2021-02-18] MEDS ORDERED: Morphine 4 MG/ML Syringe IVPUSH PRN (15:30)
[2021-02-18] MEDS ORDERED: Aspirin 81 MG Tab.Chew PO ONE (15:30)
[2021-02-18] MEDS ORDERED: Lactated Ringers 1,000 ML IV ONE ×2 (15:35→17:14)
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
[2021-02-18] MEDS ORDERED: Sodium Chloride 0.9% 100 ML IV SCH (18:15)
[2021-02-18] MEDS ORDERED: Iopamidol 755 Mg/ML 100 ML Bottle IV SCH (18:15)
--- NOTE | 2021-02-18 20:10 | CRLCT ---
For Patients: As a result of the Century Cures Act, medical imaging exams and procedure reports are released immediately into your electronic medical record. You may view this report before your referring provider. If you have questions, please contact your health care provider. INDICATION: Shortness of breath with elevated D-dimer. COMPARISON: CT pulmonary angiogram from 08/04/2017 TECHNIQUE: CT examination of the chest was performed with the uneventful intravenous administration of 100 cc of Isovue 370 while 2 mm thick axial sections were obtained through the pulmonary arteries. Please note that all CT scans at this facility use dose modulation, iterative reconstruction, and/or weight-based dosing when appropriate to reduce radiation dose to as low as reasonably achievable. FINDINGS: : There is no sign of pulmonary embolism, with normal enhancement and branching of the pulmonary arteries. There is increased mild patchy atelectasis in the posterior lung bases, left greater than right. The lungs are otherwise clear with no sign of significant infiltrate or mass. There is no sign of mediastinal or hilar mass or adenopathy. There is moderate triple-vessel coronary calcification, similar in appearance to the previous study. The heart is otherwise normal in appearance for the patient`s age. There is age appropriate appearance of the thoracic aorta and ascending great vessels. There is no sign of supraclavicular or axillary mass or adenopathy. The visualized superior liver, spleen, pancreas, left kidney, and adrenals are normal in appearance. There is a cyst in the interpolar region of the right kidney measuring at least 5.2 x 4.4 centimeters. The cyst is not completely examined on today`s study. During the interval, a stent has been placed across the moderate-sized hiatal hernia. There appear to be new changes of partial gastrectomy with a patent esophagojejunostomy adjacent to the distal end of the stent. There is no sign of gastric outlet obstruction. A small bowel anastomosis is seen in the left upper quadrant with no sign of any structure. There is moderate disc degenerative disease throughout the inferior thoracic spine. Again seen is mild scoliosis of the thoracic spine convex towards the right. IMPRESSION: No sign of pulmonary embolism. Increase in mild patchy atelectasis in the posterior lung bases, right greater than left. Stable moderate triple-vessel coronary calcification. New placement of a metallic stent across the moderate-sized hiatal hernia. New changes of partial gastrectomy with patent gastrojejunostomy. Please note that all CT scans at this facility use dose modulation, iterative reconstruction, and/or weight-based dosing when appropriate to reduce radiation dose to as low as reasonably achievable. Dictated by Joel Wallace MD @ 02/18/2021 8:08:[address] Joel Wallace @ Feb 18 2021 8:08PM
--- NOTE | 2021-02-20 08:58 | CR ---
CHEST: Portable 02/18/2021 at 4:21 PM CLINICAL HISTORY:Chest pain COMPARISON:CT 02/07/2020 FINDINGS: Heart size and pulmonary vascular normal. Lungs are emphysematous. No infiltrates are seen. There are atherosclerotic changes in the aorta.. There is a distal esophageal stent in place. Impression: Emphysematous changes No acute cardiopulmonary process Distal esophageal stent
== END 2021-02-18 20:41 | disposition home or self-care (01) ==
LOC: JP.ED 14:32
DX: R07.9 Chest pain, unspecified (principal); E78.00 Pure hypercholesterolemia, unspecified; I10 Essential (primary) hypertension; Z79.01 Long term (current) use of anticoagulants; Z79.899 Other long term (current) drug therapy; Z91.012 Allergy to eggs; Z91.018 Allergy to other foods; Z91.010 Allergy to peanuts; Z88.5 Allergy status to narcotic agent; Z91.09 Other allergy status, other than to drugs and biological substances
CPT/HCPCS: 36415; 71045; 71275; 80053; 83605; 83880; 84484; 85025; 85379; 85610; 93005; 99285; A9270; J7120; Q9967

== ENCOUNTER 2021-04-21 11:20 | Inpatient (IN) | payer MEDICARE ==
[2021-04-21] MEDS ORDERED: Ondansetron 4 MG/2 ML SDV IVPUSH ONE (11:53)
[2021-04-21] MEDS ORDERED: Morphine 2 MG/ML SYRINGE IVPUSH ONE (11:54)
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
[2021-04-21] MEDS ORDERED: Sodium Chloride 0.9% 1,000 ML IV SCH (12:00)
[2021-04-21] MEDS ORDERED: Sodium Chloride 0.9% 10 ML Syringe FLUSH ONE (13:26)
[2021-04-21] MEDS ORDERED: Iopamidol 612 MG/ML 100 ML Bottle IV SCH (13:30)
[2021-04-21] MEDS ORDERED: Sodium Chloride 0.9% 75 ML IV SCH (13:30)
--- NOTE | 2021-04-21 14:48 | CT ---
Abdomen Pelvis w Cont CLINICAL HISTORY: Abdominal pain COMPARISON: None. TECHNIQUE: Transverse scans were obtained from the base of the lungs to the pubic symphysis following oral contrast and IV infusion of contrast.Auto dosage reduction and iterative reconstructiontechniques employed. FINDINGS: Patient's gastroesophageal stent has migrated from the distal esophagus and stomach into the mid abdomen small bowel. There are multiple moderately dilated loops of small bowel. There is some fecalization of small bowel content at the stent. There are some normal caliber small bowel loops in the right and lower abdomen. The transition point is not identified. Patient has a ventral hernia. The anterior portion of the stent is at the hernia site. No free air is seen. The lung bases are clear. The liver shows some intrahepatic biliary dilatation. The gallbladder has a normal appearance The spleen has a normal size and shape. The pancreas appears free of mass or inflammatory change. The adrenal glands appear normal bilaterally . The kidneys show no stones or hydronephrosis. There is a 5.1 x 5.6 x 5.3 cm cyst in the right kidney. The ureters have a normal course and caliber. The aorta shows some atheromatous plaque without aneurysm. There is no suspicious retroperitoneal adenopathy. There is moderate diverticulosis without evidence of diverticulitis IMPRESSION: Previous reactive surgery Small bowel distention suggesting obstruction at the mid to distal small bowel. Migration of the gastroesophageal stent into the mid small bowel. This is within the long segment of dilated small bowel and may be causitive. A definite transition point is not identified
[2021-04-21] MEDS ORDERED: Albuterol 8 GM Inhaler INH PRN (16:11)
[2021-04-21] MEDS ORDERED: Sodium Chloride 0.9% 10 ML Syringe FLUSH PRN (16:11)
[2021-04-21] MEDS ORDERED: Acetaminophen 325 MG Tab PO PRN (16:11)
[2021-04-21] MEDS ORDERED: HYDROmorphone 0.5 MG/0.5 ML Syringe IVPUSH PRN (16:11)
[2021-04-21] MEDS ORDERED: Ondansetron 4 MG/2 ML SDV IV PRN (16:11)
[2021-04-21] MEDS ORDERED: Albuterol/Ipratropium 3.0-0.5 MG/3 ML Neb Soln INH PRN (16:11)
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
[2021-04-21] MEDS: Dextrose 5%-Lactated Ringers 1,000 ML IV SCH (16:29)
[2021-04-21] MEDS ORDERED: Phytonadione 5 MG in Sodium Chloride 0.9% 50 ML IV ONE (16:30)
[2021-04-21] MEDS: Betamethasone Dipropionate 0.05% Crm 15 GM Tube TOP SCH (20:32)
[2021-04-21] MEDS: Formoterol/Mometasone 200-5 MCG 8.8 GM Inhaler IH SCH (20:33)
[2021-04-21] MEDS: Tamsulosin 0.4 MG Cap.ER PO SCH (20:35)
[2021-04-21] MEDS: PARoxetine 20 MG Tab PO SCH (20:35)
[2021-04-21] MEDS: Aspirin 81 MG Tab.EC PO SCH (20:35)
[2021-04-21] MEDS ORDERED: atorvaSTATin 20 MG Tab PO SCH (21:00)
[2021-04-22] MEDS: Dextrose 5%-Lactated Ringers 1,000 ML IV SCH (01:30)
[2021-04-22] MEDS: Metoprolol Succinate 25 MG Tab.ER PO SCH ×2 (06:30→11:07)
[2021-04-22] MEDS ORDERED: Meropenem 500 MG in Sodium Chloride 0.9% 50 ML IV ONE (06:44)
[2021-04-22] MEDS: Patient's Own Medication 1 Each INH SCH ×2 (07:00→21:06)
[2021-04-22] MEDS: Formoterol/Mometasone 200-5 MCG 8.8 GM Inhaler IH SCH (07:22)
[2021-04-22] MEDS ORDERED: HYDROmorphone/Normal Saline 15 MG/30 ML PCA IV PRN (07:27)
[2021-04-22] MEDS ORDERED: Naloxone 0.4 MG/ML SDV IV PRN (08:00)
[2021-04-22] MEDS ORDERED: Ropivacaine 34 ML, dexAMETHasone 8 MG, EPINEPHrine 0.4 MG, Sodium Chloride 0.9% 43.6 ML NERVRT SCH ×4 (08:00)
[2021-04-22] MEDS ORDERED: Meropenem 500 MG SDV IRR ONE (08:52)
[2021-04-22] MEDS ORDERED: Lidocaine 2% Jelly 10 ML Urojet ONE (08:53)
[2021-04-22] MEDS ORDERED: Non-Formulary Medication 1 Each (Sacubitril/Valsartan [Entresto 49 Mg-51 Mg Tablet] 1 EACH PO SCH (09:00)
[2021-04-22] MEDS ORDERED: LUTEIN 10 MG PO SCH (09:00)
--- NOTE | 2021-04-22 10:33 | CR ---
Abdomen 2V AP Flat Upright CLINICAL HISTORY: Follow-up S/P oh FINDINGS: Intestinal gas pattern is nonspecific. There is a gastroesophageal stent which has migrated into the mid to lower abdomen. There is gas and feces are the colon. No free air is seen. IMPRESSION: Nonspecific intestinal gas pattern Migration of the gastroesophageal stent into the small bowel
[2021-04-22] MEDS ORDERED: Dextrose 5%-Lactated Ringers 1,000 ML IV SCH ×2 (11:00→16:00)
[2021-04-22] MEDS ORDERED: diphenhydrAMINE 50 MG/ML SDV IVPUSH PRN (11:00)
[2021-04-22] MEDS ORDERED: hydrOXYzine HCL 100 MG/2 ML SDV IM PRN (11:00)
[2021-04-22] MEDS ORDERED: Labetalol 20 MG/4 ML Syringe IVPUSH PRN (11:00)
[2021-04-22] MEDS ORDERED: Metoclopramide 10 MG/2 ML SDV IVPUSH PRN (11:00)
[2021-04-22] MEDS: Fluticasone Propionate Nasal Spray 16 GM Bottle NASBOTH SCH (11:06)
[2021-04-22] MEDS: Pantoprazole 40 MG Vial IVPUSH SCH (12:07)
[2021-04-22] MEDS: Meropenem 500 MG in Sodium Chloride 0.9% 50 ML IV SCH ×2 (13:37→19:30)
[2021-04-22] MEDS: Albuterol/Ipratropium 3.0-0.5 MG/3 ML Neb Soln INH SCH ×3 (13:37→21:02)
[2021-04-22] MEDS: Acetaminophen 325 MG Tab PO SCH ×2 (13:41→21:31)
[2021-04-22] MEDS: Non-Formulary Medication 1 Each (Betamethasone/Propylene Glyc [Betamethasone Dp Aug 0.05%] TOP SCH ×2 (15:45→15:46)
[2021-04-22] MEDS: Betamethasone Dipropionate 0.05% Crm 15 GM Tube TOP SCH (15:45)
[2021-04-22] MEDS: 1: AA 5%/Calcium/D15W/Lytes 1,000 ML with MVI, Adult with Vitamin K 10 ML, Zinc/Copper/M IV SCH ×3 (16:41)
[2021-04-22] MEDS: Cyclobenzaprine 10 MG Tab PO PRN (21:02)
[2021-04-22] MEDS: Acetaminophen 500 MG Tab PO PRN (21:03)
[2021-04-22] MEDS: Tamsulosin 0.4 MG Cap.ER PO SCH (21:04)
[2021-04-22] MEDS: PARoxetine 20 MG Tab PO SCH (21:04)
[2021-04-22] MEDS: Aspirin 81 MG Tab.EC PO SCH (21:04)
[2021-04-22] MEDS: Non-Formulary Medication 1 Each (Sacubitril/Valsartan [Entresto 49 Mg-51 Mg Tablet] 1 EACH PO SCH (21:13)
[2021-04-23] MEDS: Meropenem 500 MG in Sodium Chloride 0.9% 50 ML IV SCH ×4 (02:18→19:19)
[2021-04-23] MEDS: 1: AA 5%/Calcium/D15W/Lytes 1,000 ML with MVI, Adult with Vitamin K 10 ML, Zinc/Copper/M IV SCH ×9 (02:19→22:11)
[2021-04-23] MEDS ORDERED: Iopamidol 612 MG/ML 50 ML SDV PO ONE (02:27)
[2021-04-23] MEDS: Ondansetron 4 MG/2 ML SDV IVPUSH PRN ×2 (05:54→14:38)
[2021-04-23] MEDS: Albuterol/Ipratropium 3.0-0.5 MG/3 ML Neb Soln INH SCH ×4 (07:11→21:11)
[2021-04-23] MEDS: Patient's Own Medication 1 Each INH SCH (07:12)
[2021-04-23] MEDS: Acetaminophen 325 MG Tab PO SCH ×3 (07:21→21:32)
[2021-04-23] MEDS ORDERED: Central Total Parenteral Nutrition Bag SCH (07:45)
[2021-04-23] MEDS ORDERED: Magnesium Sulfate/Water 2 GM/50 ML BAG IV SCH (07:45)
[2021-04-23] MEDS: Enoxaparin 100 MG/1 ML Syringe SUBCUT SCH (09:42)
[2021-04-23] MEDS: Fluticasone Propionate Nasal Spray 16 GM Bottle NASBOTH SCH (09:43)
[2021-04-23] MEDS: Metoprolol Succinate 25 MG Tab.ER PO SCH (09:44)
[2021-04-23] MEDS: Magnesium Sulfate/Water 2 GM in Premix Bag 1 BAG IV SCH ×3 (09:44→21:35)
--- NOTE | 2021-04-23 09:45 | CR ---
UGI Limited HISTORY: Postbariatric surgery FINDINGS: Patient swallowed water-soluble contrast. Upright views of the abdomen show no evidence of extravasation or obstruction. IMPRESSION: Status post bariatric surgery No extravasation or obstruction seen
[2021-04-23] MEDS: Pantoprazole 40 MG Vial IVPUSH SCH (11:58)
[2021-04-23] MEDS: Warfarin 2.5 MG Tab PO SCH (14:09)
[2021-04-23] MEDS: PARoxetine 20 MG Tab PO SCH (21:08)
[2021-04-23] MEDS: Aspirin 81 MG Tab.EC PO SCH (21:08)
[2021-04-23] MEDS: ADVAIR INH SCH (21:08)
[2021-04-23] MEDS: Non-Formulary Medication 1 Each (Sacubitril/Valsartan [Entresto 49 Mg-51 Mg Tablet] 1 EACH PO SCH (21:09)
[2021-04-23] MEDS: Tamsulosin 0.4 MG Cap.ER PO SCH (21:09)
[2021-04-24] MEDS: Meropenem 500 MG in Sodium Chloride 0.9% 50 ML IV SCH ×2 (02:35→08:04)
[2021-04-24] MEDS: Magnesium Sulfate/Water 2 GM in Premix Bag 1 BAG IV SCH ×4 (03:48→21:04)
[2021-04-24] MEDS: Cyclobenzaprine 10 MG Tab PO PRN ×2 (03:52→23:13)
[2021-04-24] MEDS: Albuterol/Ipratropium 3.0-0.5 MG/3 ML Neb Soln INH SCH ×4 (07:09→20:47)
[2021-04-24] MEDS: Acetaminophen 325 MG Tab PO SCH ×3 (07:12→20:59)
[2021-04-24] MEDS ORDERED: Central Total Parenteral Nutrition Bag SCH (07:15)
[2021-04-24] MEDS: ADVAIR INH SCH ×3 (07:18→20:59)
[2021-04-24] MEDS: 1: AA 5%/Calcium/D15W/Lytes 1,000 ML with MVI, Adult with Vitamin K 10 ML, Zinc/Copper/M IV SCH ×3 (08:03)
[2021-04-24] MEDS: Enoxaparin 100 MG/1 ML Syringe SUBCUT SCH (08:07)
[2021-04-24] MEDS: Fluticasone Propionate Nasal Spray 16 GM Bottle NASBOTH SCH ×2 (08:07→08:09)
[2021-04-24] MEDS: Metoprolol Succinate 25 MG Tab.ER PO SCH (08:08)
[2021-04-24] MEDS: Potassium Phosphates 20 MMOLE in Sodium Chloride 0.9% 250 ML IV SCH ×3 (09:00→15:19)
[2021-04-24] MEDS ORDERED: Cyanocobalamin (Vitamin B12) 1,000 MCG/ML SDV IM ONE (09:00)
[2021-04-24] MEDS: Pantoprazole 40 MG Vial IVPUSH SCH (11:37)
[2021-04-24] MEDS: Warfarin 2.5 MG Tab PO SCH (12:13)
[2021-04-24] MEDS: 1: Amino Acids 5%/Dextrose 15% 1,000 ML with MVI, Adult with Vitamin K 10 ML, Zinc/Copp IV SCH ×3 (18:03)
[2021-04-24] MEDS: Aspirin 81 MG Tab.EC PO SCH (20:59)
[2021-04-24] MEDS: PARoxetine 20 MG Tab PO SCH (20:59)
[2021-04-24] MEDS: Non-Formulary Medication 1 Each (Sacubitril/Valsartan [Entresto 49 Mg-51 Mg Tablet] 1 EACH PO SCH (20:59)
[2021-04-24] MEDS: Tamsulosin 0.4 MG Cap.ER PO SCH (20:59)
[2021-04-25] MEDS: Dextrose 5%-Lactated Ringers 1,000 ML IV SCH (01:11)
--- NOTE | 2021-04-25 01:35 | PN ---
DATE OF SERVICE: 04/23/2021 SUBJECTIVE: is postop day 1. His upper GI was normal. Vital signs have been stable. Pain is controlled. He has been sleeping very soundly. A little disorientated, but orientates easily once redirected. He has had no fever. Remainder of review of systems negative for any pertinent positives and negatives with the exception of postop nausea intermittently. Labs; PT 14.7, INR 1.36. Magnesium is 1.7. BNP is 758. Oral intake 240 and output 1350 via Terry catheter. The Terry catheter will be left in because of difficult insertion. OBJECTIVE: GENERAL: David Hebert is a 75-year-old male. He is quite sleepy. VITAL SIGNS: TPR is 97.8, 78, 16. Blood pressure 108/73. HEENT: Negative. NECK: Supple. HEART: Regular rate and rhythm. LUNGS: Clear. ABDOMEN: Dressing dry and intact. Abdominal binder is on. EXTREMITIES: Without peripheral edema. ASSESSMENT: 1. Insertion of left subclavian triple lumen. 2. Exploratory lap with lysis of adhesions. a. Reduction of small bowel volvulus and closure of internal hernia. b. Formation of the jejunojejunostomy to bypass. c. Enterotomy or removal of intraesophageal stent. d. Small bowel strictureplasty. e. Repair of incarcerated incisional hernia. f. Placement of Interceed mesh x2. POSTOPERATIVE DIAGNOSES: 1. Inadequate peripheral vein access. 2. Small bowel obstruction associated with: a. Focal small bowel. b. Marked edematous jejunojejunostomy. c. Esophageal stent migrated into mid small bowel associated with small bowel stricture. d. Incarcerated incisional hernia. Date of procedure: 04/22/2029. Surgeon: Dagoberto Eagle MD. PLAN: 1. Lovenox 100 mg subcu daily. 2. Restart Coumadin 2.5 mg daily for INR 1.36, PT 14.7. 3. Bariatric step 2 diet with no cereal. 4. Continue TPN same rate and content. 5. Decrease D5LR to TKO. 6. Leave Terry catheter in due to difficult insertion. 7. Magnesium 2 g IV q.6 x48 hours. 8. Labs were already ordered. 9. Continue Lovenox in the hospital and will not need Lovenox if INR 2 or greater. 10.We will evaluate p.r.n. or in a.m. Tammi Delarosa PA-C /[id number]
--- NOTE | 2021-04-25 01:38 | PN ---
DATE OF SERVICE: 04/24/2021 SUBJECTIVE: has been using his PRODUCT DEVELOPMENT COORDINATOR for pain control. He did have a Flexeril. Reports he did not sleep well last night, but staff stated he slept almost all day. Oral intake 790, urine output 1550. He remains with the Terry catheter in because of difficulty insertion. PT 13.4, INR 1.23. BNP is 855. He has no concerns or questions today. OBJECTIVE: GENERAL: David Hebert is a pleasant 75-year-old male. He is alert and awake today. VITAL SIGNS: TPR is 95.8, 78, and 18. Blood pressure 120/67. HEENT: Negative. NECK: Supple. HEART: Regular rate and rhythm. LUNGS: Clear. ABDOMEN: Dressings dry and intact. Aquacel on. Abdominal binder is on. EXTREMITIES: Without peripheral edema. GENITOURINARY: Terry catheter intact draining clear florence urine. ASSESSMENT: 1. Insertion of left subclavian triple lumen. a. Exploratory lap with lysis of adhesionsReduction of small bowel volvulus and closure of internal hernia. b. Formation of the jejunojejunostomy to bypass. c. Enterotomy or removal of intraesophageal stent. d. Small bowel strictureplasty. e. Repair of incarcerated incisional hernia. 2. Placement of Interceed mesh x2. PLAN: 1. K-Phos 60 millimoles IV 1 time today. 2. Step 3 gastric bypass diet. 3. Continue same TPN content and rate with exception of minimal acetate and maximum chloride. 4. Albumin 25 g IV daily. 5. Discontinue Terry catheter on Wednesday04/25/2021 at 0600. 6. We will evaluate p.r.n. or in a.m., and we will start bowel stimulation tomorrow. Tammi Delarosa PA-C /[id number]
[2021-04-25] MEDS: 1: Amino Acids 5%/Dextrose 15% 1,000 ML with MVI, Adult with Vitamin K 10 ML, Zinc/Copp IV SCH ×6 (04:08→14:14)
[2021-04-25] MEDS: Magnesium Sulfate/Water 2 GM in Premix Bag 1 BAG IV SCH (04:11)
[2021-04-25] MEDS: Acetaminophen 325 MG Tab PO SCH ×3 (05:02→21:27)
[2021-04-25] MEDS: Albuterol/Ipratropium 3.0-0.5 MG/3 ML Neb Soln INH SCH ×4 (07:04→21:29)
[2021-04-25] MEDS ORDERED: Central Total Parenteral Nutrition Bag SCH (07:15)
[2021-04-25] MEDS: Pantoprazole 40 MG Tab.CR PO SCH (07:32)
[2021-04-25] MEDS: ADVAIR INH SCH ×3 (07:32→21:26)
--- NOTE | 2021-04-25 08:17 | PN ---
DATE OF SERVICE: 04/25/2021 SUBJECTIVE: is feeling better today. Oral intake is 650. Urine output via Terry catheter is 6650. The pain is better controlled. He denies any nausea. He has been up ambulating and passing flatus. REVIEW OF SYSTEMS: The remainder of the review of systems is negative for any pertinent positives and negatives. OBJECTIVE: GENERAL: David Hebert is a pleasant 75-year-old male. He is alert and orientated. VITAL SIGNS: TPR 96, 87, and 18 and blood pressure 109/70. HEENT: Negative. NECK: Supple. HEART: Regular rate and rhythm. LUNGS: Clear. ABDOMEN: Dressing is dry and intact. Abdominal binder is on. EXTREMITIES: Without peripheral edema. ASSESSMENT: 1. Insertion of a left subclavian triple lumen. 2. Exploratory laparotomy with lysis of adhesions. a. Reduction of small bowel volvulus and closure of internal hernia. b. Formation of the jejunojejunostomy to bypass. c. Enteroenterostomy and removal of intraesophageal stent. d. Small bowel strictureplasty. e. Repair of an incarcerated incisional hernia. f. Placement of Interceed mesh x2. POSTOPERATIVE DIAGNOSES: 1. Inadequate peripheral vein access. 2. Small-bowel obstruction associated with: a. Focal small bowel. b. Marked edematous jejunojejunostomy. c. Esophageal stent migrated into mid small bowel associated with small bowel stricture. d. Incarcerated incisional hernia. Date of procedure: 04/22/ . Surgeon: Dagoberto Eagle MD. PLAN: 1. Discontinue J[place] KNITTER and continuous pulse ox. 2. Dilaudid 2 mg q.4 hours p.r.n. pain. 3. Colace 100 mg p.o. b.i.d. 4. Dulcolax tabs 10 mg p.o. b.i.d. 5. Continue same TPN rate and content. 6. Check CBC, CMP, phos, BNP, PT, and INR in the a.m. 7. Lasix 20 mg IV one time. 8. May shower. 9. We will evaluate p.r.n. or in the a.m. Tammi Delarosa PA-C /[id number]
[2021-04-25] MEDS ORDERED: Furosemide 20 MG/2 ML VIAL IVPUSH ONE (09:00)
[2021-04-25] MEDS: Docusate Sodium 100 MG Cap PO SCH ×2 (09:44→21:27)
[2021-04-25] MEDS: Bisacodyl 5 MG Tab PO SCH ×2 (09:44→21:27)
[2021-04-25] MEDS: Fluticasone Propionate Nasal Spray 16 GM Bottle NASBOTH SCH (09:44)
[2021-04-25] MEDS: Metoprolol Succinate 25 MG Tab.ER PO SCH (09:45)
[2021-04-25] MEDS: Enoxaparin 100 MG/1 ML Syringe SUBCUT SCH (09:45)
[2021-04-25] MEDS: HYDROmorphone 2 MG Tab PO PRN (09:57)
[2021-04-25] MEDS ORDERED: Benzocaine/Cetylpyridinium/Menthol Lozenge MUCMEM PRN (10:43)
[2021-04-25] MEDS: Warfarin 2.5 MG Tab PO SCH (12:00)
[2021-04-25] MEDS: Ondansetron 4 MG/2 ML SDV IVPUSH PRN (15:24)
[2021-04-25] MEDS: Acetaminophen 500 MG Tab PO PRN (17:54)
[2021-04-25] MEDS: Aspirin 81 MG Tab.EC PO SCH (21:27)
[2021-04-25] MEDS: Tamsulosin 0.4 MG Cap.ER PO SCH (21:27)
[2021-04-25] MEDS: PARoxetine 20 MG Tab PO SCH (21:28)
[2021-04-25] MEDS: Non-Formulary Medication 1 Each (Sacubitril/Valsartan [Entresto 49 Mg-51 Mg Tablet] 1 EACH PO SCH (21:28)
[2021-04-26] MEDS: 1: Amino Acids 5%/Dextrose 15% 1,000 ML with MVI, Adult with Vitamin K 10 ML, Zinc/Copp IV SCH ×9 (00:20→20:55)
[2021-04-26] MEDS: Acetaminophen 325 MG Tab PO SCH ×3 (05:58→21:01)
[2021-04-26] MEDS ORDERED: Central Total Parenteral Nutrition Bag SCH (07:00)
[2021-04-26] MEDS: ADVAIR INH SCH ×2 (07:35→21:02)
[2021-04-26] MEDS: Pantoprazole 40 MG Tab.CR PO SCH (07:56)
--- NOTE | 2021-04-26 09:22 | PN ---
DATE OF SERVICE: 04/26/2021 SUBJECTIVE: has been taking Tylenol for pain. States his pain is controlled. He has been up ambulating independent in the room. He did start passing flatus. Oral intake recorded was 650, with 600 at night. states he has been drinking a lot more water than that. His urine output was 4975. He did have 100% of breakfast, 25% of lunch, and 10% of dinner on a step 3 diet. TPN continues to run. Labs were done and hemoglobin is stable between 9.8 and 9.7. INR is 1.54. Potassium is 5.3. BNP did go down to 478 after Lasix yesterday. Remainder of review of systems negative for any pertinent positives and negatives. OBJECTIVE: GENERAL: David Hebert is a pleasant 75-year-old male. VITAL SIGNS: TPR is 95.2, 85, 18. Blood pressure 101/57. HEENT: Negative. NECK: Supple. HEART: Regular rate and rhythm. LUNGS: Clear. ABDOMEN: Aquacel dressing is on. Abdominal binder is on. EXTREMITIES: Without peripheral edema. ASSESSMENT: 1. Insertion of left subclavian vein triple-lumen. 2. Exploratory laparotomy with lysis of adhesions. a. Reduction of small bowel volvulus and closure of internal hernia. b. Formation of the jejunojejunostomy to bypass. c. Enteroenterostomy and removal of intraesophageal stent. d. Small bowel strictureplasty. e. Repair of incarcerated incisional hernia. f. Placement of Interceed mesh x2. POSTOPERATIVE DIAGNOSES: 1. Inadequate peripheral vein access. 2. Small bowel obstruction associated with: a. Focal small bowel. b. Marked edematous jejunojejunostomy. c. Esophageal stent migrated into mid small bowel associated with small bowel stricture. d. Incarcerated incisional hernia. 3. Date of procedure: 04/22/2021. Surgeon: Dagoberto Eagle MD. PLAN: 1. Communication order for 3 med cups. Record at bedside. 2. Accurate I and O. 3. Dulcolax suppositories b.i.d. 4. CBC, CMP, phos, BNP, PT and INR in a.m. 5. Continue same TPN rate and content. 6. We will evaluate p.r.n. or in a.m. Tammi Delarosa PA-C /[id number]
[2021-04-26] MEDS: Docusate Sodium 100 MG Cap PO SCH ×2 (09:27→21:02)
[2021-04-26] MEDS: Bisacodyl 10 MG Supp RECTAL SCH ×2 (09:27→20:59)
[2021-04-26] MEDS: Bisacodyl 5 MG Tab PO SCH ×2 (09:27→21:02)
[2021-04-26] MEDS: Fluticasone Propionate Nasal Spray 16 GM Bottle NASBOTH SCH (09:27)
[2021-04-26] MEDS: Enoxaparin 100 MG/1 ML Syringe SUBCUT SCH (09:29)
[2021-04-26] MEDS: Metoprolol Succinate 25 MG Tab.ER PO SCH (09:29)
[2021-04-26] MEDS: HYDROmorphone 2 MG Tab PO PRN ×2 (13:46→20:03)
[2021-04-26] MEDS: Warfarin 2.5 MG Tab PO SCH (13:47)
[2021-04-26] MEDS: Dextrose 5%-Lactated Ringers 1,000 ML IV SCH (20:57)
[2021-04-26] MEDS: Aspirin 81 MG Tab.EC PO SCH (21:02)
[2021-04-26] MEDS: PARoxetine 20 MG Tab PO SCH (21:02)
[2021-04-26] MEDS: Tamsulosin 0.4 MG Cap.ER PO SCH (21:02)
[2021-04-26] MEDS: Non-Formulary Medication 1 Each (Sacubitril/Valsartan [Entresto 49 Mg-51 Mg Tablet] 1 EACH PO SCH (21:02)
[2021-04-27] MEDS: Acetaminophen 325 MG Tab PO SCH (05:45)
[2021-04-27] MEDS: ADVAIR INH SCH (07:05)
[2021-04-27] MEDS: Pantoprazole 40 MG Tab.CR PO SCH (07:07)
[2021-04-27] MEDS ORDERED: Central Total Parenteral Nutrition Bag SCH (07:30)
[2021-04-27] MEDS: Bisacodyl 10 MG Supp RECTAL SCH (08:55)
[2021-04-27] MEDS: Bisacodyl 5 MG Tab PO SCH (08:55)
[2021-04-27] MEDS: Docusate Sodium 100 MG Cap PO SCH (08:55)
[2021-04-27] MEDS: Fluticasone Propionate Nasal Spray 16 GM Bottle NASBOTH SCH (08:56)
[2021-04-27] MEDS: Enoxaparin 100 MG/1 ML Syringe SUBCUT SCH (08:58)
[2021-04-27] MEDS: Metoprolol Succinate 25 MG Tab.ER PO SCH (08:59)
[2021-04-27 09:00] VITALS: BP 110/62; PULSE 76
[2021-04-27] MEDS: 1: Amino Acids 5%/Dextrose 15% 1,000 ML with MVI, Adult with Vitamin K 10 ML, Zinc/Copp IV SCH ×3 (09:01)
[2021-04-27] MEDS: HYDROmorphone 2 MG Tab PO PRN (11:00)
[2021-04-27] MEDS: Warfarin 2.5 MG Tab PO SCH (11:01)
--- NOTE | 2021-04-27 15:30 | DISCH ---
ADMISSION DIAGNOSES: 1. Partial small bowel obstruction. 2. History of esophageal stent. 3. History of deep venous thrombosis. 4. Obstructive sleep apnea, on CPAP. 5. Essential hypertension. 6. Chronic systolic heart failure. 7. Mild persistent asthma. DISCHARGE DIAGNOSES: 1. Insertion of left subclavian vein triple-lumen. 2. Exploratory laparotomy with lysis of adhesions. a. Reduction of small bowel volvulus and closure of internal hernia. b. Formation of the jejunojejunostomy to bypass. c. Enteroenterostomy and removal of intraesophageal. d. stent. e. Small bowel strictureplasty. f. Repair of incarcerated incisional hernia. g. Placement of Interceed mesh x2. POSTOPERATIVE DIAGNOSES: 1. Inadequate peripheral vein access. 2. Small bowel obstruction associated with: a. Focal small bowel. b. Marked edematous jejunostomy. c. Esophageal stent migrated into mid small bowel associated with small bowel stricture. d. Incarcerated incisional hernia. 3. Date of procedure 04/22/2021. Surgeon: Dagoberto Eagle MD. HISTORY: David Hebert is a 75-year-old male who was admitted through the emergency department with abdominal pain and nausea secondary to small bowel obstruction. He had had previous abdominal surgeries and ongoing difficulty with reflux. He did have an esophageal stent placed, but the stent became loose and migrated into the small intestine. After preoperative evaluation and discussion of possible risks and possible complications, he wished to proceed with surgical procedure. HOSPITAL COURSE: had his surgery on 04/22/2021. He had no operative complications. On postoperative day #1, he was started on Lovenox 100 mg and Coumadin was restarted. He was started on a step-2 gastric bypass diet. TPN continued to run at 100 mL per hour. His magnesium was replaced. On postoperative day 2, his K-Phos was replaced. He was started on a step-2 gastric bypass diet and albumin 25 g. On 04/25/2021, the Terry catheter was discontinued. This was left in for accurate intake and output as well as difficulty insertion. He voided without any difficulty. Bowel stimulation was started, and INSEAM TRIMMER was discontinued and started on oral pain medication. On 04/26/2021, TPN continued to run without difficulty. He was started on Dulcolax suppository, and he did have a bowel movement later in the day. On 04/27/2021, he was able to be discharged to home without any complications. Labs on the day of discharge. Hemoglobin 10. PT 17.2, INR is 1.59. Potassium 5, sodium 135, creatinine is 0.7, phosphorus 3.9, BNP 137, and albumin was 2.8. was able to be discharged without any complications. PHYSICAL EXAMINATION: GENERAL: is a 75-year-old male. VITAL SIGNS: Height 5 feet 10 inches, weight is 150 pounds, and BMI 21.5. TPR is 96.5, 87, and 16. Blood pressure 92/60. HEENT: Negative. NECK: Supple. HEART: Regular rate and rhythm. LUNGS: Clear. ABDOMEN: Aquacel dressings on. This will be replaced before discharge. Abdominal binder is on. EXTREMITIES: Without peripheral edema. DISPOSITION: Discharged to home. Declined home health care. CONDITION: Stable and improving. HOME MEDICATIONS: 1. Lovenox 100 mg subcutaneous x5 days. 2. Dilaudid 2 mg p.o. q.4 hours p.r.n. pain #12. 3. Tylenol 1000 mg q.8 hours for pain. 4. Coumadin 7.5 mg p.o. daily. 5. Flomax 0.4 mg p.o. at bedtime. 6. Simvastatin 40 mg p.o. at bedtime. 7. Entresto 49 mg-51 mg 1 tablet p.o. daily. 8. Paxil 20 mg p.o. at bedtime. 9. Toprol-XL 50 mg p.o. daily. 10.Lutein 10 mg p.o. daily. 11.Advair 500-50 one puff inhalation b.i.d. 12.Flonase 2 puffs in each nostril daily. 13.Flexeril 10 mg p.o. t.i.d. p.r.n. 14.Betamethasone GPO 0.5% 1 applicator topical b.i.d. 15.Aspirin 81 mg p.o. at bedtime. 16.Ventolin inhaler 2 puffs q.4 hours p.r.n. FOLLOWUP: With Dagoberto Eagle MD on 04/30/2021 at 10 a.m. Before his appointment, he is to come in about half hour early and get a CBC, CMP, BNP, magnesium, and PT and INR checked. DIET: Step-3 gastric bypass diet. Drink 8 to 10 glasses of water a day. ACTIVITY: No lifting greater than 10 pounds for 6 weeks. Other Activity: Walk 6 times daily inside your home. Driving: Do not drive for 1 week. Shower and bathing: May shower. Keep operative site clean and dry. Notify provider if fever, increased pain, swelling, redness, drainage, nausea, or vomiting. Other instructions: Use incentive spirometer 10 times every hour while awake and drink at least 2 protein drinks a day. /[id number]
--- NOTE | 2021-05-11 09:55 | OR ---
DATE OF PROCEDURE: 04/22/2021 SURGEON: Dagoberto Eagle MD PREOPERATIVE DIAGNOSES: 1. Indication for central venous access. 2. Small bowel obstruction. 3. Incarcerated incisional hernia. 4. Migrated esophageal stent into small bowel. POSTOPERATIVE DIAGNOSES: 1. Indication for central venous access. 2. Small bowel obstruction associated with: a. Focal small bowel volvulus. b. Marked edema of the jejunojejunostomy. c. Esophageal stent migration into mid small bowel. 3. Incarcerated incisional hernia with associated adherent small bowel resulting in small bowel stricturing. 4. Migrated esophageal stent into small bowel. OPERATIVE PROCEDURES: 1. Insertion of left subclavian vein triple-lumen catheter (97273). 2. Exploratory laparotomy with lysis of adhesions and: a. Reduction of small bowel volvulus and closure of internal hernia (93279). b. Formation of jejunojejunostomy to bypass edematous jejunojejunostomy (81960). c. Enterotomy for removal of intraluminal stent from small bowel (53059). d. Small bowel stricturoplasty (98300). e. Repair of incarcerated incisional hernia (97248). f. Placement of Interceed mesh x2 to limit recurrent adhesion formation between pelvic and abdominal wall and underlying viscera (67939). ANESTHESIA: General. MANAGER SERVICE DESK: Tammi Delarosa PA-C. INDICATIONS FOR PROCEDURE: This is a 75-year-old male, who is status post esophagogastrectomy with Colleen-en-Y reconstruction, who presents with problems with ongoing weight loss and fairly recently this has improved quite a bit and his oral intake has been reasonably sufficient. He was noted to have an enlarging incisional hernia in the midline exacerbated likely by his underlying COPD and was scheduled for a repair of this some time in May. Now presents with a small bowel obstruction, which appears to be high-grade and unlikely to resolve, and with this, plan is to proceed with exploratory laparotomy, release of small bowel obstruction, possible bowel resection, and repair of the hernia with or without mesh depending on the intraoperative findings and perceived risk of infection if a mesh is placed. The patient also will have a central line placed to remain on some IV hyperalimentation while he is here in the hospital to augment his nutritional status. The potential risks of the procedure including bleeding, infection, pneumohemothorax, vascular injury with central line insertion, problems with the laparotomy, occurrence of further bleeding, infection, injury to underlying viscera, leaks from GI tract closures, persistence of postprandial abdominal pain following the procedure, which he has had for some time as well as possibility of cardiopulmonary, septic, or hemorrhagic complications leading to . If extensive bowel work is required, we would likely not place mesh in today's procedure, knowing that the hernia in this case would likely recur especially given his underlying pulmonary status. DETAILS OF PROCEDURE: The patient was taken to the operating room, placed in a supine position, and after general endotracheal anesthesia was induced, Terry catheter was inserted and the abdomen prepped and draped. Upper midline incision from roughly a handsbreadth below the xiphoid to somewhat below the umbilicus was made and carried down through the full- thickness abdominal wall. Adhesions were taken down and the area of the stent was located in the mid common limb, having somehow migrated through the entire length of the Colleen limb, jejunojejunostomy, and down to the midportion of the common limb. With this, there was marked edema at the jejunojejunostomy. We felt that rather than converting or reconstructing this, we would be better off bypassing that area of edema, letting the Colleen limb to down below that, do a [id number] anastomosis to the common limb. This was done initially with an internal firing of the Endo-MAN 60 mm stapler. The common openings were then closed transversely with the same stapler, angles anastomosed, and mesenteric defect approximated with some 3-0 Vicryl stitch. The patient was also noted to have a focal small bowel volvulus involving the Colleen limb with passage of this underneath the mesentery of the Colleen limb. This was reduced and that defect closed with some 2-0 silk stitch. At a point in the mid small bowel, there was a dense adhesion present. This was taken down. That area of small bowel was somewhat strictured and stricturoplasty was accomplished to that level with internal firing of the Endo-MAN 60 mm stapler placed through the common antimesenteric border opening on the bowel. This was cut and closed transversely with a MAN stapler as well and the angles were anastomosed, reinforced with 3-0 Vicryl stitch. In this case, there was no mesenteric defect. Where the stent had migrated, a small enterotomy was placed on the antimesenteric border of the bowel and this at this time was then removed through this and delivered from the field. The area of enterotomy at the stent removal site was able to be closed transversely with a MAN bustillos load. This was reinforced with some 3-0 Vicryl seromuscular stitch. There was very satisfactorily lumen remaining through that area following the closure of the enterotomy. At this point, some remaining adhesions to the area of the incarcerated hernia sac and adjacent to the hernia were taken down. The hernia sac itself initially had some incarcerated omentum and transverse colon, which had been taken down upon entering the abdomen. The hernia sac was then dissected down circumferentially along the fascial edge and excised. It was felt that the mesh would not be appropriate in this case due to the contamination, particularly quite contamination related to the structures around the stent, and given this, following the completion of the remainder of procedure, the abdomen was irrigated with antibiotic-containing saline solution. Two portions of Interceed mesh were placed to the abdominal and pelvic wall including and underlying incision to prevent recurrent adhesion formation and the midline fascia was approximated with #2 Vicryl stitch, subcutaneous tissue with 2 layers of 3-0 and 4-0 Vicryl stitch, and skin with giovanna. The patient was taken to the recovery room in satisfactory condition. At the end of the case, bilateral transversus abdominis plane blocks were placed. Physician floral assistant, Tammi Delarosa, played an essential role in assisting in this case, helping to position the patient, retract structures as needed, as well as suturing and cutting sutures when indicated. Her presence improved patient safety and decreased operative time. Dagoberto Eagle MD /[id number]
== END 2021-04-27 11:54 | disposition home or self-care (01) | DRG 329 ==
LOC: JP.ED 11:20 → JP.ICU 15:22 → JP.MS 04-22 09:40 → UNDODISIN 04-22 17:30
PROVIDERS: ADMIT Hospitalist; ATTEND Surgery
PROC: 0D1A0ZA Bypass Jejunum to Jejunum, Open Approach (ICD-10-PCS; principal; 2021-04-22)
PROC: 0DS80ZZ Reposition Small Intestine, Open Approach (ICD-10-PCS; 2021-04-22)
PROC: 0DQV0ZZ Repair Mesentery, Open Approach (ICD-10-PCS; 2021-04-22)
PROC: 0WQF0ZZ Repair Abdominal Wall, Open Approach (ICD-10-PCS; 2021-04-22)
PROC: 0DC80ZZ Extirpation of Matter from Small Intestine, Open Approach (ICD-10-PCS; 2021-04-22)
PROC: 3E0M05Z Introduction of Adhesion Barrier into Peritoneal Cavity, Open Approach (ICD-10-PCS; 2021-04-22)
PROC: 05H633Z Insertion of Infusion Device into Left Subclavian Vein, Percutaneous Approach (ICD-10-PCS; 2021-04-22)
DX: K56.609 Unspecified intestinal obstruction, unspecified as to partial versus complete obstruction (principal); K43.2 Incisional hernia without obstruction or gangrene; K95.89 Other complications of other bariatric procedure; K56.2 Volvulus; I10 Essential (primary) hypertension; J45.909 Unspecified asthma, uncomplicated; G47.30 Sleep apnea, unspecified; I50.22 Chronic systolic (congestive) heart failure; K43.0 Incisional hernia with obstruction, without gangrene; K56.51 Intestinal adhesions [bands], with partial obstruction; G47.33 Obstructive sleep apnea (adult) (pediatric); I11.0 Hypertensive heart disease with heart failure; J45.30 Mild persistent asthma, uncomplicated; K46.9 Unspecified abdominal hernia without obstruction or gangrene; H54.7 Unspecified visual loss; E78.00 Pure hypercholesterolemia, unspecified; M54.9 Dorsalgia, unspecified; G89.29 Other chronic pain; M19.90 Unspecified osteoarthritis, unspecified site; Z96.651 Presence of right artificial knee joint; K21.9 Gastro-esophageal reflux disease without esophagitis; K44.9 Diaphragmatic hernia without obstruction or gangrene; F10.21 Alcohol dependence, in remission; Z91.018 Allergy to other foods; Z91.010 Allergy to peanuts; Z91.012 Allergy to eggs; Z88.5 Allergy status to narcotic agent; Z91.09 Other allergy status, other than to drugs and biological substances; Z79.01 Long term (current) use of anticoagulants; Z79.899 Other long term (current) drug therapy; Z86.718 Personal history of other venous thrombosis and embolism; Z87.01 Personal history of pneumonia (recurrent); Z85.828 Personal history of other malignant neoplasm of skin; Z86.010 Personal history of colon polyps; Z88.6 Allergy status to analgesic agent; Z79.82 Long term (current) use of aspirin
CPT/HCPCS: 36415; 74177 ×2; 80053; 85025; 85610; 96374; 96375; 99285; J2270; J2405; J7030; Q9967; 74019; 74019-26; 74240; 74240-26; 80048; 82728; 83735; 83880; 84100; 85027; 88300; 88302; 88307; 94640; 94762; 97110-GP; 97161-GP; A9270-GY; C9113; J0171; J1100; J1170; J1642; J1650; J1940; J2020; J2185; J2765; J2795; J3410; J3420; J3430; J3475; J3490; J7050; J7121; J7620-GY; P9047

== ENCOUNTER 2021-11-27 08:17 | Day surgery (SDC) | payer MEDICARE ==
[2021-11-27 08:43] VITALS: PULSE 62
[2021-11-27] MEDS ORDERED: Sodium Chloride 0.9% 10 ML Syringe FLUSH PRN (09:30)
[2021-11-27 09:40] VITALS: BP 149/65
== END 2021-11-27 09:52 | disposition home or self-care (01) ==
LOC: JP.SDS 08:17
PROVIDERS: ATTEND Ophthalmology
DX: H25.11 Age-related nuclear cataract, right eye (principal)

== ENCOUNTER 2022-01-01 08:59 | Day surgery (SDC) | payer MEDICARE ==
[2022-01-01] MEDS ORDERED: Sodium Chloride 0.9% 10 ML Syringe FLUSH PRN (10:00)
[2022-01-01 10:29] VITALS: BP 116/84; PULSE 66
== END 2022-01-01 10:30 | disposition home or self-care (01) ==
LOC: JP.SDS 08:59
PROVIDERS: ATTEND Ophthalmology
DX: H25.12 Age-related nuclear cataract, left eye (principal); J45.909 Unspecified asthma, uncomplicated; I10 Essential (primary) hypertension
CPT/HCPCS: J3490; V2632

== ENCOUNTER 2022-10-27 14:33 | Emergency (ER) | payer MEDICARE ==
[2022-10-27 15:06] LABS: ESTIMATED GFR 87 mL/min (>60)
[2022-10-27] MEDS ORDERED: methylPREDNISolone Sodium Succinate 125 MG/2 ML SDV IM ONE (16:09)
[2022-10-27 16:28] VITALS: BP 118/76; PULSE 61
== END 2022-10-27 16:42 | disposition home or self-care (01) ==
LOC: JP.ED 14:33
DX: I20.9 Angina pectoris, unspecified (principal); J45.909 Unspecified asthma, uncomplicated; E78.00 Pure hypercholesterolemia, unspecified; I10 Essential (primary) hypertension; K21.9 Gastro-esophageal reflux disease without esophagitis; Z87.891 Personal history of nicotine dependence; Z91.018 Allergy to other foods; Z91.012 Allergy to eggs; Z91.010 Allergy to peanuts; Z91.048 Other nonmedicinal substance allergy status; Z79.01 Long term (current) use of anticoagulants; Z79.899 Other long term (current) drug therapy
CPT/HCPCS: 36415; 71045; 80053; 84484; 85025; 93010; 96372; 99283; 99285; J2930

== ENCOUNTER 2024-06-30 13:30 | Emergency (ER) | payer MEDICARE ==
[2024-06-30 14:23] LABS: BASOPHILS ABSOLUTE AUTO 0.05 K/uL (0.00-0.10); BASOPHILS PERCENT AUTO 0.5 % (0.1-1.3); EOSINOPHILS ABSOLUTE AUTO 0.11 K/uL (0.00-0.40); EOSINOPHILS PERCENT AUTO 1.1 % (0.0-5.4); HEMATOCRIT 28.4 % (38.4-49.7); HEMOGLOBIN 9.4 g/dL (12.9-16.9); IMMATURE GRAN ABSOLUTE AUTO 0.08 K/uL (0.00-0.23); IMMATURE GRAN PERCENT AUTO 0.8 % (0.0-0.7); LYMPHOCYTES ABSOLUTE AUTO 1.49 K/uL (0.8-3.3); LYMPHOCYTES PERCENT AUTO 14.4 % (11.4-47.7); MEAN CORPUSCULAR HEMOGLOBIN 30.3 pg (31.6-35.5); MEAN CORPUSCULAR HGB CONC 33.1 g/dL (31.6-35.5); MEAN CORPUSCULAR VOLUME 91.6 fL (81.4-99.0); MONOCYTES ABSOLUTE AUTO 0.64 K/uL (0.20-0.90); MONOCYTES PERCENT AUTO 6.2 % (3.3-12.6); NEUTROPHILS ABSOLUTE AUTO 7.96 K/uL (1.0-7.6); PLATELET COUNT,PLT 319 K/uL (130-375); WHITE BLOOD CELL COUNT,WBC 10.3 K/uL (3.2-11.0)
[2024-06-30 14:40] LABS: CALCIUM 8.7 mg/dL (8.5-10.1); EST CRCL DRUG DOSING (CG) 55.57 mL/min; POTASSIUM,K 4.7 mmol/L (3.6-5.2)
[2024-06-30 14:41] LABS: INR 2.7; PROTHROMBIN TIME 26.7 sec (9.2-10.6)
[2024-06-30 14:45] LABS: ANION GAP 11.7 mmol/L (5.0-14.0)
[2024-06-30 15:31] VITALS: BP 89/68; PULSE 116
== END 2024-06-30 15:48 ==
LOC: JP.ED 13:30
DX: R55 Syncope and collapse (principal); I48.91 Unspecified atrial fibrillation; I10 Essential (primary) hypertension; E78.00 Pure hypercholesterolemia, unspecified; J45.909 Unspecified asthma, uncomplicated; K21.9 Gastro-esophageal reflux disease without esophagitis; M19.90 Unspecified osteoarthritis, unspecified site; Z91.010 Allergy to peanuts; Z91.012 Allergy to eggs; Z91.018 Allergy to other foods; Z91.09 Other allergy status, other than to drugs and biological substances; Z79.51 Long term (current) use of inhaled steroids; Z79.01 Long term (current) use of anticoagulants; Z79.82 Long term (current) use of aspirin; Z79.891 Long term (current) use of opiate analgesic; Z79.899 Other long term (current) drug therapy
CPT/HCPCS: 36415; 80048; 83735; 84484; 85025; 85610; 93005; 99285